=== PATIENT | female | born 1950 | race American Indian/Alaskan Native ===

== ENCOUNTER 2018-09-22 11:21 | Day surgery (SDC) | payer OTHER, MEDICARE ==
[~2018-09-22 11:21] MED LIST: ANCEF/STERILE WATER 2 GM/20 ML IV NR
[2018-09-22] MEDS ORDERED: ZOFRAN ONE (11:25)
[2018-09-22] MEDS ORDERED: DECADRON ONE (11:25)
[2018-09-22] MEDS ORDERED: XYLOCAINE CARDIAC IV ONE (11:25)
[2018-09-22] MEDS ORDERED: DIPRIVAN 10 MG/ML IV ONE (11:26)
[2018-09-22] MEDS ORDERED: SUBLIMAZE ONE (11:26)
[2018-09-22] MEDS ORDERED: LACTATED RINGERS 1,000 ML IV SCH (12:48)
--- NOTE | 2018-09-22 13:20 | Anesthesia Consultation ---
Anesthesia Consult and Med Hx Date of service: 09/22/18 - Airway Anesthetic Teeth Evaluation: Poor, Dentures (full upper, partial lower) ROM Head & Neck: Adequate Mental/Hyoid Distance: Adequate Mallampati Class: Class III Intubation Access Assessment: Possibly Difficult - Pulmonary Exam CTA: Yes - Cardiac Exam Cardiac Exam: RRR - Pre-Operative Health Status ASA Pre-Surgery Classification: ASA3 Proposed Anesthetic Plan: General - Pulmonary Hx Smoking: Yes (STOPPED 1976) Hx Asthma: No Hx Respiratory Symptoms: No COPD: No Hx Sleep Apnea: Yes (no CPAP use) - Cardiovascular System Hx Hypertension: Yes (no antihypertensive today) Hx Coronary Artery Disease: Yes Hx Heart Attack/AMI: No Hx Percutaneous Transluminal Coronary Angioplasty (PTCA): No Hx Cardia Arrhythmia: Yes (pA-fib) Hx Pacemaker: Yes (patient reports that she is not pacer dependent) - Central Nervous System Hx Seizures: No CVA: No - Gastrointestinal Hx Gastroesophageal Reflux Disease: Yes (well controlled) - Endocrine Hx Renal Disease: Yes (CKD) Hx Liver Disease: No Hx Insulin Dependent Diabetes: Yes (insulin prn for glucose >200. Reports no recent insulin use.) Hx Thyroid Disease: No - Hematic Hx Anemia: Yes - Other Systems Hx Cancer: No Hx Obesity: Yes (s/p gastric bypass 2003) - Additional Comments Anesthesia Medical History Comments: No hx anesthetic complications. Previous easy LMA 4 for similar procedure.
[2018-09-22] MEDS ORDERED: SUBLIMAZE IV PRN (13:21)
--- NOTE | 2018-09-22 13:21 | Anesthesia Day of Surgery ---
Anesthesia Day of Surgery - Day of Surgery Patient Examined: Yes Patient H&P Reviewed: Yes Patient is NPO: Yes
[2018-09-22] MEDS ORDERED: OMNIPAQUE (300 MG) IR ONE (13:29)
[2018-09-22] MEDS ORDERED: WATER FOR IRRIG STERILE IR ONE (13:31)
--- NOTE | 2018-09-22 13:48 | Short Stay Summary ---
Short Stay Documentation Date of service: 09/22/18 - History H&P: obtained from office - Allergies and Medications Current Medications: Allergies Sulfa (Sulfonamide Antibiotics) Allergy (Verified 09/03/18 11:09) Itching, VOMITING hydromorphone HCl [From Dilaudid] Adverse Reaction (Verified 09/14/18 14:07) HALLUCINATIONS,confusion oxycodone [From Percocet] Adverse Reaction (Verified 09/03/18 11:09) Itching BANDAIDS Adverse Reaction (Uncoded 09/03/18 11:09) SKIN IRRITATION Home Medications Medication Instructions Recorded Confirmed Last Taken Type Nadolol [Corgard] 40 mg PO DAILY tablet 12/10/15 09/14/18 06/23/18 Rx Mirabegron [Myrbetriq] 50 mg PO QDAY 09/19/16 09/14/18 04/27/18 History Insulin Detemir [Levemir Flextouch] 1 unit SQ QHS PRN 01/28/17 09/14/18 06/22/18 History Pantoprazole [Protonix] 40 mg PO QDAY 01/28/17 09/14/18 06/22/18 History ALPRAZolam [Xanax TAB] 1 mg PO TID 06/29/17 09/14/18 06/22/18 History Clopidogrel Bisulfate [Plavix] 75 mg PO DAILY 06/29/17 09/14/18 06/09/18 History Potassium Citrate (Nf) [Urocit K 5] 10 meq PO BID 06/29/17 09/14/18 06/22/18 History AtorvaSTATin [Lipitor] 20 mg PO QHS 04/16/18 09/14/18 06/22/18 History Ferrous Sulfate [Iron] 325 mg PO DAILY 04/16/18 09/14/18 06/22/18 History HYDROcodone/ACETAMINOPHEN [Flatgap 1 each PO PRN PRN 04/16/18 09/14/18 04/27/18 History 10-325 Tablet] Ondansetron [Zofran TAB] 4 mg PO Q8HR PRN 04/16/18 09/14/18 04/27/18 History amLODIPine [Norvasc] 5 mg PO DAILY 04/16/18 09/14/18 06/22/18 History Active Medications Cefazolin Sodium (Ancef/Sterile Water 2 Gm/20 Ml) 2 gm IV PREOP NR Stop: 09/22/18 20:00 Fentanyl (Sublimaze) 50 mcg IV Q5MIN PRN PRN Reason: Pain , Severe (7-10) Lactated Ringer's (Lactated Ringers) 1,000 mls @ 42 mls/hr IV DIRECT DIONISIO Last Admin: 09/22/18 12:58 Dose: 42 mls/hr Documented by: - Brief post op/procedure progress note Date of procedure: 09/22/18 Pre-op diagnosis: bilat hydro, hx of stones Post-op diagnosis: same Procedure: cysto, bilat rpg, bilat stent removal Anesthesia: GETA Surgeon: TIFFANIE LYNN Estimated blood loss: none Condition: stable - Hospital course Hospital course: macrobid & norco 10mg on chart - Disposition Condition at discharge: Stable Disposition: [id number]-01 TO HOME OR SELFCARE Short Stay Discharge Plan Follow up with: ADA TERRY MD [Primary Care Provider] - 7 Days
--- NOTE | 2018-09-22 14:09 | Operative Report ---
PREOPERATIVE DIAGNOSES: Bilateral hydronephrosis, history of bilateral kidney stones, history of ureteral stricture disease. POSTOPERATIVE DIAGNOSES: Bilateral hydronephrosis, history of bilateral kidney stones, history of ureteral stricture disease. PROCEDURE: Cystoscopy, bilateral retrograde pyelograms, bilateral double-J stent removal. SURGEON: Miguel Newosme MD ANESTHESIA: General. ESTIMATED BLOOD LOSS: Minimal. FLUIDS: Crystalloid. COMPLICATIONS: No complications. INDICATIONS: This patient is a 68-year-old female well known to our service with a diagnosis of kidney stones. She has been managed with a stents, stent exchange for several months. She has a history of diabetes, gastric bypass surgery done in [address] Nick. Over that time, she has developed strictures in the ureters requiring chronic stent placement. She was placed on Urocit-K after a metabolic workup in the past, which she is on now. She is also recently diagnosed with diabetic neuropathy in a setting Dr. Manolo Montes neurologist in the [place]. Last endoscopic evaluation did not see any stones and therefore today we will evaluate and possible leave her stents out. DESCRIPTION OF PROCEDURE: The patient was taken to the operative suite, placed in a supine position. After adequate general anesthesia, placed in a dorsal lithotomy position, prepped and draped in a sterile fashion. Pancystourethroscopy was performed with 22-Kazakh Storz cystoscope. No bladder pathology. Obvious stents could be seen in the bladder, no tumors or stones were noted. Both stents were engaged and pulled out individually. Bilateral retrograde pyelograms were obtained with an 8 Kazakh Karri catheter and 8 mL of contrast. No filling defects or obstruction. She has a large renal pelvis on the left side, which is a normal variant. She has a calcification in the pelvis on the right side that is not in the ureter. No hydronephrosis could be appreciated bilaterally. Stents were left out. Her bladder was drained. She was extubated and taken to recovery room. She will go home on Formoso and Macrobid. JOB# [id number] [facility]
[2018-09-22 14:49] VITALS: BP 150/76
--- NOTE | 2018-09-22 16:56 | Post Anesthesia Evaluation ---
- Post Anesthesia Evaluation Patient Participated: Yes Airway Patent: Yes Stable Respiratory Function: Yes Nausea/Vomiting: No Temp > 96.8F: Yes Pain Manageable: Yes Adequeate Hydration: Yes Anesthesia Complications: No
--- NOTE | 2018-09-23 08:01 | Fluoroscopy Report ---
FLUOROSCOPY RETROGRADE UROGRAPHY: HISTORY: Bilateral hydronephrosis. FINDINGS: Fluoroscopy was provided by radiology during retrograde urography by the urologist. 6 fluoroscopic images were captured. The images demonstrate bilateral ureteral stent removal. No obvious filling defect in the collecting systems as demonstrated. Please correlate with the procedural report as needed. IMPRESSION: Bilateral ureteral stent removal.
== END 2018-09-22 15:40 | disposition home or self-care (01) ==
LOC: OR 11:21 → MERGE 13:00 → OR 15:40
PROVIDERS: ATTEND Urology
DX: N13.30 Unspecified hydronephrosis (principal); E11.40 Type 2 diabetes mellitus with diabetic neuropathy, unspecified; I12.9 Hypertensive chronic kidney disease with stage 1 through stage 4 chronic kidney disease, or unspecified chronic kidney disease; E11.22 Type 2 diabetes mellitus with diabetic chronic kidney disease; N18.9 Chronic kidney disease, unspecified; I25.10 Atherosclerotic heart disease of native coronary artery without angina pectoris; I48.91 Unspecified atrial fibrillation; G47.30 Sleep apnea, unspecified; D64.9 Anemia, unspecified; K21.9 Gastro-esophageal reflux disease without esophagitis; M19.90 Unspecified osteoarthritis, unspecified site; F32.9 Major depressive disorder, single episode, unspecified; E66.9 Obesity, unspecified; Z68.38 Body mass index [BMI] 38.0-38.9, adult; Z98.890 Other specified postprocedural states; Z88.2 Allergy status to sulfonamides; Z79.01 Long term (current) use of anticoagulants; Z79.899 Other long term (current) drug therapy; Z79.4 Long term (current) use of insulin; Z87.891 Personal history of nicotine dependence; Z87.440 Personal history of urinary (tract) infections; Z96.0 Presence of urogenital implants; Z98.41 Cataract extraction status, right eye; Z98.42 Cataract extraction status, left eye; Z95.0 Presence of cardiac pacemaker; Z86.718 Personal history of other venous thrombosis and embolism; Z98.51 Tubal ligation status; Z90.710 Acquired absence of both cervix and uterus; Z88.8 Allergy status to other drugs, medicaments and biological substances
CPT/HCPCS: 52310; 74420; 82803; 82962; A4217; C1758; C1769; J0690; J1100; J2001; J2405; J2704; J3010; J7120; Q9967

== ENCOUNTER 2018-10-08 12:05 | Inpatient (IN) | payer OTHER, MEDICARE ==
[2018-10-08] MEDS ORDERED: SODIUM CHLORIDE FLUSH SYRINGE 10 ML IV PRN (12:11)
[2018-10-08] MEDS ORDERED: TYLENOL PO PRN (12:11)
--- NOTE | 2018-10-08 12:55 | Consultation ---
History of Present Illness - Reason for Consult Consult date: 10/08/18 HTN, DM, Requesting physician: TIFFANIE NEWSOME - History of Present Illness 68 YO Female with Obisity, HTN, DM, CAD, Atrial Fib, GERD, JOSEFINA noncompliant with CPAP admitted to urinary obstruction. Consult placed by Dr. Newsome for DM, HTN. Pt seen and evaluated in her room. Pt denies fever, chills, CP, Palpitations, NVD, Trauma, productive cough, leg swelling, calf pain, hemoptysis, prolonged travel/immobility, skin rash, or recent ill contacts. No reported nursing events. Past History Past Medical History: atrial fib, CAD, diabetes, GERD, hypertension, other (JOSEFINA) Past Surgical History: bowel surgery, Other (Pacemaker placement) Social history: . denies: smoking, alcohol abuse, prescription drug abuse Family history: diabetes, hypertension Medications and Allergies Allergies Allergy/AdvReac Type Severity Reaction Status Date / Time Sulfa (Sulfonamide Allergy Itching, Verified 09/03/18 11:09 Antibiotics) VOMITING hydromorphone HCl AdvReac HALLUCINATI Verified 09/14/18 14:07 [From Dilaudid] ONS,confusi on oxycodone [From Percocet] AdvReac Itching Verified 09/03/18 11:09 BANDAIDS AdvReac SKIN Uncoded 09/03/18 11:09 IRRITATION Home Medications Medication Instructions Recorded Confirmed Last Taken Type Nadolol [Corgard] 40 mg PO DAILY tablet 12/10/15 09/14/18 09/21/18 Rx Mirabegron [Myrbetriq] 50 mg PO QDAY 09/19/16 09/14/18 09/21/18 History Insulin Detemir [Levemir Flextouch] 1 unit SQ QHS PRN 01/28/17 09/14/18 06/22/18 History Pantoprazole [Protonix] 40 mg PO QDAY 01/28/17 09/14/18 09/21/18 History ALPRAZolam [Xanax TAB] 1 mg PO TID 06/29/17 09/14/18 09/21/18 History Clopidogrel Bisulfate [Plavix] 75 mg PO DAILY 06/29/17 09/22/18 7 Days Ago History ~09/15/18 Potassium Citrate (Nf) [Urocit K 5] 10 meq PO BID 06/29/17 09/14/18 09/21/18 History AtorvaSTATin [Lipitor] 20 mg PO QHS 04/16/18 09/14/18 09/21/18 History Ferrous Sulfate [Iron] 325 mg PO DAILY 04/16/18 09/14/18 09/21/18 History HYDROcodone/ACETAMINOPHEN [[place] 1 each PO PRN PRN 04/16/18 09/14/18 09/21/18 History 10-325 Tablet] Ondansetron [Zofran TAB] 4 mg PO Q8HR PRN 04/16/18 09/14/18 09/21/18 History amLODIPine [Norvasc] 5 mg PO DAILY 04/16/18 09/14/18 09/21/18 History Active Meds: Active Medications Acetaminophen (Tylenol) 650 mg PO Q4H PRN PRN Reason: Pain MILD(1-3)/Fever >100.5/MANNING Dextrose (D50w (25gm) Syringe) 50 ml IV PRN PRN PRN Reason: Hypoglycemia Heparin Sodium (Porcine) (Heparin) 5,000 unit SUB-Q Q12HR DIONISIO Sodium Chloride (Nacl 0.45% 1000 Ml) 1,000 mls @ 100 mls/hr IV DIRECT DIONISIO Levofloxacin/Dextrose (Levaquin 500mg/100ml) 500 mg in 100 mls @ 100 mls/hr IV Q24HR DIONISIO; Protocol Ondansetron HCl (Zofran) 4 mg IV Q8H PRN PRN Reason: Nausea And Vomiting Sodium Chloride (Sodium Chloride Flush Syringe 10 Ml) 10 ml IV BID [facility] Sodium Chloride (Sodium Chloride Flush Syringe 10 Ml) 10 ml IV PRN PRN PRN Reason: LINE FLUSH Review of Systems Constitutional: no weight loss, no weight gain, no fever, no chills Ears, nose, mouth and throat: no ear pain, no ear discharge, no tinnitis, no decreased hearing, no nose pain Breasts: no change in shape, no swelling, no mass Cardiovascular: no chest pain, no orthopnea, no palpitations, no rapid/irregular heart beat, no edema Respiratory: no cough, no cough with sputum, no excessive sputum, no hemoptysis Gastrointestinal: no nausea, no vomiting, no diarrhea, no constipation Genitourinary Female: no pelvic pain, no flank pain, no menorrhagia, no dysuria, no urinary frequency, no urgency Rectal: no pain, no incontinence, no bleeding Musculoskeletal: no neck stiffness, no neck pain, no shooting arm pain, no arm numbness/tingling, no low back pain, no shooting leg pain Integumentary: no rash, no pruritis, no redness, no sores, no wounds Neurological: no paralysis, no weakness, no parathesias, no numbness, no tingling, no syncope Psychiatric: no anxiety, no memory loss, no change in sleep habits, no sleep disturbances, no insomnia, no hypersomnia, no change in appetite Endocrine: no cold intolerance, no heat intolerance, no polyphagia, no excessive thirst, no polydipsia, no polyuria Hematologic/Lymphatic: no easy bruising, no easy bleeding, no lymphadenopathy, no lymphedema Allergic/Immunologic: no urticaria, no allergic rhinitis, no wheezing, no persistent infections, no anaphylaxis Exam - Constitutional General appearance: Present: no acute distress, well-nourished - EENT Eyes: Present: PERRL ENT: hearing intact, clear oral mucosa - Neck Neck: Present: supple, normal ROM - Respiratory Respiratory effort: normal Respiratory: bilateral: CTA - Cardiovascular Heart Sounds: Present: S1 & S2. Absent: rub, click - Extremities Extremities: pulses symmetrical, No edema Peripheral Pulses: within normal limits - Abdominal General gastrointestinal: Present: soft, non-tender, non-distended, normal bowel sounds Female genitourinary: Present: normal - Integumentary Integumentary: Present: clear, warm, dry - Musculoskeletal Musculoskeletal: gait normal, strength equal bilaterally - Psychiatric Psychiatric: appropriate mood/affect, intact judgment & insight - Neurologic Neurologic: CNII-XII intact, moves all extremities Results - Labs CBC & Chem 7: 10/08/18 13:14 10/08/18 13:14 Assessment and Plan - Patient Problems (1) HTN (hypertension) Current Visit: Yes Status: Acute Qualifiers: Hypertension type: essential hypertension Qualified Code(s): I10 - Essential (primary) hypertension Plan to address problem: Monitor BP q shift, continue medical management. (2) Diabetes Current Visit: Yes Status: Acute Plan to address problem: ADA diet, insulin, accu check (3) Obesity hypoventilation syndrome Current Visit: Yes Status: Acute Plan to address problem: CPAP qhs, NIPPV as clinically indicated, supplemental oxygen,
[2018-10-08 13:49] LABS: Basophils % (Auto) 0.4 % (0.0-1.8); Eosinophils # (Auto) 0.1 K/mm3 (0.0-0.4); Eosinophils % (Auto) 1.6 % (0.0-4.3); Hematocrit 33.8 % (30.3-42.9); Hemoglobin 10.8 gm/dl (10.1-14.3); Lymphocytes % (Auto) 15.6 % (13.4-35.0); Mean Corpuscular HGB Conc 32 % (30-34); Mean Corpuscular Volume 96 fl (79-97); Monocytes # (Auto) 0.8 K/mm3 (0.0-0.8); Monocytes % (Auto) 13.6 % (0.0-7.3); Platelet Count 241 K/mm3 (140-440); Red Blood Count 3.54 M/mm3 (3.65-5.03); Red Cell Distribution Width 17.2 % (13.2-15.2)
[2018-10-08 13:52] LABS: Calcium 8.1 mg/dL (8.4-10.2)
[2018-10-08] MEDS ORDERED: D50W (25GM) Syringe IV PRN (15:11)
--- NOTE | 2018-10-08 15:22 | XRay Report ---
AP CHEST: HISTORY: Altered mental status There is mild rotation to the left. Heart size and pulmonary vascularity appear borderline. A 2-lead pacemaker device is in place. The lungs are generally clear. No evidence for pneumonia, CHF or pneumothorax. IMPRESSION: Borderline heart size and pulmonary vascularity.
[2018-10-08] MEDS ORDERED: VERSED ONE (16:00)
[2018-10-08] MEDS ORDERED: SUBLIMAZE ONE (16:00)
[2018-10-08] MEDS ORDERED: DIPRIVAN 10 MG/ML IV ONE (16:00)
[2018-10-08] MEDS ORDERED: LACTATED RINGERS 1,000 ML ONE (16:02)
--- NOTE | 2018-10-08 16:10 | Anesthesia Day of Surgery ---
Anesthesia Day of Surgery - Day of Surgery Patient Examined: Yes Patient H&P Reviewed: Yes Patient is NPO: Yes Beta Blockers: No Tito's Test: N/A
--- NOTE | 2018-10-08 16:30 | Anesthesia Consultation ---
Anesthesia Consult and Med Hx Date of service: 10/08/18 - Airway Anesthetic Teeth Evaluation: Poor, Dentures ROM Head & Neck: Adequate Mental/Hyoid Distance: Adequate Mallampati Class: Class III Intubation Access Assessment: Good - Pulmonary Exam CTA: Yes - Cardiac Exam Cardiac Exam: RRR - Pre-Operative Health Status ASA Pre-Surgery Classification: ASA4 Proposed Anesthetic Plan: General - Pulmonary Hx Smoking: Yes (STOPPED 1976) Hx Asthma: No Hx Respiratory Symptoms: No SOB: Yes (SOB) COPD: No Hx Sleep Apnea: Yes (no CPAP use) - Cardiovascular System Hx Hypertension: Yes (no antihypertensive today) Hx Coronary Artery Disease: Yes Hx Heart Attack/AMI: No Hx Percutaneous Transluminal Coronary Angioplasty (PTCA): No Hx Cardia Arrhythmia: Yes (pA-fib) Hx Pacemaker: Yes (patient reports that she is not pacer dependent) - Central Nervous System Hx Seizures: No CVA: No - Gastrointestinal Hx Gastroesophageal Reflux Disease: Yes (well controlled) - Endocrine Hx Renal Disease: Yes (CKD) Hx Liver Disease: No Hx Insulin Dependent Diabetes: Yes (insulin prn for glucose >200. Reports no recent insulin use.) Hx Thyroid Disease: No - Hematic Hx Anemia: Yes - Other Systems Hx Cancer: No Hx Obesity: Yes (s/p gastric bypass 2003) - Additional Comments Anesthesia Medical History Comments: Per report, no problems with anesthesia. ASA IV here for cystocopy and bilateral stent placements.
[2018-10-08] MEDS ORDERED: LEVAQUIN 500MG/100ML 500 MG/100 ML BAG IV ONE (16:41)
--- NOTE | 2018-10-08 16:43 | Cat Scan Report ---
FINAL REPORT PROCEDURE: CT abdomen and pelvis without contrast. TECHNIQUE: Computerized axial tomography of the abdomen and pelvis was performed without intravenous contrast. This study is performed without intravascular contrast material and its sensitivity for ab dominal and pelvic pathology, including neoplasms, inflammation, abscess, free fluid, thrombosis, art erial dissection and infarction, is reduced compared with a contrast enhanced study. HISTORY: Hydronephrosis, sepsis. COMPARISON: No prior studies are available for comparison. FINDINGS: The lung bases are clear. There are no pleural effusions. The heart size is normal. Pacemaker leads a re noted. The liver, pancreas and spleen are grossly normal. Cholecystectomy clips are present. There is no biliary dilatation. The adrenal glands are not enlarged. There are bilateral low-attenuation m asses in the kidneys. These probably represent simple cysts, but are incompletely evaluated without c ontrast enhancement. There is severe hydronephrosis bilaterally. There is bilateral hydroureter. Ther e are 2 obstructing calculi in the distal right ureter. The largest measures 7.2 millimeters x 6.7 mi llimeters in cross-section. There is a nonobstructing calculus in the lower pole of the left kidney. This measures 8.4 millimeters. There is an obstructing calculus in the distal left ureter. This measu res 5.8 millimeters x 4.8 millimeters in cross-section. Given the severe hydronephrosis and hydrouret er bilaterally, referral to a urologist is strongly recommended. The abdominal aorta has a normal james iber. There is no retroperitoneal adenopathy. The unopacified gastrointestinal tract is unremarkable. The anterior abdominal wall is incompletely visualized. The appendix is not visualized. The bladder is nearly empty. The uterus has been removed. The regional skeleton appears intact. IMPRESSION: Severe bilateral hydronephrosis and hydroureter. Bilateral obstructing calculi in the distal ureters as described. Additional nonobstructing calculus in the left kidney. Referral to a urologist strongly recommended.
[2018-10-08] MEDS ORDERED: OMNIPAQUE 300 MG/50 ML (CATH LAB) IV ONE (17:10)
--- NOTE | 2018-10-08 17:29 | Post Operative Note ---
Date of procedure: 10/08/18 Pre-op diagnosis: bilat hydro Post-op diagnosis: other (stricture, ureteral bilat) Procedure: cysto, rpg, rt stent , attempted left stent (on plavix) Surgeon: TIFFANIE LYNN Pathology: none Specimen disposition: to lab Disposition: PACU (pt may need left perc tube)
[2018-10-08] MEDS ORDERED: AMIDATE IV ONE (17:31)
[2018-10-08] MEDS ORDERED: NEO SYNEPHRINE/NS Syringe(OR USE) IV ONE (17:31)
[2018-10-08] MEDS ORDERED: ZOFRAN ONE (17:32)
--- NOTE | 2018-10-08 19:50 | Operative Report ---
PREOPERATIVE DIAGNOSIS: Bilateral hydronephrosis. POSTOPERATIVE DIAGNOSES: Bilateral hydronephrosis due to bilateral ureteral strictures. PROCEDURE: Cystoscopy, bilateral retrograde pyelogram, right double-J stent placement (6-Mozambican 22 cm with a short internal string attempted left stent placement). SURGEON: Miguel Newsome MD ANESTHESIA: General. ESTIMATED BLOOD LOSS: Minimal. FLUIDS: Crystalloid. COMPLICATIONS: No complications. INDICATIONS FOR PROCEDURE: This patient is a 68-year-old female known to our service with long history of urolithiasis and strictures. She has a metabolic abnormality due to bariatric surgery some 20+ years ago. She was rendered stone free several months ago. Her stents were removed. She had done well until recently she presented to the office confused. Ultrasound revealed bilateral hydronephrosis. She was directly admitted to the hospital. CT of abdomen and pelvis confirmed bilateral hydro, renal insufficiency. She was then taken to surgery. DESCRIPTION OF PROCEDURE: The patient was taken to the operative suite, placed in the supine position. She was also on Plavix due to atrial fibrillation. The patient was taken to the operative suite, placed in a supine position, after adequate general anesthesia, placed in a dorsal lithotomy position, prepped and draped in a sterile fashion. Pancystourethroscopy was performed with 22-Mozambican Storz cystoscope. The patient had cloudy urine, sent for culture on the floor. Bilateral retrograde pyelograms were obtained with an 8-Mozambican [place] catheter and 8 mL of contrast, obvious distal stricture approximately 3 cm above the ureteral orifice bilaterally. I did not attempt to inject for complete pyelogram. Therefore, went to place stents, 0.035 Glidewire was placed in the right collecting system. A 6 x 22 double-J stent was placed with a short string. Attempts to place a Glidewire on the left side was unsuccessful, could get it past the initial stricture, but it appears that there was a second more dense stricture proximal, wire could not advance. At this point, I elected to since the right side was stented, leave a Mills, will leave her off her Plavix. If her symptoms worsen, she will need a left nephrostomy tube. JOB# [id number] [facility]/[place]
[2018-10-08] MEDS ORDERED: PERCOCET 5/325 PO PRN (20:51)
[2018-10-08] MEDS ORDERED: ZOFRAN IV PRN (20:52)
[2018-10-08] MEDS: LEVAQUIN 500MG/100ML 500 MG/100 ML BAG IV SCH (21:20)
[2018-10-08] MEDS ORDERED: HEPARIN SUB-Q SCH (22:00)
[2018-10-08] MEDS: MORPHINE IV PRN (22:08)
[2018-10-08] MEDS: SODIUM CHLORIDE FLUSH SYRINGE 10 ML IV SCH (22:42)
[2018-10-09] MEDS: NORCO 10/325 PO PRN (02:45)
[2018-10-09] MEDS: NACL 0.45% 1000 ML 1,000 ML IV SCH (02:46)
[2018-10-09 04:45] LABS: Basophils % (Auto) 0.4 % (0.0-1.8); Eosinophils # (Auto) 0.1 K/mm3 (0.0-0.4); Hematocrit 29.3 % (30.3-42.9); Hemoglobin 9.5 gm/dl (10.1-14.3); Lymphocytes # (Auto) 0.9 K/mm3 (1.2-5.4); Lymphocytes % (Auto) 14.9 % (13.4-35.0); Mean Corpuscular HGB Conc 32 % (30-34); Mean Corpuscular Volume 94 fl (79-97); Monocytes # (Auto) 0.8 K/mm3 (0.0-0.8); Monocytes % (Auto) 13.5 % (0.0-7.3); Platelet Count 214 K/mm3 (140-440); Red Blood Count 3.13 M/mm3 (3.65-5.03)
[2018-10-09] MEDS: MORPHINE IV PRN ×3 (04:54→17:26)
[2018-10-09 05:05] LABS: Calcium 7.6 mg/dL (8.4-10.2)
--- NOTE | 2018-10-09 13:40 | Progress Note ---
Assessment and Plan Assessment and plan: 68 YO Female with Obisity, HTN, DM, CAD, Atrial Fib, GERD, JOSEFINA noncompliant with CPAP admitted to urinary obstruction. Consult placed by Dr. Newsome for DM, HTN. Pt seen and evaluated in her room. Bilateral ureteral stricture with hydronephrosis, obstructive uropathy -management per urology sp cysto, rpg, rt stent, left stent could not be placed, may need left perc tube per urology HTN (hypertension) Monitor BP q shift, continue medical management. Diabetes ADA diet, insulin, accu check dvt ppx per primary team History Interval history: Complaining of pain in her back Review of systems Constitutional: No fevers, no malaise, no joint pains CVS: No chest pain, no orthopnea, no dyspnea on exertion, no pedal edema GI: No abdominal pain, no diarrhea, no vomiting, no constipation Respiratory: No shortness of breath, no wheezing, no coughing Hospitalist Physical - Physical exam Narrative exam: General.: Appears well, no distress, nontoxic HEENT: Moist mucous membranes, extraocular muscles intact, no lymphadenopathy Neck: supple Cardiac: S1-S2 heard Lungs: clear to auscultation bilaterally Abdomen: soft , nontender, nondistended, bowel sounds positive Extremities: no edema clubbing or cyanosis Skin: no rash or lesions Neurologic: no gross focal deficits Psych: calm, and cooperative - Constitutional Vitals: Temp Pulse Resp BP Pulse Ox 99.5 F 94 H 17 101/64 98 10/09/18 03:26 10/09/18 03:26 10/09/18 03:26 10/09/18 03:26 10/09/18 03:26 General appearance: Present: no acute distress, well-nourished Results - Labs CBC & Chem 7: 10/09/18 04:18 10/10/18 09:04 Labs: Laboratory Last Values WBC 5.9 K/mm3 (4.5-11.0) 10/09/18 04:18 RBC 3.13 M/mm3 (3.65-5.03) L 10/09/18 04:18 Hgb 9.5 gm/dl (10.1-14.3) L 10/09/18 04:18 Hct 29.3 % (30.3-42.9) L 10/09/18 04:18 MCV 94 fl (79-97) 10/09/18 04:18 MCH 30 pg (28-32) 10/09/18 04:18 MCHC 32 % (30-34) 10/09/18 04:18 RDW 17.0 % (13.2-15.2) H 10/09/18 04:18 Plt Count 214 K/mm3 (140-440) 10/09/18 04:18 Lymph % (Auto) 14.9 % (13.4-35.0) 10/09/18 04:18 [place] % (Auto) 13.5 % (0.0-7.3) H 10/09/18 04:18 Eos % (Auto) 1.0 % (0.0-4.3) 10/09/18 04:18 Baso % (Auto) 0.4 % (0.0-1.8) 10/09/18 04:18 Lymph # 0.9 K/mm3 (1.2-5.4) L 10/09/18 04:18 [place] # 0.8 K/mm3 (0.0-0.8) 10/09/18 04:18 Eos # 0.1 K/mm3 (0.0-0.4) 10/09/18 04:18 Baso # 0.0 K/mm3 (0.0-0.1) 10/09/18 04:18 Seg Neutrophils % 70.2 % (40.0-70.0) H 10/09/18 04:18 Seg Neutrophils # 4.2 K/mm3 (1.8-7.7) 10/09/18 04:18 Sodium 141 mmol/L (137-145) 10/09/18 04:18 Potassium 4.8 mmol/L (3.6-5.0) 10/09/18 04:18 Chloride 113.2 mmol/L (98-107) H 10/09/18 04:18 Carbon Dioxide 16 mmol/L (22-30) L 10/09/18 04:18 Anion Gap 17 mmol/L 10/09/18 04:18 BUN 27 mg/dL (7-17) H 10/09/18 04:18 Creatinine 2.7 mg/dL (0.7-1.2) H 10/09/18 04:18 Estimated GFR 21 ml/min 10/09/18 04:18 BUN/Creatinine Ratio 10 % 10/09/18 04:18 Glucose 88 mg/dL (65-100) 10/09/18 04:18 POC Glucose 81 (70-105) 10/09/18 11:56 Calcium 7.6 mg/dL (8.4-10.2) L 10/09/18 04:18
[2018-10-09] MEDS: LEVAQUIN 500MG/100ML 500 MG/100 ML BAG IV SCH (17:27)
[2018-10-09] MEDS: SODIUM CHLORIDE FLUSH SYRINGE 10 ML IV SCH ×2 (17:27→21:58)
[2018-10-10] MEDS: MORPHINE IV PRN ×3 (00:10→13:23)
[2018-10-10] MEDS: ZOFRAN IV PRN ×3 (00:11→13:23)
[2018-10-10] MEDS: NORCO 10/325 PO PRN ×3 (04:07→23:29)
[2018-10-10] MEDS: NACL 0.45% 1000 ML 1,000 ML IV SCH (04:10)
--- NOTE | 2018-10-10 08:48 | Progress Note ---
Assessment and Plan hydro needs ir check creat Subjective Date of service: 10/10/18 Principal diagnosis: hydro Objective - Constitutional Vitals: Vital Signs - 12hr 10/09/18 10/09/18 10/10/18 20:48 23:49 03:43 Temperature 98.8 F 98.6 F Pulse Rate 92 H 90 Respiratory 17 17 Rate Blood Pressure 129/69 108/59 Blood Pressure [Left] O2 Sat by Pulse 94 99 98 Oximetry 10/10/18 10/10/18 08:01 08:11 Temperature 98.2 F Pulse Rate 84 85 Respiratory 16 Rate Blood Pressure Blood Pressure 106/76 [Left] O2 Sat by Pulse 100 Oximetry General appearance: Present: no acute distress - Respiratory Respiratory effort: normal - Labs CBC & Chem 7: 10/09/18 04:18 10/09/18 04:18 Medications & Allergies - Medications Allergies/Adverse Reactions: Allergies Sulfa (Sulfonamide Antibiotics) Allergy (Verified 09/03/18 11:09) Itching, VOMITING hydromorphone HCl [From Dilaudid] Adverse Reaction (Verified 09/14/18 14:07) HALLUCINATIONS,confusion oxycodone [From Percocet] Adverse Reaction (Verified 09/03/18 11:09) Itching BANDAIDS Adverse Reaction (Uncoded 09/03/18 11:09) SKIN IRRITATION Home Medications: Home Medications Medication Instructions Recorded Confirmed Last Taken Type Nadolol [Corgard] 40 mg PO DAILY tablet 12/10/15 09/14/18 09/21/18 Rx Mirabegron [Myrbetriq] 50 mg PO QDAY 09/19/16 09/14/18 09/21/18 History Insulin Detemir [Levemir Flextouch] 1 unit SQ QHS PRN 01/28/17 09/14/18 06/22/18 History Pantoprazole [Protonix] 40 mg PO QDAY 01/28/17 09/14/18 09/21/18 History ALPRAZolam [Xanax TAB] 1 mg PO TID 06/29/17 09/14/18 09/21/18 History Clopidogrel Bisulfate [Plavix] 75 mg PO DAILY 06/29/17 09/22/18 7 Days Ago Hi story ~09/15/18 Potassium Citrate (Nf) [Urocit K 5] 10 meq PO BID 1109/14/18 09/21/18 History AtorvaSTATin [Lipitor] 20 mg PO QHS 04/16/18 09/14/18 09/21/18 History Ferrous Sulfate [Iron] 325 mg PO DAILY 04/16/18 09/14/18 09/21/18 History HYDROcodone/ACETAMINOPHEN [[place] 1 each PO PRN PRN 04/16/18 09/14/18 09/21/18 History 10-325 Tablet] Ondansetron [Zofran TAB] 4 mg PO Q8HR PRN 04/16/18 09/14/18 09/21/18 History amLODIPine [Norvasc] 5 mg PO DAILY 04/16/18 09/14/18 09/21/18 History Active Medications: Generic Name Dose Route Start Last Admin Trade Name Freq PRN Reason Stop Dose Admin Acetaminophen/Hydrocodone Bitart 1 each 10/08/18 21:43 10/10/18 04:07 [place] 10/325 PO 1 each Q4H PRN Administration Pain, Moderate (4-6) Dextrose 50 ml 10/08/18 15:11 D50w (25gm) Syringe IV PRN PRN Hypoglycemia Sodium Chloride 1,000 mls @ 100 mls/hr 10/08/18 15:00 10/10/18 04:10 Nacl 0.45% 1000 Ml IV 100 mls/hr DIRECT DIONISIO Administration Levofloxacin/Dextrose 500 mg in 100 mls @ 100 mls/hr 10/08/18 16:00 10/09/18 20:18 Levaquin 500mg/100ml IV Infused Q24H DIONISIO Infusion Protocol Morphine Sulfate 2 mg 10/08/18 21:44 10/10/18 06:12 Morphine IV 2 mg Q4H PRN Administration Pain, Moderate (4-6) Ondansetron HCl 4 mg 10/08/18 12:11 10/10/18 04:12 Zofran IV 4 mg Q8H PRN Administration Nausea And Vomiting Sodium Chloride 10 ml 10/08/18 22:00 10/09/18 21:58 Sodium Chloride Flush Syringe 10 Ml IV 10 ml BID DIONISIO Administration Sodium Chloride 10 ml 10/08/18 12:11 Sodium Chloride Flush Syringe 10 Ml IV PRN PRN LINE FLUSH
[2018-10-10 10:39] LABS: Calcium 7.3 mg/dL (8.4-10.2)
--- NOTE | 2018-10-10 13:35 | Progress Note ---
Assessment and Plan Assessment and plan: 68 YO Female with Obisity, HTN, DM, CAD, Atrial Fib, GERD, JOSEFINA noncompliant with CPAP admitted to urinary obstruction. Consult placed by Dr. Newsome for DM, HTN. Pt seen and evaluated in her room. Bilateral ureteral stricture with hydronephrosis, obstructive uropathy -management per urology sp cysto, rpg, rt stent, left stent could not be placed, may need left perc tube per urology HTN (hypertension) Monitor BP q shift, continue medical management. Diabetes ADA diet, insulin, accu check dvt ppx per primary team History Interval history: Complaining of pain in her back Review of systems Constitutional: No fevers, no malaise, no joint pains CVS: No chest pain, no orthopnea, no dyspnea on exertion, no pedal edema GI: No abdominal pain, no diarrhea, no vomiting, no constipation Respiratory: No shortness of breath, no wheezing, no coughing Hospitalist Physical - Physical exam Narrative exam: General.: Appears well, no distress, nontoxic HEENT: Moist mucous membranes, extraocular muscles intact, no lymphadenopathy Neck: supple Cardiac: S1-S2 heard Lungs: clear to auscultation bilaterally Abdomen: soft , nontender, nondistended, bowel sounds positive Extremities: no edema clubbing or cyanosis Skin: no rash or lesions Neurologic: no gross focal deficits Psych: calm, and cooperative - Constitutional Vitals: Temp Pulse Resp BP Pulse Ox 98.2 F 85 16 106/76 100 10/10/18 08:01 10/10/18 08:11 10/10/18 13:23 10/10/18 08:01 10/10/18 08:11 General appearance: Present: no acute distress Results - Labs CBC & Chem 7: 10/12/18 11:55 10/12/18 11:55 Labs: Laboratory Last Values WBC 5.9 K/mm3 (4.5-11.0) 10/09/18 04:18 RBC 3.13 M/mm3 (3.65-5.03) L 10/09/18 04:18 Hgb 9.5 gm/dl (10.1-14.3) L 10/09/18 04:18 Hct 29.3 % (30.3-42.9) L 10/09/18 04:18 MCV 94 fl (79-97) 10/09/18 04:18 MCH 30 pg (28-32) 10/09/18 04:18 MCHC 32 % (30-34) 10/09/18 04:18 RDW 17.0 % (13.2-15.2) H 10/09/18 04:18 Plt Count 214 K/mm3 (140-440) 10/09/18 04:18 Lymph % (Auto) 14.9 % (13.4-35.0) 10/09/18 04:18 [place] % (Auto) 13.5 % (0.0-7.3) H 10/09/18 04:18 Eos % (Auto) 1.0 % (0.0-4.3) 10/09/18 04:18 Baso % (Auto) 0.4 % (0.0-1.8) 10/09/18 04:18 Lymph # 0.9 K/mm3 (1.2-5.4) L 10/09/18 04:18 [place] # 0.8 K/mm3 (0.0-0.8) 10/09/18 04:18 Eos # 0.1 K/mm3 (0.0-0.4) 10/09/18 04:18 Baso # 0.0 K/mm3 (0.0-0.1) 10/09/18 04:18 Seg Neutrophils % 70.2 % (40.0-70.0) H 10/09/18 04:18 Seg Neutrophils # 4.2 K/mm3 (1.8-7.7) 10/09/18 04:18 Sodium 139 mmol/L (137-145) 10/10/18 09:04 Potassium 5.0 mmol/L (3.6-5.0) 10/10/18 09:04 Chloride 111.2 mmol/L (98-107) H 10/10/18 09:04 Carbon Dioxide 18 mmol/L (22-30) L 10/10/18 09:04 Anion Gap 15 mmol/L 10/10/18 09:04 BUN 22 mg/dL (7-17) H 10/10/18 09:04 Creatinine 2.6 mg/dL (0.7-1.2) H 10/10/18 09:04 Estimated GFR 22 ml/min 10/10/18 09:04 BUN/Creatinine Ratio 8 % 10/10/18 09:04 Glucose 96 mg/dL (65-100) 10/10/18 09:04 POC Glucose 81 (70-105) 10/10/18 12:05 Calcium 7.3 mg/dL (8.4-10.2) L 10/10/18 09:04
--- NOTE | 2018-10-10 14:24 | Consultation ---
History of Present Illness - Reason for Consult Consult date: 10/10/18 Hydronephrosis - History of Present Illness 68 YO Female with Obisity, HTN, DM, CAD, Atrial Fib, GERD, JOSEFINA noncompliant with CPAP admitted to urinary obstruction. Consult placed by Dr. Newsome for DM, HTN. Pt seen and evaluated in her room. Pt denies fever, chills, CP, Palpitations, NVD, Trauma, productive cough, leg swelling, calf pain, hemoptysis, prolonged travel/immobility, skin rash, or recent ill contacts. No reported nursing events. Had right ureteral stent placed. Could not place left sided stent. Discussed le ft nephrostomy with patient and daughter. Has had multiple nephrostomy tubes in the past. R/B/A discussed. Past History Past Medical History: atrial fib, CAD, diabetes, GERD, hypertension, other (JOSEFINA) Past Surgical History: bowel surgery, Other (Pacemaker placement) Social history: . denies: smoking, alcohol abuse, prescription drug abuse Family history: diabetes, hypertension Medications and Allergies Allergies Allergy/AdvReac Type Severity Reaction Status Date / Time Sulfa (Sulfonamide Allergy Itching, Verified 09/03/18 11:09 Antibiotics) VOMITING hydromorphone HCl AdvReac HALLUCINATI Verified 09/14/18 14:07 [From Dilaudid] ONS,confusi on oxycodone [From Percocet] AdvReac Itching Verified 09/03/18 11:09 BANDAIDS AdvReac SKIN Uncoded 09/03/18 11:09 IRRITATION Home Medications Medication Instructions Recorded Confirmed Last Taken Type RX: Nadolol [Corgard] 40 mg PO DAILY tablet 12/10/15 10/10/18 10/08/18 10:00 Rx Mirabegron [Myrbetriq] 50 mg PO QDAY 09/19/16 10/10/18 10/08/18 History Insulin Detemir [Levemir Flextouch] 1 unit SQ QHS PRN 01/28/17 10/10/18 06/22/18 History Pantoprazole [Protonix] 40 mg PO QDAY 01/28/17 10/10/18 10/08/18 10:00 History Clopidogrel Bisulfate [Plavix] 75 mg PO DAILY 06/29/17 10/10/18 7 Days Ago History ~09/15/18 Potassium Citrate (Nf) [Urocit K 5] 10 meq PO BID 06/29/17 10/10/18 10/08/18 History RX: ALPRAZolam [Xanax TAB] 1 mg PO TID 06/29/17 10/10/18 09/21/18 History AtorvaSTATin [Lipitor] 20 mg PO QHS 04/16/18 10/10/18 09/21/18 History Ferrous Sulfate [Iron] 325 mg PO DAILY 04/16/18 10/10/18 10/08/18 History HYDROcodone/ACETAMINOPHEN [[place] 1 each PO PRN PRN 04/16/18 10/10/18 10/08/18 History 10-325 Tablet] Ondansetron [Zofran TAB] 4 mg PO Q8HR PRN 04/16/18 10/10/18 10/08/18 History amLODIPine [Norvasc] 5 mg PO DAILY 04/16/18 10/10/18 10/08/18 10:00 History Active Meds: Active Medications Acetaminophen/Hydrocodone Bitart ([place] 10/325) 1 each PO Q4H PRN PRN Reason: Pain, Moderate (4-6) Last Admin: 10/10/18 04:07 Dose: 1 each Documented by: Dextrose (D50w (25gm) Syringe) 50 ml IV PRN PRN PRN Reason: Hypoglycemia Sodium Chloride (Nacl 0.45% 1000 Ml) 1,000 mls @ 100 mls/hr IV DIRECT DIONISIO Last Admin: 10/10/18 04:10 Dose: 100 mls/hr Documented by: Levofloxacin/Dextrose (Levaquin 500mg/100ml) 500 mg in 100 mls @ 100 mls/hr IV Q24H DIONISIO; Protocol Last Infusion: 10/09/18 20:18 Dose: Infused Documented by: Morphine Sulfate (Morphine) 2 mg IV Q4H PRN PRN Reason: Pain, Moderate (4-6) Last Admin: 10/10/18 13:23 Dose: 2 mg Documented by: Ondansetron HCl (Zofran) 4 mg IV Q8H PRN PRN Reason: Nausea And Vomiting Last Admin: 10/10/18 13:23 Dose: 4 mg Documented by: Sodium Chloride (Sodium Chloride Flush Syringe 10 Ml) 10 ml IV BID DIONISIO Last Admin: 10/09/18 21:58 Dose: 10 ml Documented by: Sodium Chloride (Sodium Chloride Flush Syringe 10 Ml) 10 ml IV PRN PRN PRN Reason: LINE FLUSH Review of Systems All systems: negative (see HPI) Exam - Constitutional Vitals: Temp Pulse Resp BP Pulse Ox 98.2 F 85 16 106/76 100 10/10/18 08:01 10/10/18 08:11 10/10/18 13:23 10/10/18 08:01 10/10/18 08:11 General appearance: Present: mild distress (mild right flank pain) - EENT Eyes: Present: EOM intact - Respiratory Respiratory effort: normal - Extremities Extremities: normal temperature, normal color - Psychiatric Psychiatric: appropriate mood/affect, cooperative Results - Labs CBC & Chem 7: 10/09/18 04:18 10/10/18 09:04 Labs: Abnormal lab results 10/10/18 Range/Units 09:04 Chloride 111.2 H (98-107) mmol/L Carbon Dioxide 18 L (22-30) mmol/L BUN 22 H (7-17) mg/dL Creatinine 2.6 H (0.7-1.2) mg/dL Calcium 7.3 L (8.4-10.2) mg/dL - Imaging and Cardiology CT scan - abdomen: report reviewed, image reviewed Assessment and Plan 68 year old female with renal calculi, CRI with possible superimposed MAURICIO, bilateral hydronephrosis with obstructing renal calculi and cystoscopy with right sided ureteral stent placed. Off of plavix for at least 1 week per patient and daughter. Confirmed with them multiple times. NPO after MN. Plan for left nephrostomy tube placement and possible ureteral stent.
[2018-10-10] MEDS: SODIUM CHLORIDE FLUSH SYRINGE 10 ML IV SCH ×2 (15:01→21:43)
[2018-10-10] MEDS ORDERED: INSULIN DETEMIR SQ PRN (16:36)
[2018-10-10] MEDS ORDERED: NORCO 10/325 PO PRN (16:36)
[2018-10-10] MEDS: LEVAQUIN 500MG/100ML 500 MG/100 ML BAG IV SCH (19:53)
[2018-10-10] MEDS: LEVAQUIN PO SCH (19:53)
[2018-10-10] MEDS ORDERED: LEVAQUIN PO SCH (20:00)
[2018-10-10] MEDS: XANAX PO SCH (21:41)
[2018-10-10] MEDS ORDERED: POTASSIUM CITRATE 10 MEQ PO SCH (22:00)
[2018-10-10] MEDS: ZOFRAN ODT PO PRN (23:28)
[2018-10-11] MEDS: MORPHINE IV PRN ×2 (05:47→22:01)
--- NOTE | 2018-10-11 07:32 | Fluoroscopy Report ---
FLUOROSCOPY RETROGRADE UROGRAPHY: HISTORY: Bilateral ureteral strictures. FINDINGS: Fluoroscopy was provided by radiology during retrograde urography by the urologist. 6 fluoroscopic images were captured. The images demonstrate high grade focal strictures in both distal ureters near the level of S3. A right ureteral stent was placed with good drainage of the right collecting system. Left ureteral stent placement was attempted but unsuccessful procedure operative notes. IMPRESSION: Bilateral ureteral strictures as described. Right ureteral stent placement. Please correlate with the operative report as needed.
[2018-10-11] MEDS: PROTONIX PO SCH (09:05)
[2018-10-11] MEDS: XANAX PO SCH ×3 (09:05→20:10)
[2018-10-11] MEDS: ZOFRAN IV PRN ×2 (09:06→22:04)
[2018-10-11] MEDS ORDERED: NON-FORMULARY (Mirabegron [Myrbetriq] 50 MG) PO SCH (10:00)
[2018-10-11] MEDS: PLAVIX PO SCH (10:15)
[2018-10-11] MEDS: CORGARD PO SCH (10:15)
[2018-10-11] MEDS: NORVASC PO SCH (10:15)
[2018-10-11] MEDS: FEOSOL PO SCH (10:15)
[2018-10-11] MEDS: SODIUM CHLORIDE FLUSH SYRINGE 10 ML IV SCH (10:16)
--- NOTE | 2018-10-11 12:53 | Progress Note ---
Subjective Date of service: 10/11/18 Principal diagnosis: hydro Interval history: s/p rt stent attemped left Dr. Naik saw for perc +/- stent tomorrow (left) kidney fx better Objective - Constitutional Vitals: Vital Signs - 12hr 10/11/18 10/11/18 10/11/18 04:02 07:04 07:28 Temperature 98.6 F 98.0 F Pulse Rate 83 83 Respiratory 17 20 Rate Blood Pressure 105/55 113/61 O2 Sat by Pulse 98 98 95 Oximetry 10/11/18 11:14 Temperature 98.0 F Pulse Rate 90 Respiratory 16 Rate Blood Pressure 102/54 O2 Sat by Pulse 99 Oximetry - Labs CBC & Chem 7: 10/09/18 04:18 10/10/18 09:04 Labs: Abnormal lab results 10/11/18 Range/Units 00:25 POC Glucose 118 H (70-105) Medications & Allergies - Medications Allergies/Adverse Reactions: Allergies Sulfa (Sulfonamide Antibiotics) Allergy (Verified 09/03/18 11:09) Itching, VOMITING hydromorphone HCl [From Dilaudid] Adverse Reaction (Verified 09/14/18 14:07) HALLUCINATIONS,confusion oxycodone [From Percocet] Adverse Reaction (Verified 09/03/18 11:09) Itching BANDAIDS Adverse Reaction (Uncoded 09/03/18 11:09) SKIN IRRITATION Home Medications: Home Medications Medication Instructions Recorded Confirmed Last Taken Type Nadolol [Corgard] 40 mg PO DAILY tablet 12/10/15 10/10/18 10/08/18 10:00 Rx Mirabegron [Myrbetriq] 50 mg PO QDAY 09/19/16 10/10/18 10/08/18 History Insulin Detemir [Levemir Flextouch] 1 unit SQ QHS PRN 01/28/17 10/10/18 06/22/18 History Pantoprazole [Protonix] 40 mg PO QDAY 01/28/17 10/10/18 10/08/18 10:00 History ALPRAZolam [Xanax TAB] 1 mg PO TID 06/29/17 10/10/18 09/21/18 History Clopidogrel Bisulfate [Plavix] 75 mg PO DAILY 06/29/17 10/10/18 7 Days Ago History ~09/15/18 Potassium Citrate (Nf) [Urocit K 5] 10 meq PO BID 06/29/17 10/10/18 10/08/18 History AtorvaSTATin [Lipitor] 20 mg PO QHS 04/16/18 10/10/18 09/21/18 History Ferrous Sulfate [Iron] 325 mg PO DAILY 04/16/18 10/10/18 10/08/18 History HYDROcodone/ACETAMINOPHEN [[place] 1 each PO PRN PRN 04/16/18 10/10/18 10/08/18 History 10-325 Tablet] Ondansetron [Zofran TAB] 4 mg PO Q8HR PRN 04/16/18 10/10/18 10/08/18 History amLODIPine [Norvasc] 5 mg PO DAILY 04/16/18 10/10/18 10/08/18 10:00 History Active Medications: Generic Name Dose Route Start Last Admin Trade Name Freq PRN Reason Stop Dose Admin Acetaminophen/Hydrocodone Bitart 1 each 10/08/18 21:43 10/10/18 23:29 [place] 10/325 PO 1 each Q4H PRN Administration Pain, Moderate (4-6) Acetaminophen/Hydrocodone Bitart 1 each 10/10/18 16:36 [place] 10/325 PO Q6H PRN Pain , Severe (7-10) Alprazolam 1 mg 10/10/18 20:00 10/11/18 09:05 Xanax PO 1 mg TID DIONISIO Administration Amlodipine Besylate 5 mg 10/11/18 10:00 10/11/18 10:15 Norvasc PO Not Given DAILY DIONISIO Atorvastatin Calcium 20 mg 10/10/18 22:00 10/10/18 21:28 Lipitor PO 20 mg QHS DIONISIO Administration Clopidogrel Bisulfate 75 mg 10/11/18 10:00 10/11/18 10:15 Plavix PO Not Given DAILY [facility] Dextrose 50 ml 10/08/18 15:11 D50w (25gm) Syringe IV PRN PRN Hypoglycemia Ferrous Sulfate 325 mg 10/11/18 10:00 10/11/18 10:15 Feosol PO Not Given DAILY DIONISIO Sodium Chloride 1,000 mls @ 100 mls/hr 10/08/18 15:00 10/10/18 04:10 Nacl 0.45% 1000 Ml IV 100 mls/hr DIRECT DIONISIO Administration Levofloxacin 750 mg 10/10/18 20:00 10/10/18 21:41 Levaquin PO 750 mg Q24H DIONISIO Administration Miscellaneous Medication 1 unit 10/10/18 16:36 Insulin Detemir [Levemir Flextouch] SQ QHS PRN Hyperglycemia Miscellaneous Medication 50 mg 10/11/18 10:00 Mirabegron [Myrbetriq] PO QDAY [facility] Miscellaneous Medication 10 meq 10/10/18 22:00 Potassium Citrate (Nf) PO BID [facility] Morphine Sulfate 2 mg 10/08/18 21:44 10/11/18 05:47 Morphine IV 2 mg Q4H PRN Administration Pain, Moderate (4-6) Nadolol 40 mg 10/11/18 10:00 10/11/18 10:15 Corgard PO Not Given DAILY [facility] Ondansetron HCl 4 mg 10/08/18 12:11 10/11/18 09:06 Zofran IV 4 mg Q8H PRN Administration Nausea And Vomiting Ondansetron HCl 4 mg 10/10/18 16:36 10/10/18 23:28 Zofran Odt PO 4 mg Q8H PRN Administration Nausea Pantoprazole Sodium 40 mg 10/11/18 10:00 10/11/18 09:05 Protonix PO 40 mg QDAY [facility] Administration Sodium Chloride 10 ml 10/08/18 22:00 10/11/18 10:16 Sodium Chloride Flush Syringe 10 Ml IV Not Given BID DIONISIO Sodium Chloride 10 ml 10/08/18 12:11 Sodium Chloride Flush Syringe 10 Ml IV PRN PRN LINE FLUSH
[2018-10-11] MEDS ORDERED: NACL 0.9% 500 ML 500 ML ONE (13:35)
[2018-10-11] MEDS ORDERED: NACL 0.9% 500 ML IR ONE (13:35)
[2018-10-11] MEDS ORDERED: ANCEF/STERILE WATER 2 GM/20 ML 2 GM/20 ML SYRINGE IV ONE (13:35)
[2018-10-11] MEDS ORDERED: XYLOCAINE 2% INFILTRATI ONE (13:36)
[2018-10-11] MEDS: VERSED ONE ×5 (14:10→14:37)
[2018-10-11] MEDS: SUBLIMAZE ONE ×5 (14:10→14:37)
[2018-10-11] MEDS: LEVAQUIN PO SCH (14:20)
[2018-10-11] MEDS ORDERED: LEVAQUIN 500MG/100ML 500 MG/100 ML BAG IV ONE (14:32)
--- NOTE | 2018-10-11 14:51 | Progress Note ---
Assessment and Plan Assessment and plan: 68 YO Female with Obisity, HTN, DM, CAD, Atrial Fib, GERD, JOSEFINA noncompliant with CPAP admitted to urinary obstruction. Consult placed by Dr. Newsome for DM, HTN. Pt seen and evaluated in her room. Bilateral ureteral stricture with hydronephrosis, obstructive uropathy -management per urology sp cysto, rpg, rt stent, left stent could not be placed, may need left perc tube per urology HTN (hypertension) Monitor BP q shift, continue medical management. Diabetes ADA diet, insulin, accu check dvt ppx per primary team History Interval history: Complaining of pain in her back Review of systems Constitutional: No fevers, no malaise, no joint pains CVS: No chest pain, no orthopnea, no dyspnea on exertion, no pedal edema GI: No abdominal pain, no diarrhea, no vomiting, no constipation Respiratory: No shortness of breath, no wheezing, no coughing Hospitalist Physical - Physical exam Narrative exam: General.: Appears well, no distress, nontoxic HEENT: Moist mucous membranes, extraocular muscles intact, no lymphadenopathy Neck: supple Cardiac: S1-S2 heard Lungs: clear to auscultation bilaterally Abdomen: soft , nontender, nondistended, bowel sounds positive Extremities: no edema clubbing or cyanosis Skin: no rash or lesions Neurologic: no gross focal deficits Psych: calm, and cooperative - Constitutional Vitals: Temp Pulse Resp BP Pulse Ox 98.0 F 90 16 102/54 99 10/11/18 11:14 10/11/18 11:14 10/11/18 11:14 10/11/18 11:14 10/11/18 11:14 General appearance: Present: mild distress (mild right flank pain) Results - Labs CBC & Chem 7: 10/12/18 11:55 10/12/18 11:55 Labs: Laboratory Last Values WBC 5.9 K/mm3 (4.5-11.0) 10/09/18 04:18 RBC 3.13 M/mm3 (3.65-5.03) L 10/09/18 04:18 Hgb 9.5 gm/dl (10.1-14.3) L 10/09/18 04:18 Hct 29.3 % (30.3-42.9) L 10/09/18 04:18 MCV 94 fl (79-97) 10/09/18 04:18 MCH 30 pg (28-32) 10/09/18 04:18 MCHC 32 % (30-34) 10/09/18 04:18 RDW 17.0 % (13.2-15.2) H 10/09/18 04:18 Plt Count 214 K/mm3 (140-440) 10/09/18 04:18 Lymph % (Auto) 14.9 % (13.4-35.0) 10/09/18 04:18 [place] % (Auto) 13.5 % (0.0-7.3) H 10/09/18 04:18 Eos % (Auto) 1.0 % (0.0-4.3) 10/09/18 04:18 Baso % (Auto) 0.4 % (0.0-1.8) 10/09/18 04:18 Lymph # 0.9 K/mm3 (1.2-5.4) L 10/09/18 04:18 [place] # 0.8 K/mm3 (0.0-0.8) 10/09/18 04:18 Eos # 0.1 K/mm3 (0.0-0.4) 10/09/18 04:18 Baso # 0.0 K/mm3 (0.0-0.1) 10/09/18 04:18 Seg Neutrophils % 70.2 % (40.0-70.0) H 10/09/18 04:18 Seg Neutrophils # 4.2 K/mm3 (1.8-7.7) 10/09/18 04:18 Sodium 139 mmol/L (137-145) 10/10/18 09:04 Potassium 5.0 mmol/L (3.6-5.0) 10/10/18 09:04 Chloride 111.2 mmol/L (98-107) H 10/10/18 09:04 Carbon Dioxide 18 mmol/L (22-30) L 10/10/18 09:04 Anion Gap 15 mmol/L 10/10/18 09:04 BUN 22 mg/dL (7-17) H 10/10/18 09:04 Creatinine 2.6 mg/dL (0.7-1.2) H 10/10/18 09:04 Estimated GFR 22 ml/min 10/10/18 09:04 BUN/Creatinine Ratio 8 % 10/10/18 09:04 Glucose 96 mg/dL (65-100) 10/10/18 09:04 POC Glucose 72 (70-105) 10/11/18 11:20 Calcium 7.3 mg/dL (8.4-10.2) L 10/10/18 09:04
--- NOTE | 2018-10-11 14:54 | Operative Report ---
Operative Report Operative Report: EXAM: 1. Ultrasound guided access of the lower posterior calyx of the left kidney 2. Nephrostogram of the left kidney 3. Percutaneous nephrostomy tube placement of the left kidney DATE: 10/11/18 ICE PULLER: SADIA ABDULLAHI MD INDICATION: Hydronephrosis with bilateral renal calculi and right-sided renal s tent with inability to place left-sided renal stent. MEDICATIONS: Please see nursing report for full details. DEVICES: 8 [place] nephrostomy tube CONTRAST: 10 mL of nonionic contrast PROCEDURE: The risks, benefits, and alternatives were discussed with the patient; written informed consent was obtained. The patient's back was prepped and draped in a sterile fashion. The patient's puncture site was anesthetized with lidocaine. Under direct ultrasound guidance, the left lower pole posterior calyx was accessed with a 21-gauge needle. Purulent urine was aspirated. 0.018 inch wire was passed into the collecting system. Needle was exchanged for a 6 [place] Accu stick system. 6 [place] Accustick system was advanced over the wire and passed into the collecting system. Wire, inner dilator and cannula were removed. Gentle contrast was injecting confirming position. 0.035 inch Amplatz wire was advanced through the transitional dilator of the AccuStick system and the dilator was removed. 8 [place] nephrostomy tube was advanced over the wire. Wire was removed. [place] loop was performed in the renal pelvis. At this point, copious amounts of purulent urine were removed. After no more purulence was identified, nephrostogram was performed. Nephrostogram was performed demonstrating left-sided hydronephrosis and hydroureter with obstructing ureteral calculi. Contrast was aspirated. The nephrostomy tube was sutured in place with Ethilon. Sterile dressing applied. Patient tolerated the procedure well. She was transferred to the floor in stable condition. FINDINGS: Please see procedure note above. IMPRESSION: 1. Successful nephrostogram of the left kidney demonstrating pyonephrosis and pyoureter with obstructing proximal renal calculi. No ureteral stent was placed due to pyonephrosis. 2. Percutaneous nephrostomy tube placement in the lower posterior calyx of the left kidney.
[2018-10-11] MEDS ORDERED: LANTUS SUB-Q PRN (16:35)
[2018-10-12] MEDS: ROCEPHIN/NS 1 GM/50 ML 1 GM/50 ML BAG IV SCH ×2 (00:52→09:19)
[2018-10-12] MEDS: SODIUM CHLORIDE FLUSH SYRINGE 10 ML IV SCH ×3 (01:07→22:02)
[2018-10-12] MEDS: MORPHINE IV PRN ×2 (05:09→09:19)
[2018-10-12] MEDS: ZOFRAN IV PRN ×2 (05:12→13:13)
[2018-10-12] MEDS: XANAX PO SCH ×3 (09:19→22:01)
[2018-10-12] MEDS: PROTONIX PO SCH (09:20)
[2018-10-12] MEDS: CORGARD PO SCH (09:29)
[2018-10-12] MEDS: NORVASC PO SCH (09:29)
[2018-10-12] MEDS: PLAVIX PO SCH (09:29)
[2018-10-12 12:26] LABS: Basophils % (Auto) 0.2 % (0.0-1.8); Eosinophils # (Auto) 0.1 K/mm3 (0.0-0.4); Eosinophils % (Auto) 1.2 % (0.0-4.3); Hematocrit 29.7 % (30.3-42.9); Hemoglobin 9.4 gm/dl (10.1-14.3); Lymphocytes # (Auto) 1.4 K/mm3 (1.2-5.4); Lymphocytes % (Auto) 17.3 % (13.4-35.0); Mean Corpuscular HGB Conc 32 % (30-34); Mean Corpuscular Volume 96 fl (79-97); Monocytes # (Auto) 0.9 K/mm3 (0.0-0.8); Monocytes % (Auto) 10.9 % (0.0-7.3); Platelet Count 268 K/mm3 (140-440); Red Blood Count 3.11 M/mm3 (3.65-5.03); Red Cell Distribution Width 16.9 % (13.2-15.2)
--- NOTE | 2018-10-12 12:29 | Progress Note ---
Assessment and Plan Assessment and plan: 68 YO Female with Obisity, HTN, DM, CAD, Atrial Fib, GERD, JOSEFINA noncompliant with CPAP admitted to urinary obstruction. Consult placed by Dr. Newsome for DM, HTN. Pt seen and evaluated in her room. Bilateral ureteral stricture with hydronephrosis, obstructive uropathy -management per urology sp cysto, rpg, rt stent, left stent could not be placed, may need left perc tube per urology, IR has been consulted to place it HTN (hypertension) Monitor BP q shift, continue medical management. Diabetes ADA diet, insulin, accu check dvt ppx per primary team History Interval history: Complaining of pain in her back Review of systems Constitutional: No fevers, no malaise, no joint pains CVS: No chest pain, no orthopnea, no dyspnea on exertion, no pedal edema GI: No abdominal pain, no diarrhea, no vomiting, no constipation Respiratory: No shortness of breath, no wheezing, no coughing Hospitalist Physical - Physical exam Narrative exam: General.: Appears well, no distress, nontoxic HEENT: Moist mucous membranes, extraocular muscles intact, no lymphadenopathy Neck: supple Cardiac: S1-S2 heard Lungs: clear to auscultation bilaterally Abdomen: soft , nontender, nondistended, bowel sounds positive Extremities: no edema clubbing or cyanosis Skin: no rash or lesions Neurologic: no gross focal deficits Psych: calm, and cooperative - Constitutional Vitals: Temp Pulse Resp BP Pulse Ox 98.3 F 80 18 100/69 98 10/12/18 11:31 10/12/18 11:31 10/12/18 11:31 10/12/18 11:31 10/12/18 11:31 General appearance: Present: mild distress (mild right flank pain) Results - Labs CBC & Chem 7: 10/12/18 11:55 10/12/18 11:55 Labs: Laboratory Last Values WBC 8.1 K/mm3 (4.5-11.0) 10/12/18 11:55 RBC 3.11 M/mm3 (3.65-5.03) L 10/12/18 11:55 Hgb 9.4 gm/dl (10.1-14.3) L 10/12/18 11:55 Hct 29.7 % (30.3-42.9) L 10/12/18 11:55 MCV 96 fl (79-97) 10/12/18 11:55 MCH 30 pg (28-32) 10/12/18 11:55 MCHC 32 % (30-34) 10/12/18 11:55 RDW 16.9 % (13.2-15.2) H 10/12/18 11:55 Plt Count 268 K/mm3 (140-440) 10/12/18 11:55 Lymph % (Auto) 17.3 % (13.4-35.0) 10/12/18 11:55 [place] % (Auto) 10.9 % (0.0-7.3) H 10/12/18 11:55 Eos % (Auto) 1.2 % (0.0-4.3) 10/12/18 11:55 Baso % (Auto) 0.2 % (0.0-1.8) 10/12/18 11:55 Lymph # 1.4 K/mm3 (1.2-5.4) 10/12/18 11:55 [place] # 0.9 K/mm3 (0.0-0.8) H 10/12/18 11:55 Eos # 0.1 K/mm3 (0.0-0.4) 10/12/18 11:55 Baso # 0.0 K/mm3 (0.0-0.1) 10/12/18 11:55 Seg Neutrophils % 70.4 % (40.0-70.0) H 10/12/18 11:55 Seg Neutrophils # 5.7 K/mm3 (1.8-7.7) 10/12/18 11:55 Sodium 139 mmol/L (137-145) 10/10/18 09:04 Potassium 5.0 mmol/L (3.6-5.0) 10/10/18 09:04 Chloride 111.2 mmol/L (98-107) H 10/10/18 09:04 Carbon Dioxide 18 mmol/L (22-30) L 10/10/18 09:04 Anion Gap 15 mmol/L 10/10/18 09:04 BUN 22 mg/dL (7-17) H 10/10/18 09:04 Creatinine 2.6 mg/dL (0.7-1.2) H 10/10/18 09:04 Estimated GFR 22 ml/min 10/10/18 09:04 BUN/Creatinine Ratio 8 % 10/10/18 09:04 Glucose 96 mg/dL (65-100) 10/10/18 09:04 POC Glucose 85 (70-105) 10/12/18 11:26 Calcium 7.3 mg/dL (8.4-10.2) L 10/10/18 09:04
--- NOTE | 2018-10-12 12:43 | Progress Note ---
Subjective Date of service: 10/12/18 Principal diagnosis: hydro Interval history: s/p rt stent attemped left Dr. Naik saw for perc +/- stent (left) 09-30-18 (pus) kidney fx better will need stent at some point Objective - Constitutional Vitals: Vital Signs - 12hr 10/12/18 10/12/18 10/12/18 00:48 00:52 04:17 Temperature 97.6 F 98.3 F Pulse Rate 91 H 91 H Respiratory 18 18 Rate Blood Pressure 102/61 74/40 Blood Pressure [Left] O2 Sat by Pulse 100 97 Oximetry 10/12/18 10/12/18 10/12/18 04:18 04:34 07:38 Temperature 98.2 F 98.2 F Pulse Rate 91 H 68 86 Respiratory 16 18 Rate Blood Pressure 103/54 Blood Pressure 97/54 [Left] O2 Sat by Pulse 97 97 96 Oximetry 10/12/18 10/12/18 10/12/18 09:19 09:29 09:49 Temperature Pulse Rate 86 Respiratory 18 18 Rate Blood Pressure 103/54 Blood Pressure [Left] O2 Sat by Pulse Oximetry 10/12/18 11:31 Temperature 98.3 F Pulse Rate 80 Respiratory 18 Rate Blood Pressure Blood Pressure 100/69 [Left] O2 Sat by Pulse 98 Oximetry - Labs CBC & Chem 7: 10/12/18 11:55 10/10/18 09:04 Labs: Abnormal lab results 10/12/18 Range/Units 11:55 RBC 3.11 L (3.65-5.03) M/mm3 Hgb 9.4 L (10.1-14.3) gm/dl Hct 29.7 L (30.3-42.9) % RDW 16.9 H (13.2-15.2) % [place] % (Auto) 10.9 H (0.0-7.3) % [place] # 0.9 H (0.0-0.8) K/mm3 Seg Neutrophils % 70.4 H (40.0-70.0) % Medications & Allergies - Medications Allergies/Adverse Reactions: Allergies Sulfa (Sulfonamide Antibiotics) Allergy (Verified 09/03/18 11:09) Itching, VOMITING hydromorphone HCl [From Dilaudid] Adverse Reaction (Verified 09/14/18 14:07) HALLUCINATIONS,confusion oxycodone [From Percocet] Adverse Reaction (Verified 09/03/18 11:09) Itching BANDAIDS Adverse Reaction (Uncoded 09/03/18 11:09) SKIN IRRITATION Home Medications: Home Medications Medication Instructions Recorded Confirmed Last Taken Type Nadolol [Corgard] 40 mg PO DAILY tablet 12/10/15 10/10/18 10/08/18 10:00 Rx Mirabegron [Myrbetriq] 50 mg PO QDAY 09/19/16 10/10/18 10/08/18 History Insulin Detemir [Levemir Flextouch] 1 unit SQ QHS PRN 01/28/17 10/10/18 06/22/18 History Pantoprazole [Protonix] 40 mg PO QDAY 01/28/17 10/10/18 10/08/18 10:00 History ALPRAZolam [Xanax TAB] 1 mg PO TID 06/29/17 10/10/18 09/21/18 History Clopidogrel Bisulfate [Plavix] 75 mg PO DAILY 06/29/17 10/10/18 7 Days Ago History ~09/15/18 Potassium Citrate (Nf) [Urocit K 5] 10 meq PO BID 06/29/17 10/10/18 10/08/18 History AtorvaSTATin [Lipitor] 20 mg PO QHS 04/16/18 10/10/18 09/21/18 History Ferrous Sulfate [Iron] 325 mg PO DAILY 04/16/18 10/10/18 10/08/18 History HYDROcodone/ACETAMINOPHEN [Prim 1 each PO PRN PRN 04/16/18 10/10/18 10/08/18 History 10-325 Tablet] Ondansetron [Zofran TAB] 4 mg PO Q8HR PRN 04/16/18 10/10/18 10/08/18 History amLODIPine [Norvasc] 5 mg PO DAILY 04/16/18 10/10/18 10/08/18 10:00 History Active Medications: Generic Name Dose Route Start Last Admin Trade Name Freq PRN Reason Stop Dose Admin Acetaminophen/Hydrocodone Bitart 1 each 10/08/18 21:43 10/10/18 23:29 Prim 10/325 PO 1 each Q4H PRN Administration Pain, Moderate (4-6) Acetaminophen/Hydrocodone [place] 1 each 10/10/18 16:36 10/12/18 01:02 Prim 10/325 PO 1 each Q6H PRN Administration Pain , Severe (7-10) Alprazolam 1 mg 10/10/18 20:00 10/12/18 09:19 Xanax PO 1 mg TID DIONISIO Administration Amlodipine Besylate 5 mg 10/11/18 10:00 10/12/18 09:29 Norvasc PO Not Given DAILY [facility] Atorvastatin Calcium 20 mg 10/10/18 22:00 10/11/18 22:04 Lipitor PO 20 mg QHS DIONISIO Administration Clopidogrel Bisulfate 75 mg 10/11/18 10:00 10/12/18 09:29 Plavix PO Not Given DAILY [facility] Dextrose 50 ml 10/08/18 15:11 D50w (25gm) Syringe IV PRN PRN Hypoglycemia Ferrous Sulfate 325 mg 10/11/18 10:00 10/11/18 10:15 Feosol PO Not Given DAILY [facility] Sodium Chloride 1,000 mls @ 100 mls/hr 10/08/18 15:00 10/11/18 21:30 Nacl 0.45% 1000 Ml IV Infused DIRECT DIONISIO Infusion Ceftriaxone Sodium 1 gm in 50 mls @ 100 mls/hr 10/11/18 14:00 10/12/18 09:19 Rocephin/Ns 1 Gm/50 Ml IV 100 mls/hr Q24HR DIONISIO Administration Miscellaneous Medication 50 mg 10/11/18 10:00 Mirabegron [Myrbetriq] PO QDAY [facility] Miscellaneous Medication 10 meq 10/10/18 22:00 Potassium Citrate (Nf) PO BID [facility] Morphine Sulfate 2 mg 10/08/18 21:44 10/12/18 09:19 Morphine IV 2 mg Q4H PRN Administration Pain, Moderate (4-6) Nadolol 40 mg 10/11/18 10:00 10/12/18 09:29 Corgard PO Not Given DAILY [facility] Ondansetron HCl 4 mg 10/08/18 12:11 10/12/18 05:12 Zofran IV 4 mg Q8H PRN Administration Nausea And Vomiting Ondansetron HCl 4 mg 10/10/18 16:36 10/10/18 23:28 Zofran Odt PO 4 mg Q8H PRN Administration Nausea Pantoprazole Sodium 40 mg 10/11/18 10:00 10/12/18 09:20 Protonix PO 40 mg QDAY DIONISIO Administration Sodium Chloride 10 ml 10/08/18 22:00 10/12/18 09:23 Sodium Chloride Flush Syringe 10 Ml IV 10 ml BID DIONISIO Administration Sodium Chloride 10 ml 10/08/18 12:11 Sodium Chloride Flush Syringe 10 Ml IV PRN PRN LINE FLUSH
[2018-10-12 12:47] LABS: Calcium 7.9 mg/dL (8.4-10.2)
[2018-10-12] MEDS: FEOSOL PO SCH (13:13)
[2018-10-12] MEDS: NORCO 10/325 PO PRN ×2 (13:13→22:01)
[2018-10-12] MEDS: ZOFRAN ODT PO PRN (22:09)
[2018-10-13] MEDS: XANAX PO SCH ×3 (09:16→22:09)
[2018-10-13] MEDS: PLAVIX PO SCH (09:16)
[2018-10-13] MEDS: MORPHINE IV PRN ×3 (09:16→22:10)
[2018-10-13] MEDS: ZOFRAN IV PRN (09:16)
[2018-10-13] MEDS: PROTONIX PO SCH (09:16)
[2018-10-13] MEDS: SODIUM CHLORIDE FLUSH SYRINGE 10 ML IV SCH (09:27)
[2018-10-13] MEDS: ROCEPHIN/NS 1 GM/50 ML 1 GM/50 ML BAG IV SCH (09:28)
[2018-10-13] MEDS: NORVASC PO SCH (10:00)
[2018-10-13] MEDS: CORGARD PO SCH (10:51)
[2018-10-13] MEDS: FEOSOL PO SCH (12:05)
--- NOTE | 2018-10-13 14:29 | Progress Note ---
Subjective Date of service: 10/13/18 Principal diagnosis: hydro Interval history: s/p rt stent attemped left still with left flank pain Dr. Naik saw for perc +/- stent (left) 09-30-18 (pus) kidney fx better cult + E.Coli---sensitivity pending will need stent at some point re eval in am (office cult with reisstance-----augmentin works) Objective - Constitutional Vitals: Vital Signs - 12hr 10/13/18 10/13/18 10/13/18 04:55 07:40 09:00 Temperature 98.7 F 98.0 F Pulse Rate 86 83 96 H Respiratory 16 20 18 Rate Blood Pressure 99/52 Blood Pressure 76/42 135/67 [Left] O2 Sat by Pulse 94 97 99 Oximetry 10/13/18 10/13/18 11:34 13:45 Temperature 98.1 F Pulse Rate 87 92 H Respiratory 20 Rate Blood Pressure Blood Pressure 94/56 119/64 [Left] O2 Sat by Pulse 95 Oximetry - Labs CBC & Chem 7: 10/12/18 11:55 10/12/18 11:55 Medications & Allergies - Medications Allergies/Adverse Reactions: Allergies Sulfa (Sulfonamide Antibiotics) Allergy (Verified 09/03/18 11:09) Itching, VOMITING hydromorphone HCl [From Dilaudid] Adverse Reaction (Verified 09/14/18 14:07) HALLUCINATIONS,confusion oxycodone [From Percocet] Adverse Reaction (Verified 09/03/18 11:09) Itching BANDAIDS Adverse Reaction (Uncoded 09/03/18 11:09) SKIN IRRITATION Home Medications: Home Medications Medication Instructions Recorded Confirmed Last Taken Type Nadolol [Corgard] 40 mg PO DAILY tablet 12/10/15 10/10/18 10/08/18 10:00 Rx Mirabegron [Myrbetriq] 50 mg PO QDAY 09/19/16 10/10/18 10/08/18 History Insulin Detemir [Levemir Flextouch] 1 unit SQ QHS PRN 01/28/17 10/10/18 06/22/18 History Pantoprazole [Protonix] 40 mg PO QDAY 01/28/17 10/10/18 10/08/18 10:00 History ALPRAZolam [Xanax TAB] 1 mg PO TID 06/29/17 10/10/18 09/21/18 History Clopidogrel Bisulfate [Plavix] 75 mg PO DAILY 06/29/17 10/10/18 7 Days Ago History ~09/15/18 Potassium Citrate (Nf) [Urocit K 5] 10 meq PO BID 06/29/17 10/10/18 10/08/18 His tory AtorvaSTATin [Lipitor] 20 mg PO QHS 04/16/18 10/10/18 09/21/18 History Ferrous Sulfate [Iron] 325 mg PO DAILY 04/16/18 10/10/18 10/08/18 History HYDROcodone/ACETAMINOPHEN [[place] 1 each PO PRN PRN 04/16/18 10/10/18 10/08/18 History 10-325 Tablet] Ondansetron [Zofran TAB] 4 mg PO Q8HR PRN 04/16/18 10/10/18 10/08/18 History amLODIPine [Norvasc] 5 mg PO DAILY 04/16/18 10/10/18 10/08/18 10:00 History Active Medications: Generic Name Dose Route Start Last Admin Trade Name Freq PRN Reason Stop Dose Admin Acetaminophen/Hydrocodone Bitart 1 each 10/08/18 21:43 10/12/18 22:01 [place] 10/325 PO 1 each Q4H PRN Administration Pain, Moderate (4-6) Acetaminophen/Hydrocodone Bitart 1 each 10/10/18 16:36 10/12/18 01:02 [place] 10/325 PO 1 each Q6H PRN Administration Pain , Severe (7-10) Alprazolam 1 mg 10/10/18 20:00 10/13/18 09:16 Xanax PO 1 mg TID DIONISIO Administration Amlodipine Besylate 5 mg 10/11/18 10:00 10/12/18 09:29 Norvasc PO Not Given DAILY DIONISIO Atorvastatin Calcium 20 mg 10/10/18 22:00 10/12/18 22:01 Lipitor PO 20 mg QHS DIONISIO Administration Clopidogrel Bisulfate 75 mg 10/11/18 10:00 10/13/18 09:16 Plavix PO 75 mg DAILY DIONISIO Administration Dextrose 50 ml 10/08/18 15:11 D50w (25gm) Syringe IV PRN PRN Hypoglycemia Ferrous Sulfate 325 mg 10/11/18 10:00 10/12/18 13:13 Feosol PO 325 mg DAILY DIONISIO Administration Sodium Chloride 1,000 mls @ 100 mls/hr 10/08/18 15:00 10/11/18 21:30 Nacl 0.45% 1000 Ml IV Infused DIRECT DIONISIO Infusion Ceftriaxone Sodium 1 gm in 50 mls @ 100 mls/hr 10/11/18 14:00 10/13/18 09:28 Rocephin/Ns 1 Gm/50 Ml IV 100 mls/hr Q24HR DIONISIO Administration Miscellaneous Medication 50 mg 10/11/18 10:00 Mirabegron [Myrbetriq] PO QDAY DIONISIO Miscellaneous Medication 10 meq 10/10/18 22:00 Potassium Citrate (Nf) PO BID [facility] Morphine Sulfate 2 mg 10/08/18 21:44 10/13/18 13:57 Morphine IV 2 mg Q4H PRN Administration Pain, Moderate (4-6) Nadolol 40 mg 10/11/18 10:00 10/12/18 09:29 Corgard PO Not Given DAILY DIONISIO Ondansetron HCl 4 mg 10/08/18 12:11 10/13/18 09:16 Zofran IV 4 mg Q8H PRN Administration Nausea And Vomiting Ondansetron HCl 4 mg 10/10/18 16:36 10/12/18 22:09 Zofran Odt PO 4 mg Q8H PRN Administration Nausea Pantoprazole Sodium 40 mg 10/11/18 10:00 10/13/18 09:16 Protonix PO 40 mg QDAY DIONISIO Administration Sodium Chloride 10 ml 10/08/18 22:00 10/13/18 09:27 Sodium Chloride Flush Syringe 10 Ml IV 10 ml BID DIONISIO Administration Sodium Chloride 10 ml 10/08/18 12:11 Sodium Chloride Flush Syringe 10 Ml IV PRN PRN LINE FLUSH
[2018-10-13] MEDS: NORCO 10/325 PO PRN (18:44)
--- NOTE | 2018-10-13 23:53 | Progress Note ---
Assessment and Plan Assessment and plan: 68 YO Female with Obisity, HTN, DM, CAD, Atrial Fib, GERD, JOSEFINA noncompliant with CPAP admitted to urinary obstruction. Consult placed by Dr. Newsome for DM, HTN. Pt seen and evaluated in her room. Bilateral ureteral stricture with hydronephrosis, obstructive uropathy -management per urology sp cysto, rpg, rt stent, left stent could not be placed, sp Left perc on 10/11- obstruction due to stone noted, and purulent fluid sent for culture Pyonepthritis, pyoureter cont abx, fup urine cx HTN (hypertension) Monitor BP q shift, continue medical management. JULIANA to to acute tubular stasis, has chronic CKD stage 3 improved after stent and perc placement Diabetes ADA diet, insulin, accu check dvt ppx per primary team History Interval history: Complaining of pain in her back Review of systems Constitutional: No fevers, no malaise, no joint pains CVS: No chest pain, no orthopnea, no dyspnea on exertion, no pedal edema GI: No abdominal pain, no diarrhea, no vomiting, no constipation Respiratory: No shortness of breath, no wheezing, no coughing Hospitalist Physical - Physical exam Narrative exam: General.: Appears well, no distress, nontoxic HEENT: Moist mucous membranes, extraocular muscles intact, no lymphadenopathy Neck: supple Cardiac: S1-S2 heard Lungs: clear to auscultation bilaterally Abdomen: soft , nontender, nondistended, bowel sounds positive Extremities: no edema clubbing or cyanosis Skin: no rash or lesions Neurologic: no gross focal deficits Psych: calm, and cooperative - Constitutional Vitals: Temp Pulse Resp BP Pulse Ox 98.6 F 90 20 112/56 96 10/13/18 19:54 10/13/18 19:54 10/13/18 19:54 10/13/18 19:54 10/13/18 19:54 General appearance: Present: mild distress (mild right flank pain) Results - Labs CBC & Chem 7: 10/12/18 11:55 10/12/18 11:55 Labs: Laboratory Last Values WBC 8.1 K/mm3 (4.5-11.0) 10/12/18 11:55 RBC 3.11 M/mm3 (3.65-5.03) L 10/12/18 11:55 Hgb 9.4 gm/dl (10.1-14.3) L 10/12/18 11:55 Hct 29.7 % (30.3-42.9) L 10/12/18 11:55 MCV 96 fl (79-97) 10/12/18 11:55 MCH 30 pg (28-32) 10/12/18 11:55 MCHC 32 % (30-34) 10/12/18 11:55 RDW 16.9 % (13.2-15.2) H 10/12/18 11:55 Plt Count 268 K/mm3 (140-440) 10/12/18 11:55 Lymph % (Auto) 17.3 % (13.4-35.0) 10/12/18 11:55 [place] % (Auto) 10.9 % (0.0-7.3) H 10/12/18 11:55 Eos % (Auto) 1.2 % (0.0-4.3) 10/12/18 11:55 Baso % (Auto) 0.2 % (0.0-1.8) 10/12/18 11:55 Lymph # 1.4 K/mm3 (1.2-5.4) 10/12/18 11:55 [place] # 0.9 K/mm3 (0.0-0.8) H 10/12/18 11:55 Eos # 0.1 K/mm3 (0.0-0.4) 10/12/18 11:55 Baso # 0.0 K/mm3 (0.0-0.1) 10/12/18 11:55 Seg Neutrophils % 70.4 % (40.0-70.0) H 10/12/18 11:55 Seg Neutrophils # 5.7 K/mm3 (1.8-7.7) 10/12/18 11:55 Sodium 135 mmol/L (137-145) L 10/12/18 11:55 Potassium 4.7 mmol/L (3.6-5.0) 10/12/18 11:55 Chloride 107.7 mmol/L (98-107) H 10/12/18 11:55 Carbon Dioxide 16 mmol/L (22-30) L 10/12/18 11:55 Anion Gap 16 mmol/L 10/12/18 11:55 BUN 20 mg/dL (7-17) H 10/12/18 11:55 Creatinine 2.9 mg/dL (0.7-1.2) H 10/12/18 11:55 Estimated GFR 20 ml/min 10/12/18 11:55 BUN/Creatinine Ratio 7 % 10/12/18 11:55 Glucose 87 mg/dL (65-100) 10/12/18 11:55 POC Glucose 135 (70-105) H 10/13/18 22:04 Calcium 7.9 mg/dL (8.4-10.2) L 10/12/18 11:55
[2018-10-14] MEDS: NACL 0.45% 1000 ML 1,000 ML IV SCH ×2 (01:10→09:14)
[2018-10-14] MEDS: NORCO 10/325 PO PRN ×2 (01:11→11:36)
[2018-10-14] MEDS: ZOFRAN IV PRN (01:11)
[2018-10-14] MEDS: SODIUM CHLORIDE FLUSH SYRINGE 10 ML IV SCH (03:04)
[2018-10-14] MEDS: ROCEPHIN/NS 1 GM/50 ML 1 GM/50 ML BAG IV SCH (09:15)
[2018-10-14] MEDS: PROTONIX PO SCH (09:20)
[2018-10-14] MEDS: FEOSOL PO SCH (09:21)
[2018-10-14] MEDS: PLAVIX PO SCH (09:21)
[2018-10-14] MEDS: XANAX PO SCH ×2 (09:21→14:00)
[2018-10-14] MEDS: NORVASC PO SCH (10:00)
[2018-10-14] MEDS: CORGARD PO SCH (10:00)
--- NOTE | 2018-10-14 10:35 | Progress Note ---
Assessment and Plan Assessment and plan: 68 YO Female with Obisity, HTN, DM, CAD, Atrial Fib, GERD, JOSEFINA noncompliant with CPAP admitted to urinary obstruction. Consult placed by Dr. Newsome for DM, HTN. Pt seen and evaluated in her room. Bilateral ureteral stricture with hydronephrosis, obstructive uropathy -management per urology sp cysto, rpg, rt stent, left stent could not be placed, sp Left perc on 10/11- obstruction due to stone noted, and purulent fluid sent for culture Pyonepthritis, pyoureter, UTI continue rocephin, urine cx grew E coli sens to rocephin, needs 7 days of IV abx after perc which was on 10/11, can be switched to oral abx at time of dc HTN (hypertension) Monitor BP q shift, continue medical management. JULIANA to to acute tubular stasis, has chronic CKD stage 3 improved after stent and perc placement Diabetes ADA diet, insulin, accu check dvt ppx per primary team Patient is medically optimized for discharge. I have recommended 7 days of antibiotics, prescription has input in charts History Interval history: back pain is improved Review of systems Constitutional: No fevers, no malaise, no joint pains CVS: No chest pain, no orthopnea, no dyspnea on exertion, no pedal edema GI: No abdominal pain, no diarrhea, no vomiting, no constipation Respiratory: No shortness of breath, no wheezing, no coughing Hospitalist Physical - Physical exam Narrative exam: General.: Appears well, no distress, nontoxic HEENT: Moist mucous membranes, extraocular muscles intact, no lymphadenopathy Neck: supple Cardiac: S1-S2 heard Lungs: clear to auscultation bilaterally Abdomen: soft , nontender, nondistended, bowel sounds positive Extremities: no edema clubbing or cyanosis Skin: no rash or lesions Neurologic: no gross focal deficits, pleasantly demented Psych: calm, and cooperative - Constitutional Vitals: Temp Pulse Resp BP Pulse Ox 97.7 F 81 18 99/59 99 10/14/18 07:22 10/14/18 07:23 10/14/18 07:22 10/14/18 07:22 10/14/18 07:23 General appearance: Present: mild distress (mild right flank pain) Results - Labs CBC & Chem 7: 10/14/18 10:51 10/14/18 10:51 Labs: Laboratory Last Values WBC 8.1 K/mm3 (4.5-11.0) 10/12/18 11:55 RBC 3.11 M/mm3 (3.65-5.03) L 10/12/18 11:55 Hgb 9.4 gm/dl (10.1-14.3) L 10/12/18 11:55 Hct 29.7 % (30.3-42.9) L 10/12/18 11:55 MCV 96 fl (79-97) 10/12/18 11:55 MCH 30 pg (28-32) 10/12/18 11:55 MCHC 32 % (30-34) 10/12/18 11:55 RDW 16.9 % (13.2-15.2) H 10/12/18 11:55 Plt Count 268 K/mm3 (140-440) 10/12/18 11:55 Lymph % (Auto) 17.3 % (13.4-35.0) 10/12/18 11:55 [place] % (Auto) 10.9 % (0.0-7.3) H 10/12/18 11:55 Eos % (Auto) 1.2 % (0.0-4.3) 10/12/18 11:55 Baso % (Auto) 0.2 % (0.0-1.8) 10/12/18 11:55 Lymph # 1.4 K/mm3 (1.2-5.4) 10/12/18 11:55 [place] # 0.9 K/mm3 (0.0-0.8) H 10/12/18 11:55 Eos # 0.1 K/mm3 (0.0-0.4) 10/12/18 11:55 Baso # 0.0 K/mm3 (0.0-0.1) 10/12/18 11:55 Seg Neutrophils % 70.4 % (40.0-70.0) H 10/12/18 11:55 Seg Neutrophils # 5.7 K/mm3 (1.8-7.7) 10/12/18 11:55 Sodium 135 mmol/L (137-145) L 10/12/18 11:55 Potassium 4.7 mmol/L (3.6-5.0) 10/12/18 11:55 Chloride 107.7 mmol/L (98-107) H 10/12/18 11:55 Carbon Dioxide 16 mmol/L (22-30) L 10/12/18 11:55 Anion Gap 16 mmol/L 10/12/18 11:55 BUN 20 mg/dL (7-17) H 10/12/18 11:55 Creatinine 2.9 mg/dL (0.7-1.2) H 10/12/18 11:55 Estimated GFR 20 ml/min 10/12/18 11:55 BUN/Creatinine Ratio 7 % 10/12/18 11:55 Glucose 87 mg/dL (65-100) 10/12/18 11:55 POC Glucose 83 (70-105) 10/14/18 05:13 Calcium 7.9 mg/dL (8.4-10.2) L 10/12/18 11:55
[2018-10-14 11:36] LABS: Basophils % (Auto) 0.4 % (0.0-1.8); Eosinophils # (Auto) 0.2 K/mm3 (0.0-0.4); Eosinophils % (Auto) 2.3 % (0.0-4.3); Hematocrit 31.4 % (30.3-42.9); Hemoglobin 10.3 gm/dl (10.1-14.3); Lymphocytes # (Auto) 1.5 K/mm3 (1.2-5.4); Mean Corpuscular HGB Conc 33 % (30-34); Mean Corpuscular Volume 96 fl (79-97); Monocytes # (Auto) 0.9 K/mm3 (0.0-0.8); Monocytes % (Auto) 11.4 % (0.0-7.3); Platelet Count 284 K/mm3 (140-440); Red Blood Count 3.28 M/mm3 (3.65-5.03); Red Cell Distribution Width 17.6 % (13.2-15.2)
[2018-10-14 12:13] LABS: Calcium 8.2 mg/dL (8.4-10.2)
--- NOTE | 2018-10-14 12:54 | Progress Note ---
Assessment and Plan up in chair will d/c [facility] with Jacques NT when ok with medicine Subjective Date of service: 10/14/18 Principal diagnosis: hydro Objective - Constitutional Vitals: Vital Signs - 12hr 10/14/18 10/14/18 10/14/18 05:18 07:22 07:23 Temperature 97.4 F L 97.7 F Pulse Rate 82 78 81 Respiratory 17 18 Rate Blood Pressure 99/59 Blood Pressure 122/60 [Left] O2 Sat by Pulse 99 97 99 Oximetry General appearance: Present: no acute distress - Neck Neck: supple - Respiratory Respiratory effort: normal - Gastrointestinal General gastrointestinal: Present: soft, non-tender - Labs CBC & Chem 7: 10/14/18 10:51 10/14/18 10:51 Labs: Abnormal lab results 10/13/18 10/13/18 10/14/18 Range/Units 16:49 22:04 10:51 RBC 3.28 L (3.65-5.03) M/mm3 RDW 17.6 H (13.2-15.2) % [place] % (Auto) 11.4 H (0.0-7.3) % [place] # 0.9 H (0.0-0.8) K/mm3 Sodium (137-145) mmol/L Chloride (98-107) mmol/L Carbon Dioxide (22-30) mmol/L BUN (7-17) mg/dL Creatinine (0.7-1.2) mg/dL Glucose (65-100) mg/dL POC Glucose 67 L 135 H (70-105) Calcium (8.4-10.2) mg/dL 10/14/18 Range/Units 10:51 RBC (3.65-5.03) M/mm3 RDW (13.2-15.2) % [place] % (Auto) (0.0-7.3) % [place] # (0.0-0.8) K/mm3 Sodium 136 L (137-145) mmol/L Chloride 109.0 H (98-107) mmol/L Carbon Dioxide 13 L (22-30) mmol/L BUN 22 H (7-17) mg/dL Creatinine 2.9 H (0.7-1.2) mg/dL Glucose 110 H (65-100) mg/dL POC Glucose (70-105) Calcium 8.2 L (8.4-10.2) mg/dL Medications & Allergies - Medications Allergies/Adverse Reactions: Allergies Sulfa (Sulfonamide Antibiotics) Allergy (Verified 09/03/18 11:09) Itching, VOMITING hydromorphone HCl [From Dilaudid] Adverse Reaction (Verified 09/14/18 14:07) HALLUCINATIONS,confusion oxycodone [From Percocet] Adverse Reaction (Verified 09/03/18 11:09) Itching BANDAIDS Adverse Reaction (Uncoded 09/03/18 11:09) SKIN IRRITATION Home Medications: Home Medications Medication Instructions Recorded Confirmed Last Taken Type Nadolol [Corgard] 40 mg PO DAILY tablet 12/10/15 10/10/18 10/08/18 10:00 Rx Mirabegron [Myrbetriq] 50 mg PO QDAY 09/19/16 10/10/18 10/08/18 History Insulin Detemir [Levemir Flextouch] 1 unit SQ QHS PRN 01/28/17 10/10/18 06/22/18 History Pantoprazole [Protonix] 40 mg PO QDAY 01/28/17 10/10/18 10/08/18 10:00 History ALPRAZolam [Xanax TAB] 1 mg PO TID 06/29/17 10/10/18 09/21/18 History Clopidogrel Bisulfate [Plavix] 75 mg PO DAILY 06/29/17 10/10/18 7 Days Ago History ~09/15/18 Potassium Citrate (Nf) [Urocit K 5] 10 meq PO BID 06/29/17 10/10/18 10/08/18 History AtorvaSTATin [Lipitor] 20 mg PO QHS 04/16/18 10/10/18 09/21/18 History Ferrous Sulfate [Iron] 325 mg PO DAILY 04/16/18 10/10/18 10/08/18 History HYDROcodone/ACETAMINOPHEN [[place] 1 each PO PRN PRN 04/16/18 10/10/18 10/08/18 History 10-325 Tablet] Ondansetron [Zofran TAB] 4 mg PO Q8HR PRN 04/16/18 10/10/18 10/08/18 History amLODIPine [Norvasc] 5 mg PO DAILY 04/16/18 10/10/18 10/08/18 10:00 History Active Medications: Generic Name Dose Route Start Last Admin Trade Name Freq PRN Reason Stop Dose Admin Acetaminophen/Hydrocodone Bitart 1 each 10/08/18 21:43 10/14/18 11:36 [place] 10/325 PO 1 each Q4H PRN Administration Pain, Moderate (4-6) Acetaminophen/Hydrocodone Bitart 1 each 10/10/18 16:36 10/12/18 01:02 [place] 10/325 PO 1 each Q6H PRN Administration Pain , Severe (7-10) Alprazolam 1 mg 10/10/18 20:00 10/14/18 09:21 Xanax PO 1 mg TID DIONISIO Administration Amlodipine Besylate 5 mg 10/11/18 10:00 10/13/18 10:00 Norvasc PO Not Given DAILY DIONISIO Atorvastatin Calcium 20 mg 10/10/18 22:00 10/13/18 22:10 Lipitor PO 20 mg QHS DIONISIO Administration Clopidogrel Bisulfate 75 mg 10/11/18 10:00 10/14/18 09:21 Plavix PO 75 mg DAILY DIONISIO Administration Dextrose 50 ml 10/08/18 15:11 D50w (25gm) Syringe IV PRN PRN Hypoglycemia Ferrous Sulfate 325 mg 10/11/18 10:00 10/14/18 09:21 Feosol PO 325 mg DAILY DIONISIO Administration Sodium Chloride 1,000 mls @ 100 mls/hr 10/08/18 15:00 10/14/18 09:14 Nacl 0.45% 1000 Ml IV 100 mls/hr DIRECT DIONISIO Administration Ceftriaxone Sodium 1 gm in 50 mls @ 100 mls/hr 10/11/18 14:00 10/14/18 09:15 Rocephin/Ns 1 Gm/50 Ml IV 100 mls/hr Q24HR DIONISIO Administration Miscellaneous Medication 50 mg 10/11/18 10:00 Mirabegron [Myrbetriq] PO QDAY DIONISIO Miscellaneous Medication 10 meq 10/10/18 22:00 Potassium Citrate (Nf) PO BID DIONISIO Morphine Sulfate 2 mg 10/08/18 21:44 10/13/18 22:10 Morphine IV 2 mg Q4H PRN Administration Pain, Moderate (4-6) Nadolol 40 mg 10/11/18 10:00 10/13/18 10:51 Corgard PO Not Given DAILY DIONISIO Ondansetron HCl 4 mg 10/08/18 12:11 10/14/18 01:11 Zofran IV 4 mg Q8H PRN Administration Nausea And Vomiting Ondansetron HCl 4 mg 10/10/18 16:36 10/12/18 22:09 Zofran Odt PO 4 mg Q8H PRN Administration Nausea Pantoprazole Sodium 40 mg 10/11/18 10:00 10/14/18 09:20 Protonix PO 40 mg QDAY DIONISIO Administration Sodium Chloride 10 ml 10/08/18 22:00 10/14/18 03:04 Sodium Chloride Flush Syringe 10 Ml IV 10 ml BID DIONISIO Administration Sodium Chloride 10 ml 10/08/18 12:11 Sodium Chloride Flush Syringe 10 Ml IV PRN PRN LINE FLUSH
[2018-10-14 15:23] VITALS: BP 80/54
--- NOTE | 2018-10-14 16:05 | Consultation ---
History of Present Illness - Reason for Consult Consult date: 10/14/18 E coli UTI Requesting physician: TIFFANIE NEWSOME - History of Present Illness 68 y/o female with history of bilateral hydronephrosis from bilateral ureteral strictures s/p multiple stents, recurrent E coli UTI, CKD, obesity, HTN, DM, CAD, Atrial Fib, GERD, JOSEFINA noncompliant with CPAP; admitted on 10/08/2018 due to severe abdominal pain. Denies dysuria, hematuria or fever. Patient reports she had cysto, Bilateral RPG with bilateral stents removal on 09/22/2018, sent home on macrobid and narco. In the ED, temp 98.2, HR 90, BP 137/70 R 18, O2 sat 95%. WBC 6.3. Hg 10.8. Plat 241. Creat 3.1. Glucose 72. UA no obtain. Urine culture 10/09/2018 MDR E coli. Urine culture 10/09/2018 MDR E coli. CXR no consolidation. CT head no acute changes. CT abdomen showed severe bilateral hydronephrosis and hydroureter. Bilateral obstructing calculi in the distal ureters as described. Additional nonobstructing calculus in the left kidney. Patient seems confused on interview. S/p cysto, bilateral RPG and right double J stent placement on 10/08/2018. Left stent was not able to be placed. JUAN Naik did a right PC nephrostomy tube placement. Review of Systems: General: no fever, chills, nightsweats, unintentional weight change, or change in appetite Cutaneous: no rash, pruritus Head: no headaches or injury Eyes: no changes in vision, eye pain, double vision Ears: no ear pain, ear discharge, ringing or hearing loss Nose: no nose bleeding, stuffiness Mouth & throat: no bleeding gums, no horseness, no dental problems, or swollen glands Neck: no pain, node enlargement/lumps, tyroid enlargement or tenderness Respiratory: no cough, wheezing, sputum, hemoptysis, pleuritic chest pain Cardiovascular: no chest pain, leg edema, cyanosis, SAHU, orthopnea Musculoskeletal: no decreased joint motion, bone or joint pain, joint swelling, muscle aches Gastrointestinal: + nausea, +severe abdominal pain. vomiting, hematemesis, diarrhea, constipation, melena, bright red blood in stools, fecal incontinence, jaundice Genitourinary/Reproductive: no frequent urination, dysuria, hematuria, incontinence Neurogical: no seizures, no headaches, no weakness, no paresthesias, no loss of speech or vision; no memory loss, no vertigo, no tremors, no numbness Psychiatric: stable mood; no excessive anxiety, sadness or moodiness Past History Past Medical History: atrial fib, CAD, diabetes, GERD, hypertension, other (JOSEFINA) Past Surgical History: bowel surgery, Other (Pacemaker placement) Social history: . denies: smoking, alcohol abuse, prescription drug ab use Family history: diabetes, hypertension Medications and Allergies Allergies Allergy/AdvReac Type Severity Reaction Status Date / Time Sulfa (Sulfonamide Allergy Itching, Verified 09/03/18 11:09 Antibiotics) VOMITING hydromorphone HCl AdvReac HALLUCINATI Verified 09/14/18 14:07 [From Dilaudid] ONS,confusi on oxycodone [From Percocet] AdvReac Itching Verified 09/03/18 11:09 BANDAIDS AdvReac SKIN Uncoded 09/03/18 11:09 IRRITATION Home Medications Medication Instructions Recorded Confirmed Last Taken Type Nadolol [Corgard] 40 mg PO DAILY tablet 12/10/15 10/10/18 10/08/18 10:00 Rx Mirabegron [Myrbetriq] 50 mg PO QDAY 09/19/16 10/10/18 10/08/18 History Insulin Detemir [Levemir Flextouch] 1 unit SQ QHS PRN 01/28/17 10/10/18 06/22/18 History Pantoprazole [Protonix] 40 mg PO QDAY 01/28/17 10/10/18 10/08/18 10:00 History ALPRAZolam [Xanax TAB] 1 mg PO TID 06/29/17 10/10/18 09/21/18 History Clopidogrel Bisulfate [Plavix] 75 mg PO DAILY 06/29/17 10/10/18 7 Days Ago History ~09/15/18 Potassium Citrate (Nf) [Urocit K 5] 10 meq PO BID 06/29/17 10/10/18 10/08/18 History AtorvaSTATin [Lipitor] 20 mg PO QHS 04/16/18 10/10/18 09/21/18 History Ferrous Sulfate [Iron] 325 mg PO DAILY 04/16/18 10/10/18 10/08/18 History HYDROcodone/ACETAMINOPHEN [[place] 1 each PO PRN PRN 04/16/18 10/10/18 10/08/18 History 10-325 Tablet] Ondansetron [Zofran TAB] 4 mg PO Q8HR PRN 04/16/18 10/10/18 10/08/18 History amLODIPine [Norvasc] 5 mg PO DAILY 04/16/18 10/10/18 10/08/18 10:00 History Cephalexin [Keflex] 500 mg PO BID #10 capsule 10/14/18 Unknown Rx Active Meds: Active Medications Acetaminophen/Hydrocodone Bitart ([place] 10/325) 1 each PO Q4H PRN PRN Reason: Pain, Moderate (4-6) Last Admin: 10/14/18 11:36 Dose: 1 each Documented by: Acetaminophen/Hydrocodone Bitart ([place] 10/325) 1 each PO Q6H PRN PRN Reason: Pain , Severe (7-10) Last Admin: 10/12/18 01:02 Dose: 1 each Documented by: Alprazolam (Xanax) 1 mg PO TID [facility] Last Admin: 10/14/18 09:21 Dose: 1 mg Documented by: Amlodipine Besylate (Norvasc) 5 mg PO DAILY [facility] Last Admin: 10/13/18 10:00 Dose: Not Given Documented by: Atorvastatin Calcium (Lipitor) 20 mg PO QHS [facility] Last Admin: 10/13/18 22:10 Dose: 20 mg Documented by: Clopidogrel Bisulfate (Plavix) 75 mg PO DAILY [facility] Last Admin: 10/14/18 09:21 Dose: 75 mg Documented by: Dextrose (D50w (25gm) Syringe) 50 ml IV PRN PRN PRN Reason: Hypoglycemia Ferrous Sulfate (Feosol) 325 mg PO DAILY [facility] Last Admin: 10/14/18 09:21 Dose: 325 mg Documented by: Sodium Chloride (Nacl 0.45% 1000 Ml) 1,000 mls @ 100 mls/hr IV DIRECT [facility] Last Admin: 10/14/18 09:14 Dose: 100 mls/hr Documented by: Ceftriaxone Sodium (Rocephin/Ns 1 Gm/50 Ml) 1 gm in 50 mls @ 100 mls/hr IV Q24HR [facility] Last Admin: 10/14/18 09:15 Dose: 100 mls/hr Documented by: Miscellaneous Medication (Mirabegron [Myrbetriq]) 50 mg PO QDAY [facility] Miscellaneous Medication (Potassium Citrate (Nf)) 10 meq PO BID [facility] Morphine Sulfate (Morphine) 2 mg IV Q4H PRN PRN Reason: Pain, Moderate (4-6) Last Admin: 10/13/18 22:10 Dose: 2 mg Documented by: Nadolol (Corgard) 40 mg PO DAILY [facility] Last Admin: 10/13/18 10:51 Dose: Not Given Documented by: Ondansetron HCl (Zofran) 4 mg IV Q8H PRN PRN Reason: Nausea And Vomiting Last Admin: 10/14/18 01:11 Dose: 4 mg Documented by: Ondansetron HCl (Zofran Odt) 4 mg PO Q8H PRN PRN Reason: Nausea Last Admin: 10/12/18 22:09 Dose: 4 mg Documented by: Pantoprazole Sodium (Protonix) 40 mg PO QDAY [facility] Last Admin: 10/14/18 09:20 Dose: 40 mg Documented by: Sodium Chloride (Sodium Chloride Flush Syringe 10 Ml) 10 ml IV BID [facility] Last Admin: 10/14/18 03:04 Dose: 10 ml Documented by: Sodium Chloride (Sodium Chloride Flush Syringe 10 Ml) 10 ml IV PRN PRN PRN Reason: LINE FLUSH Physical Examination - Physical Exam Narrative exam: General appearance: Alert in NAD, conversant, anxious Eyes: anicteric sclerae, moist conjunctivae; no lid-lag; PERRLA HENT: Atraumatic; oropharynx clear with moist mucous membranes and no mucosal ulcerations/no oral thrush; normal hard and soft palate. Normal external ears. Neck: Trachea midline; supple, no thyromegaly or lymphadenopathy Lungs: CTA, with normal respiratory effort and no intercostal retractions CV: RRR, no murmurs Abdomen: Soft, TTP diffusely, old surg scars, R PQ PROVER tube with clear urine Extremities: No peripheral edema or extremity lymphadenopathy Skin: Normal temperature, turgor and texture; no rash, ulcers or subcutaneous nodules Psych: anxious Neuro: alert and oriented x 3 slightly confused. Moving all extermities - Constitutional Vitals: Vital Signs Temp Pulse Resp BP Pulse Ox 97.9 F 82 18 80/54 100 10/14/18 15:19 10/14/18 15:19 10/14/18 15:19 10/14/18 15:19 10/14/18 15:19 Temperature -Last 24 Hours Temperature 97.9 F Temperature 97.9 F Temperature 97.7 F Temperature 97.4 F Temperature 98.0 F Temperature 98.6 F Temperature 98.4 F Temperature 97 F Results - Labs CBC & Chem 7: 10/14/18 10:51 10/14/18 10:51 Labs: Abnormal lab results 10/13/18 10/13/18 10/14/18 Range/Units 16:49 22:04 10:51 RBC 3.28 L (3.65-5.03) M/mm3 RDW 17.6 H (13.2-15.2) % Price % (Auto) 11.4 H (0.0-7.3) % Price # 0.9 H (0.0-0.8) K/mm3 Sodium (137-145) mmol/L Chloride (98-107) mmol/L Carbon Dioxide (22-30) mmol/L BUN (7-17) mg/dL Creatinine (0.7-1.2) mg/dL Glucose (65-100) mg/dL POC Glucose 67 L 135 H (70-105) Calcium (8.4-10.2) mg/dL 10/14/18 Range/Units 10:51 RBC (3.65-5.03) M/mm3 RDW (13.2-15.2) % Price % (Auto) (0.0-7.3) % Price # (0.0-0.8) K/mm3 Sodium 136 L (137-145) mmol/L Chloride 109.0 H (98-107) mmol/L Carbon Dioxide 13 L (22-30) mmol/L BUN 22 H (7-17) mg/dL Creatinine 2.9 H (0.7-1.2) mg/dL Glucose 110 H (65-100) mg/dL POC Glucose (70-105) Calcium 8.2 L (8.4-10.2) mg/dL Assessment and Plan Cultures: Urine culture 10/09/2018 MDR E coli. Urine culture 10/09/2018 MDR E coli Assessment: 68 y/o female with history of bilateral hydronephrosis from bilateral ureteral strictures s/p multiple stents, recurrent E coli UTI, CKD, obesity, HTN, DM, CAD, Atrial Fib, GERD, JOSEFINA noncompliant with CPAP; admitted on 10/08/2018 due to severe abdominal pain: 1) Likely complicated UTI/pyelonephritis: patient with bilateral hydronephrosis. Etio. MDR Ecoli. UA was not sent.S/p Bilateral RPG with bilateral stents removal on 09/22/2018, sent home on macrobid and narco. - Urine culture 10/09/2018 MDR E coli - CT abdomen showed severe bilateral hydronephrosis and hydroureter. Bilateral obstructing calculi in the distal ureters as described. Additional nonobstructing calculus in the left kidney. - S/p cysto, bilateral RPG and right double J stent placement on 10/08/2018. Left stent was not able to be placed - S/p IR Dr Naik right PC nephrostomy tube placement. 2) CKD Recommendations: - obtain UA - continue ceftriaxone 1 gm IV qday D4 of 5 - ok to d/c home tomorrow on ceftin (cefuroxime) 500 mg PO qday total 10 days until 10/20/2018 (renally adjusted) - ID clinic in [address] Newsome Will follow. Randee Small MD Infectious Diseases Section Chief [facility] ([facility] M [phone] O [phone]
--- NOTE | 2018-10-20 17:28 | Discharge Summary ---
Providers - Providers Date of Admission: 10/08/18 12:43 Date of discharge: 10/15/18 Attending physician: TIFFANIE LYNN 10/08/18 12:11 Consult to Physician [CONS] Urgent Comment: Consulting Provider: PAMELA LANGLEY Physician Instructions: Reason For Exam: diabetes, htn, medical mgmt 10/11/18 14:34 Physical Therapy Evaluation and Treat [CONS] Routine Comment: Reason For Exam: To assist pt with gait and generalized weakness. 10/14/18 07:14 Consult to Physician [CONS] Routine Comment: CONSULT COMPLETED Consulting Provider: GRACE LEONARDO Physician Instructions: Reason For Exam: uti - IV meds needed for home Primary care physician: ADA TERRY Hospitalization Condition: Stable Procedures: cysto, rt stent left perc tube----Dr. Naik Disposition: DC-01 TO HOME OR SELFCARE Core Measure Documentation - Palliative Care Palliative Care/ Comfort Measures: Not Applicable - Core Measures Any of the following diagnoses?: none - VTE Discharge Requirements Deep Vein Thrombosis/Pulmonary Embolism Present on Admission: No Has pt received <5 days of overlap therapy or INR<2.0: No Contraindication No Overlap Therapy order at DC: Medical Contraindication - Acute [place] Discharge Requirements Aspirin at discharge: No Reason for no aspirin on DC: Surgical contraindication PINKY/ARB for LVSD if EF <40%: Not Applicable Reason for no PINKY/ARB: Medical contraindication Beta bernabe at discharge: No Reason for no beta bernabe on DC: Medical contraindication Statin for LDL = or >100 mg/dl on DC: Not Applicable Reason for no statin on DC: Surgical contraindication - Heart Failure Discharge Requirements PINKY/ARB for LVSD if EF <40%: Not Applicable Reason for no PINKY/ARB: Medical contraindication Beta bernabe at discharge: No Reason for no beta bernabe on DC: Medical contraindication Exam - Constitutional Vitals: Temp Pulse Resp BP Pulse Ox 97.9 F 82 18 80/54 100 10/14/18 15:19 10/14/18 15:19 10/14/18 15:19 10/14/18 15:19 10/14/18 15:19 Plan Follow up with: ADA TERRY MD [Primary Care Provider] - 7 Days Prescriptions: Cephalexin [Keflex] 500 mg PO BID #10 capsule
== END 2018-10-14 18:30 | disposition home or self-care (01) | DRG 659 ==
LOC: UNDOADMIN 12:05 → 3A 12:05 → 3B-SURG 12:43
PROVIDERS: ADMIT Urology; ATTEND Urology
PROC: BT141ZZ Fluoroscopy of Kidneys, Ureters and Bladder using Low Osmolar Contrast (ICD-10-PCS; principal; 2018-10-08)
PROC: 0T768DZ Dilation of Right Ureter with Intraluminal Device, Via Natural or Artificial Opening Endoscopic (ICD-10-PCS; 2018-10-08)
PROC: 0TJ98ZZ Inspection of Ureter, Via Natural or Artificial Opening Endoscopic (ICD-10-PCS; 2018-10-08)
PROC: 0T9430Z Drainage of Left Kidney Pelvis with Drainage Device, Percutaneous Approach (ICD-10-PCS; 2018-10-11)
PROC: BT121ZZ Fluoroscopy of Left Kidney using Low Osmolar Contrast (ICD-10-PCS; 2018-10-11)
DX: N13.6 Pyonephrosis (principal); G93.41 Metabolic encephalopathy; E66.2 Morbid (severe) obesity with alveolar hypoventilation; N17.0 Acute kidney failure with tubular necrosis; I48.91 Unspecified atrial fibrillation; K21.9 Gastro-esophageal reflux disease without esophagitis; I12.9 Hypertensive chronic kidney disease with stage 1 through stage 4 chronic kidney disease, or unspecified chronic kidney disease; E11.22 Type 2 diabetes mellitus with diabetic chronic kidney disease; I25.10 Atherosclerotic heart disease of native coronary artery without angina pectoris; N18.3 Chronic kidney disease, stage 3 (moderate); Z68.35 Body mass index [BMI] 35.0-35.9, adult; Z71.3 Dietary counseling and surveillance; Z82.49 Family history of ischemic heart disease and other diseases of the circulatory system; Z83.3 Family history of diabetes mellitus; Z88.2 Allergy status to sulfonamides; Z88.5 Allergy status to narcotic agent; Z88.8 Allergy status to other drugs, medicaments and biological substances; Z79.4 Long term (current) use of insulin; Z79.899 Other long term (current) drug therapy; Z79.01 Long term (current) use of anticoagulants; Z91.19 Patient's noncompliance with other medical treatment and regimen; Z98.0 Intestinal bypass and anastomosis status
CPT/HCPCS: 36415; 50432; 71045; 74176; 74420; 80048; 82962; 85025; 87076; 87086; 87186; 94760; G0378; A9270-GY; C1729; C1751; C1758; C1769; C2617; J0690; J0696; J1956; J2250; J2270; J2370; J2405; J2704; J3010; J7030; J7040; J7120; Q0162; Q9967

== ENCOUNTER 2018-12-01 03:32 | Emergency (ER) | payer OTHER, MEDICARE ==
[2018-12-01 04:05] LABS: Basophils % (Auto) 0.4 % (0.0-1.8); Eosinophils # (Auto) 0.2 K/mm3 (0.0-0.4); Hematocrit 31.5 % (30.3-42.9); Hemoglobin 10.2 gm/dl (10.1-14.3); Lymphocytes # (Auto) 0.9 K/mm3 (1.2-5.4); Lymphocytes % (Auto) 12.7 % (13.4-35.0); Mean Corpuscular HGB Conc 32 % (30-34); Mean Corpuscular Volume 96 fl (79-97); Monocytes # (Auto) 0.6 K/mm3 (0.0-0.8); Platelet Count 182 K/mm3 (140-440); Red Blood Count 3.29 M/mm3 (3.65-5.03)
[2018-12-01 04:07] LABS: Red Cell Distribution Width 20.7 % (13.2-15.2)
[2018-12-01 04:30] LABS: Albumin 2.8 g/dL (3.9-5); Calcium 6.9 mg/dL (8.4-10.2)
[2018-12-01 05:28] VITALS: BP 103/53
[2018-12-01] MEDS ORDERED: MORPHINE IV ONE (06:53)
[2018-12-01] MEDS ORDERED: ZOFRAN IV ONE (06:53)
--- NOTE | 2018-12-01 06:56 | Emergency Department Report ---
ED General Adult HPI - General Chief complaint: Abdominal Pain Stated complaint: RECENT KIDNEY SURG Time Seen by Provider: 12/01/18 06:27 Source: patient Mode of arrival: Ambulatory Limitations: No Limitations - History of Present Illness Initial comments: Patient presents emergency Department with a chief complaint of right flank pain for the last 2-3 days. Patient recently had a nephrostomy tube placed and was admitted to the hospital for hydronephrosis. Patient denies fever, nausea, diarrhea. -: Gradual Location: back Radiation: non-radiation Severity scale (0 -10): 10 Quality: sharp Consistency: constant Improves with: rest Worsens with: movement Associated Symptoms: denies other symptoms Treatments Prior to Arrival: none - Related Data Home Medications Medication Instructions Recorded Confirmed Last Taken Mirabegron [Myrbetriq] 50 mg PO QDAY 09/19/16 10/10/18 10/08/18 Insulin Detemir [Levemir Flextouch] 1 unit SQ QHS PRN 01/28/17 10/10/18 06/22/18 Pantoprazole [Protonix] 40 mg PO QDAY 01/28/17 10/10/18 10/08/18 10:00 ALPRAZolam [Xanax TAB] 1 mg PO TID 06/29/17 10/10/18 09/21/18 Clopidogrel Bisulfate [Plavix] 75 mg PO DAILY 06/29/17 10/10/18 7 Days Ago ~09/15/18 Potassium Citrate (Nf) [Urocit K 5] 10 meq PO BID 06/29/17 10/10/18 10/08/18 AtorvaSTATin [Lipitor] 20 mg PO QHS 04/16/18 10/10/18 09/21/18 Ferrous Sulfate [Iron] 325 mg PO DAILY 04/16/18 10/10/18 10/08/18 HYDROcodone/ACETAMINOPHEN [[place] 1 each PO PRN PRN 04/16/18 10/10/18 10/08/18 10-325 Tablet] Ondansetron [Zofran TAB] 4 mg PO Q8HR PRN 04/16/18 10/10/18 10/08/18 amLODIPine [Norvasc] 5 mg PO DAILY 04/16/18 10/10/18 10/08/18 10:00 Previous Rx's Medication Instructions Recorded Last Taken Type Nadolol [Corgard] 40 mg PO DAILY tablet 12/10/15 10/08/18 10:00 Rx Cephalexin [Keflex] 500 mg PO BID #10 capsule 10/14/18 Unknown Rx HYDROcodone/APAP 5-325 [[place] 1 each PO Q6HR PRN #12 tablet 12/01/18 Unknown Rx 5/325] Ondansetron [Zofran Odt] 4 mg PO Q4HR PRN #20 tab.rapdis 12/01/18 Unknown Rx Sulfamethoxazole/Trimethoprim 1 each PO BID #14 tablet 12/01/18 Unknown Rx [Bactrim DS TAB] Allergies Allergy/AdvReac Type Severity Reaction Status Date / Time Sulfa (Sulfonamide Allergy Itching, Verified 09/03/18 11:09 Antibiotics) VOMITING hydromorphone HCl AdvReac HALLUCINATI Verified 09/14/18 14:07 [From Dilaudid] ONS,confusi on oxycodone [From Percocet] AdvReac Itching Verified 09/03/18 11:09 BANDAIDS AdvReac SKIN Uncoded 09/03/18 11:09 IRRITATION ED Review of Systems ROS: Stated complaint: RECENT KIDNEY SURG Other details as noted in HPI Comment: Unobtainable due to pts medical conditions Constitutional: denies: chills, fever Eyes: denies: eye pain, eye discharge, vision change ENT: denies: ear pain, throat pain Respiratory: denies: cough, shortness of breath, wheezing Cardiovascular: denies: chest pain, palpitations Endocrine: no symptoms reported Gastrointestinal: denies: abdominal pain, nausea, diarrhea Genitourinary: denies: urgency, dysuria, discharge Musculoskeletal: back pain (right flank pain). denies: joint swelling, arthralgia Skin: denies: rash, lesions Neurological: denies: headache, weakness, paresthesias Psychiatric: denies: anxiety, depression Hematological/Lymphatic: denies: easy bleeding, easy bruising ED Past Medical Hx - Past Medical History Previous Medical History?: Yes Hx Hypertension: Yes (no antihypertensive today) Hx Heart Attack/AMI: No Hx Diabetes: Yes (type 2) Hx Deep Vein Thrombosis: Yes Hx GERD: Yes Hx Liver Disease: No Hx Renal Disease: Yes (CKD) Hx Arthritis: Yes Hx Seizures: No Hx Kidney Stones: Yes Hx Asthma: No Hx COPD: No Hx HIV: No Additional medical history: nephrostomy,kidney stones,kidney stents - Surgical History Past Surgical History?: Yes Hx Pacemaker: Yes (patient reports that she is not pacer dependent) Additional Surgical History: HYSTERECTOMY. HERNIA REPAIR - Social History Smoking Status: Never Smoker Substance Use Type: None - Medications Home Medications: Home Medications Medication Instructions Recorded Confirmed Last Taken Type Nadolol [Corgard] 40 mg PO DAILY tablet 12/10/15 10/10/18 10/08/18 10:00 Rx Mirabegron [Myrbetriq] 50 mg PO QDAY 09/19/16 10/10/18 10/08/18 History Insulin Detemir [Levemir Flextouch] 1 unit SQ QHS PRN 01/28/17 10/10/18 06/22/18 History Pantoprazole [Protonix] 40 mg PO QDAY 01/28/17 10/10/18 10/08/18 10:00 History ALPRAZolam [Xanax TAB] 1 mg PO TID 06/29/17 10/10/18 09/21/18 History Clopidogrel Bisulfate [Plavix] 75 mg PO DAILY 06/29/17 10/10/18 7 Days Ago History ~09/15/18 Potassium Citrate (Nf) [Urocit K 5] 10 meq PO BID 06/29/17 10/10/18 10/08/18 History AtorvaSTATin [Lipitor] 20 mg PO QHS 04/16/18 10/10/18 09/21/18 History Ferrous Sulfate [Iron] 325 mg PO DAILY 04/16/18 10/10/18 10/08/18 History HYDROcodone/ACETAMINOPHEN [[place] 1 each PO PRN PRN 04/16/18 10/10/18 10/08/18 History 10-325 Tablet] Ondansetron [Zofran TAB] 4 mg PO Q8HR PRN 04/16/18 10/10/18 10/08/18 History amLODIPine [Norvasc] 5 mg PO DAILY 04/16/18 10/10/18 10/08/18 10:00 History Cephalexin [Keflex] 500 mg PO BID #10 capsule 10/14/18 Unknown Rx HYDROcodone/APAP 5-325 [[place] 1 each PO Q6HR PRN #12 tablet 12/01/18 Unknown Rx 5/325] Ondansetron [Zofran Odt] 4 mg PO Q4HR PRN #20 tab.rapdis 12/01/18 Unknown Rx Sulfamethoxazole/Trimethoprim 1 each PO BID #14 tablet 12/01/18 Unknown Rx [Bactrim DS TAB] ED Physical Exam - General Limitations: No Limitations General appearance: alert, in no apparent distress - Head Head exam: Present: atraumatic, normocephalic - Eye Eye exam: Present: normal appearance, PERRL, EOMI - ENT ENT exam: Present: mucous membranes moist - Neck Neck exam: Present: normal inspection - Respiratory Respiratory exam: Present: normal lung sounds bilaterally. Absent: respiratory distress, wheezes, rales - Cardiovascular Cardiovascular Exam: Present: regular rate, normal rhythm. Absent: systolic mu rmur, diastolic murmur, rubs, gallop - GI/Abdominal GI/Abdominal exam: Present: soft, normal bowel sounds. Absent: distended, tenderness - Extremities Exam Extremities exam: Present: normal inspection - Back Exam Back exam: Present: normal inspection, CVA tenderness (R) - Neurological Exam Neurological exam: Present: alert, oriented X3, CN II-XII intact. Absent: motor sensory deficit - Psychiatric Psychiatric exam: Present: normal affect, normal mood - Skin Skin exam: Present: warm, dry, intact, normal color. Absent: rash ED Course Vital Signs 12/01/18 12/01/18 12/01/18 03:42 04:14 05:27 Temperature 97.7 F Pulse Rate 91 H 89 90 Respiratory 18 15 16 Rate Blood Pressure 98/51 105/56 103/53 [Right] O2 Sat by Pulse 94 99 97 Oximetry ED Medical Decision Making - Lab Data Result diagrams: 12/01/18 03:48 12/01/18 03:48 Lab Results 12/01/18 12/01/18 12/01/18 Range/Units 03:48 03:48 07:52 WBC 7.0 (4.5-11.0) K/mm3 RBC 3.29 L (3.65-5.03) M/mm3 Hgb 10.2 (10.1-14.3) gm/dl Hct 31.5 (30.3-42.9) % MCV 96 (79-97) fl MCH 31 (28-32) pg MCHC 32 (30-34) % RDW 20.7 H (13.2-15.2) % Plt Count 182 (140-440) K/mm3 Lymph % (Auto) 12.7 L (13.4-35.0) % [place] % (Auto) 9.0 H (0.0-7.3) % Eos % (Auto) 3.0 (0.0-4.3) % Baso % (Auto) 0.4 (0.0-1.8) % Lymph # 0.9 L (1.2-5.4) K/mm3 [place] # 0.6 (0.0-0.8) K/mm3 Eos # 0.2 (0.0-0.4) K/mm3 Baso # 0.0 (0.0-0.1) K/mm3 Seg Neutrophils % 74.9 H (40.0-70.0) % Seg Neutrophils # 5.3 (1.8-7.7) K/mm3 Sodium 140 (137-145) mmol/L Potassium 4.6 (3.6-5.0) mmol/L Chloride 112.2 H (98-107) mmol/L Carbon Dioxide 18 L (22-30) mmol/L Anion Gap 14 mmol/L BUN 27 H (7-17) mg/dL Creatinine 2.8 H (0.7-1.2) mg/dL Estimated GFR 20 ml/min BUN/Creatinine Ratio 10 % Glucose 94 (65-100) mg/dL Calcium 6.9 L (8.4-10.2) mg/dL Total Bilirubin 0.30 (0.1-1.2) mg/dL AST 13 (5-40) units/L ALT 13 (7-56) units/L Alkaline Phosphatase 150 H (35-129) units/L Total Protein 5.8 L (6.3-8.2) g/dL Albumin 2.8 L (3.9-5) g/dL Albumin/Globulin Ratio 0.9 % Urine Color Straw (Yellow) Urine Turbidity Cloudy (Clear) Urine pH 6.0 (5.0-7.0) Ur Specific L[place] 1.008 (1.003-1.030) Urine Protein 100 mg/dl (Negative) mg/dL Urine Glucose (UA) Neg (Negative) mg/dL Urine Ketones Neg (Negative) mg/dL Urine Blood Large A (Negative) Urine Nitrite Neg (Negative) Ur Reducing Substances Not Reportable Urine Bilirubin Neg (Negative) Urine Ictotest Not Reportable Urine Urobilinogen < 2.0 (<2.0) mg/dL Ur Leukocyte Esterase Lg (Negative) Urine WBC (Auto) > 182.0 H (0.0-6.0) /HPF Urine RBC (Auto) 58.0 (0.0-6.0) /HPF U Epithel Cells (Auto) 1.0 (0-13.0) /HPF Urine Bacteria (Auto) 2+ (Negative) /HPF Urine Mucus Few /HPF Urine Yeast (Budding) Not Reportable - Radiology Data Radiology results: report reviewed - Medical Decision Making CT reviewed from today and from prior visit. Today's CT does not show hydronephrosis or any stranding around the left kidney or right kidney Discussed results with patient Patient given IV antibiotics Stone is of approximate same size of prior CT Patient states she will follow-up with her urologist who is Dr. Newsome Critical care attestation.: If time is entered above; I have spent that time in minutes in the direct care of this critically ill patient, excluding procedure time. ED Disposition Clinical Impression: UTI (urinary tract infection), Flank pain, Nephrolithiasis Disposition: TO HOME OR SELFCARE Is pt being admited?: No Does the pt Need Aspirin: No Condition: Stable Instructions: Urinary Tract Infection in Women (ED), Kidney Stones (ED) Additional Instructions: Return if worse Prescriptions: Sulfamethoxazole/Trimethoprim [Bactrim DS TAB] 1 each PO BID #14 tablet HYDROcodone/APAP 5-325 [[place] 5/325] 1 each PO Q6HR PRN #12 tablet PRN Reason: Pain Ondansetron [Zofran Odt] 4 mg PO Q4HR PRN #20 tab.rapdis PRN Reason: Nausea Referrals: GARO COTA MD [Primary Care Provider] - 3-5 Days TIFFANIE NEWSOME MD [Staff Physician] - 3-5 Days Time of Disposition: 09:13
[2018-12-01 08:17] LABS: Bacteria,Urine 2+ /HPF (Negative); Mucus,Urine FEW /HPF
[2018-12-01 08:18] LABS: WBC,Urine > 182.0 /HPF (0.0-6.0)
[2018-12-01 08:19] LABS: Bilirubin,Urine NEG (Negative); Urobilinogen,Urine < 2.0 mg/dL (<2.0)
[2018-12-01 08:21] LABS: Blood,Urine Large (Negative); Color,Urine Straw (Yellow)
--- NOTE | 2018-12-01 08:31 | Cat Scan Report ---
CT ABDOMEN PELVIS WITHOUT CONTRAST: HISTORY: Flank pain. COMPARISON: 10/08/18. TECHNIQUE: Helical CT in 1.25mm intervals without IV contrast. Sagittal and coronal reconstructions. FINDINGS: Lung bases: Normal. Liver: Normal. Biliary system: Cholecystectomy changes. Pancreas: Normal. Spleen: Normal. Kidneys/ureters/bladder: A right ureteral stent and a left nephrostomy tube have been placed since the previous exam. Bilateral hydronephrosis has resolved. There are multiple bilateral renal cysts. The left kidney is atrophic with diffuse cortical thinning. A 6 mm calculus is noted in the mid left ureter on image 111, series 2. A second 6 mm distal left ureteral stone is identified on image 134, series 2. No obvious right ureteral stones or renal stones. There is moderate urothelial thickening in the right renal pelvis and right ureter which is grossly unchanged. The bladder is unremarkable. Adrenal glands: Normal. Aorta: Mild distal calcifications. No aneurysm. Intestines: Limited without oral contrast. No evidence for GI obstruction or focal inflammation. No obvious mass. Appendix: Not identified. Pelvic viscera: Normal. Ascites: None. Adenopathy: None. Musculoskeletal: Mild osteopenia and degenerative changes in the lumbar spine. No fracture or suspicious bony lesion is identified. Previous ventral wall hernia repair changes are noted which appear intact. IMPRESSION: Right ureteral stent and left nephrostomy have been placed since the previous exam. No hydronephrosis. There are however 2 left ureteral stones as described. Bilateral renal cysts. Slightly atrophic left kidney. Surgical changes as described. No acute inflammatory process is identified.
[2018-12-01] MEDS ORDERED: ROCEPHIN IM ONE (08:44)
[2018-12-01] MEDS ORDERED: XYLOCAINE 1% MPF 5 mL INFILTRATI ONE (08:44)
[2018-12-01] MEDS ORDERED: NACL 0.9% 100 ML ONE (09:03)
== END 2018-12-01 09:57 | disposition home or self-care (01) ==
LOC: ED 03:32
DX: N20.0 Calculus of kidney (principal); N39.0 Urinary tract infection, site not specified; I12.9 Hypertensive chronic kidney disease with stage 1 through stage 4 chronic kidney disease, or unspecified chronic kidney disease; E11.22 Type 2 diabetes mellitus with diabetic chronic kidney disease; N18.9 Chronic kidney disease, unspecified; K21.9 Gastro-esophageal reflux disease without esophagitis; Z86.718 Personal history of other venous thrombosis and embolism; Z95.0 Presence of cardiac pacemaker; Z79.4 Long term (current) use of insulin; Z90.710 Acquired absence of both cervix and uterus; Z88.6 Allergy status to analgesic agent; Z88.2 Allergy status to sulfonamides; Z88.8 Allergy status to other drugs, medicaments and biological substances; Z91.048 Other nonmedicinal substance allergy status
CPT/HCPCS: 36415; 74176; 80053; 81001; 85025; 96372; 96374; 96375; 99284; J0696; J2270; J2405

== ENCOUNTER 2018-12-16 08:25 | Day surgery (SDC) | payer OTHER, MEDICARE ==
[2018-12-16 10:17] LABS: Basophils % (Auto) 0.4 % (0.0-1.8); Eosinophils # (Auto) 0.2 K/mm3 (0.0-0.4); Eosinophils % (Auto) 4.2 % (0.0-4.3); Hematocrit 27.5 % (30.3-42.9); Hemoglobin 8.9 gm/dl (10.1-14.3); Lymphocytes # (Auto) 1.2 K/mm3 (1.2-5.4); Lymphocytes % (Auto) 20.5 % (13.4-35.0); Mean Corpuscular HGB Conc 32 % (30-34); Mean Corpuscular Volume 97 fl (79-97); Monocytes # (Auto) 0.7 K/mm3 (0.0-0.8); Monocytes % (Auto) 11.5 % (0.0-7.3); Platelet Count 232 K/mm3 (140-440); Red Blood Count 2.83 M/mm3 (3.65-5.03)
[2018-12-16] MEDS: NACL 0.9% 500 ML 500 ML IV SCH ×2 (10:25→17:40)
[2018-12-16 10:27] LABS: Red Cell Distribution Width 20.4 % (13.2-15.2)
[2018-12-16 10:33] LABS: INR 0.95 (0.87-1.13)
[2018-12-16 10:34] LABS: Partial Thromboplastin Time 25.8 Sec. (24.2-36.6)
[2018-12-16 10:41] LABS: Calcium 7.2 mg/dL (8.4-10.2)
[2018-12-16] MEDS ORDERED: LEVAQUIN 500MG/100ML 500 MG/100 ML BAG IV NR (11:00)
[2018-12-16] MEDS ORDERED: D50W (25GM) Syringe IV ONE (13:53)
--- NOTE | 2018-12-16 16:37 | Short Stay Summary ---
Short Stay Documentation Date of service: 12/16/18 Narrative H&P: 68 year old female with left PCN malfunction presenting for ureteral stent internalization. Due to thick material in the nephrostomy tube, will plan for exchange and subsequent internalization in 2 weeks. - History Principal diagnosis: PCN malfunction Past Medical History: diabetes - Allergies and Medications Current Medications: Allergies Sulfa (Sulfonamide Antibiotics) Allergy (Verified 09/03/18 11:09) Itching, VOMITING adhesive tape Adverse Reaction (Verified 12/16/18 09:09) Unknown skin irritation hydromorphone HCl [From Dilaudid] Adverse Reaction (Verified 09/14/18 14:07) HALLUCINATIONS,confusion oxycodone [From Percocet] Adverse Reaction (Verified 09/03/18 11:09) Itching BANDAIDS Adverse Reaction (Uncoded 09/03/18 11:09) SKIN IRRITATION Home Medications Medication Instructions Recorded Confirmed Last Taken Type Nadolol [Corgard] 40 mg PO DAILY tablet 12/10/15 12/16/18 1 Day Ago Rx ~12/15/18 Mirabegron [Myrbetriq] 50 mg PO QDAY 09/19/16 12/16/18 12/16/18 History Insulin Detemir [Levemir Flextouch] 1 unit SQ QHS PRN 01/28/17 12/16/18 06/22/18 History Pantoprazole [Protonix] 40 mg PO QDAY 01/28/17 12/16/18 12/16/18 History ALPRAZolam [Xanax TAB] 1 mg PO TID 06/29/17 12/16/18 12/16/18 History Clopidogrel Bisulfate [Plavix] 75 mg PO DAILY 06/29/17 12/16/18 2 Weeks Ago History ~12/02/18 Potassium Citrate (Nf) [Urocit K 5] 10 meq PO BID 06/29/17 12/16/18 12/16/18 History AtorvaSTATin [Lipitor] 20 mg PO QHS 04/16/18 12/16/18 12/16/18 History Ferrous Sulfate [Iron] 325 mg PO DAILY 04/16/18 12/16/18 10/08/18 History HYDROcodone/ACETAMINOPHEN [[place] 1 each PO PRN PRN 04/16/18 12/16/18 10/08/18 History 10-325 Tablet] Ondansetron [Zofran TAB] 4 mg PO Q8HR PRN 04/16/18 12/16/18 12/16/18 History amLODIPine [Norvasc] 5 mg PO DAILY 04/16/18 12/16/18 1 Day Ago History ~12/15/18 Cephalexin [Keflex] 500 mg PO BID #10 capsule 10/14/18 12/16/18 12/16/18 Rx HYDROcodone/APAP 5-325 [[place] 1 each PO Q6HR PRN #12 tablet 12/01/18 12/16/18 12/16/18 Rx 5/325] Ondansetron [Zofran Odt] 4 mg PO Q4HR PRN #20 tab.rapdis 12/01/18 12/16/18 Unknown Rx Sulfamethoxazole/Trimethoprim 1 each PO BID #14 tablet 12/01/18 12/16/18 12/16/18 Rx [Bactrim DS TAB] Active Medications Sodium Chloride (Nacl 0.9% 500 Ml) 500 mls @ 50 mls/hr IV DIRECT DIONISIO Last Admin: 12/16/18 10:25 Dose: 50 mls/hr Documented by: - Physical exam General appearance: no acute distress Lungs: Normal air movement Gastrointestinal: normal, other (no CVT ; thick white material in nephrostomy tube ) Extremities: normal temperature, normal color - Brief post op/procedure progress note Date of procedure: 12/16/18 Pre-op diagnosis: PCN malfunction Post-op diagnosis: same Procedure: PCN exchange Anesthesia: local (w/ conscious sedation) Surgeon: SADIA ABDULLAHI Estimated blood loss: minimal Condition: stable - Hospital course Hospital course: Ready for discharge. - Disposition Condition at discharge: Stable Disposition: DC-01 TO HOME OR SELFCARE - Discharge Diagnoses (1) Malfunction of nephrostomy tube Status: Acute Short Stay Discharge Plan Activity: advance as tolerated Weight Bearing Status: Weight Bear as Tolerated Diet: regular Wound: keep clean and dry Follow up with: ADA TERRY MD [Primary Care Provider] - 7 Days
--- NOTE | 2018-12-16 16:50 | Operative Report ---
Operative Report Operative Report: Exam: 1. Injection through left-sided indwelling nephrostomy tube 2. Left-sided nephrostomy tube exchange with an 8 [place]ian nephrostomy tube Indication: Hydronephrosis with left-sided nephrostomy tube and large amount of white debris in the catheter tubing with some mild discomfort from the left kidney. Date: 12/16/2018 Contrast: Please see Electrical Troubleshooter report for full details Medications: Please see Electrical Troubleshooter report for full details Technique: The risks, benefits, and alternatives were discussed with the patient; written informed consent was obtained by the patient and her daughter. The patient was placed in the prone position and her left flank was prepped and draped in a sterile fashion. The tract at her skin had some widening and minimal drainage concerning for early signs of tract infection. The catheter was aspirated and flushed. The catheter was injected with contrast demonstrating left-sided moderate hydronephrosis without hydroureter. There was no spontaneous passage into the bladder. The nephrostomy tube was cut and a 0.035 inch [place] wire was advanced into the collecting system. Nephrostomy tube was removed over the wire. A new nephrostomy tube was advanced over the wire and coiled in the renal pelvis. [place] loop was formed. Contrast was injected confirming position in the collecting system. Contrast was then aspirated and flush was injected through the catheter and then aspirated. The site was secured using two 2-0 Ethilon sutures and a StatLock device. Patient tolerated the procedure well. No immediate postprocedural complication. Findings: Please see procedure note above. Impression: Successful left-sided nephrostomy tube exchange. Patient was placed on antibiotics for 7 days. She will presents back in 2 weeks for internalization of the nephrostomy tube.
[2018-12-16] MEDS ORDERED: NACL 0.9% 500 ML IR ONE (17:11)
[2018-12-16] MEDS ORDERED: SUBLIMAZE ONE (17:12)
[2018-12-16] MEDS ORDERED: XYLOCAINE 1%/ EPI 1:100,000 INFILTRATI ONE (17:12)
[2018-12-16] MEDS ORDERED: VERSED ONE (17:12)
[2018-12-16 18:43] VITALS: BP 120/72
== END 2018-12-16 19:01 | disposition home or self-care (01) ==
LOC: CATHLABREC 08:25
PROVIDERS: ATTEND Radiology Diagnostic Radiology
DX: N13.39 Other hydronephrosis (principal); I12.9 Hypertensive chronic kidney disease with stage 1 through stage 4 chronic kidney disease, or unspecified chronic kidney disease; E11.22 Type 2 diabetes mellitus with diabetic chronic kidney disease; N18.3 Chronic kidney disease, stage 3 (moderate); D64.9 Anemia, unspecified; I25.10 Atherosclerotic heart disease of native coronary artery without angina pectoris; G47.33 Obstructive sleep apnea (adult) (pediatric); E78.00 Pure hypercholesterolemia, unspecified; I48.91 Unspecified atrial fibrillation; K21.9 Gastro-esophageal reflux disease without esophagitis; M19.90 Unspecified osteoarthritis, unspecified site; F32.9 Major depressive disorder, single episode, unspecified; E66.9 Obesity, unspecified; F41.9 Anxiety disorder, unspecified; Z91.81 History of falling; Z88.2 Allergy status to sulfonamides; Z79.4 Long term (current) use of insulin; Z79.899 Other long term (current) drug therapy; Z68.36 Body mass index [BMI] 36.0-36.9, adult; Z87.440 Personal history of urinary (tract) infections; Z96.0 Presence of urogenital implants; Z98.49 Cataract extraction status, unspecified eye; Z95.0 Presence of cardiac pacemaker; Z90.710 Acquired absence of both cervix and uterus; Z98.51 Tubal ligation status; Z87.442 Personal history of urinary calculi; Z88.8 Allergy status to other drugs, medicaments and biological substances
CPT/HCPCS: 36415; 50435; 80048; 82962; 85025; 85610; 85730; 96360; 96374; C1729; C1769; J1956; J2250; J3010; J7040; Q9967

== ENCOUNTER 2019-01-06 07:27 | Day surgery (SDC) | payer OTHER, MEDICARE ==
[2019-01-06 08:55] LABS: Hematocrit 31.4 % (30.3-42.9); Hemoglobin 10.4 gm/dl (10.1-14.3); Mean Corpuscular HGB Conc 33 % (30-34); Mean Corpuscular Volume 96 fl (79-97); Platelet Count 134 K/mm3 (140-440); Red Blood Count 3.27 M/mm3 (3.65-5.03); Red Cell Distribution Width 19.1 % (13.2-15.2)
[2019-01-06 09:05] LABS: INR 1.03 (0.87-1.13)
[2019-01-06 09:06] LABS: Partial Thromboplastin Time 29.7 Sec. (24.2-36.6)
[2019-01-06 09:11] LABS: Calcium 6.6 mg/dL (8.4-10.2)
--- NOTE | 2019-01-06 09:43 | Short Stay Summary ---
Short Stay Documentation Date of service: 01/06/19 Narrative H&P: 68-year-old female who presents with indwelling nephrostomy tube for hydronephrosis with need for ureteral stent conversion and nephrostomy tube removal under fluoroscopic guidance. - History Principal diagnosis: hydronephrosis H&P: obtained from office Past Medical History: atrial fib, CAD, diabetes, GERD, hypertension, other (hydronephrosis with nephrostomy tubes in the past, JOSEFINA) - Allergies and Medications Current Medications: Allergies Sulfa (Sulfonamide Antibiotics) Allergy (Verified 09/03/18 11:09) Itching, VOMITING adhesive tape Adverse Reaction (Verified 12/16/18 09:09) Unknown skin irritation hydromorphone HCl [From Dilaudid] Adverse Reaction (Verified 09/14/18 14:07) HALLUCINATIONS,confusion oxycodone [From Percocet] Adverse Reaction (Verified 09/03/18 11:09) Itching BANDAIDS Adverse Reaction (Uncoded 09/03/18 11:09) SKIN IRRITATION Home Medications Medication Instructions Recorded Confirmed Last Taken Type Nadolol [Corgard] 40 mg PO DAILY tablet 12/10/15 12/16/18 1 Day Ago Rx ~12/15/18 Mirabegron [Myrbetriq] 50 mg PO QDAY 09/19/16 12/16/18 12/16/18 History Insulin Detemir [Levemir Flextouch] 1 unit SQ QHS PRN 01/28/17 12/16/18 06/22/18 History Pantoprazole [Protonix] 40 mg PO QDAY 01/28/17 12/16/18 12/16/18 History ALPRAZolam [Xanax TAB] 1 mg PO TID 06/29/17 12/16/18 12/16/18 History Clopidogrel Bisulfate [Plavix] 75 mg PO DAILY 06/29/17 12/16/18 2 Weeks Ago History ~12/02/18 Potassium Citrate (Nf) [Urocit K 5] 10 meq PO BID 06/29/17 12/16/18 12/16/18 History AtorvaSTATin [Lipitor] 20 mg PO QHS 04/16/18 12/16/18 12/16/18 History Ferrous Sulfate [Iron] 325 mg PO DAILY 04/16/18 12/16/18 10/08/18 History HYDROcodone/ACETAMINOPHEN [[place] 1 each PO PRN PRN 04/16/18 12/16/18 10/08/18 History 10-325 Tablet] Ondansetron [Zofran TAB] 4 mg PO Q8HR PRN 04/16/18 12/16/18 12/16/18 History amLODIPine [Norvasc] 5 mg PO DAILY 04/16/18 12/16/18 1 Day Ago History ~12/15/18 Cephalexin [Keflex] 500 mg PO BID #10 capsule 10/14/18 12/16/18 12/16/18 Rx HYDROcodone/APAP 5-325 [[place] 1 each PO Q6HR PRN #12 tablet 12/01/18 12/16/18 12/16/18 Rx 5/325] Ondansetron [Zofran Odt] 4 mg PO Q4HR PRN #20 tab.rapdis 12/01/18 12/16/18 Unknown Rx Sulfamethoxazole/Trimethoprim 1 each PO BID #14 tablet 12/01/18 12/16/18 12/16/18 Rx [Bactrim DS TAB] HYDROcodone/APAP 5-325 [[place] 1 each PO Q6HR PRN #20 tablet 12/16/18 Unknown Rx 5/325] levoFLOXacin [Levaquin TAB] 500 mg PO QDAY #7 tablet 12/16/18 Unknown Rx - Physical exam General appearance: no acute distress Lungs: Normal air movement Gastrointestinal: normal, other (left pain at stitch site) - Brief post op/procedure progress note Date of procedure: 01/06/19 Pre-op diagnosis: Left uretera calculi with hydronephrosis Post-op diagnosis: same Procedure: Attempted crossing of the left ureteral calculi Nephrostomy tube exchange Anesthesia: local (w/ conscious sedation) Surgeon: SADIA ABDULLAHI Estimated blood loss: minimal Condition: stable - Hospital course Hospital course: Tolerated procedure well. No immediate post procedural complication. Discussed with Dr. Newsome who will attempt lithotripsy and see if the stone can be crossed from a retrograde attempt. - Disposition Condition at discharge: Stable Disposition: - TO HOME OR SELFCARE - Discharge Diagnoses (1) Hydronephrosis concurrent with and due to calculi of kidney and ureter Status: Acute (2) Hydronephrosis concurrent with and due to ureteral stricture Status: Acute Short Stay Discharge Plan Activity: advance as tolerated Weight Bearing Status: Weight Bear as Tolerated Diet: regular Wound: keep clean and dry, other (take antibiotics for 7 days, pain medication as needed, Dr. Newsome will perform lithotripsy at scheduled visit) Follow up with: ADA TERRY MD [Primary Care Provider] - 7 Days Prescriptions: levoFLOXacin [Levaquin TAB] 500 mg PO QDAY #7 tablet HYDROcodone/APAP 5-325 [[place] 5/325] 1 - 2 each PO Q6HR PRN #20 tablet PRN Reason: Pain
[2019-01-06] MEDS ORDERED: LEVAQUIN 500MG/100ML 500 MG/100 ML BAG IV ONE (09:50)
[2019-01-06] MEDS ORDERED: NACL 0.9% 500 ML IR ONE (09:50)
[2019-01-06] MEDS ORDERED: NACL 0.9% 250ML 250 ML ONE (09:50)
[2019-01-06] MEDS ORDERED: NACL 0.9% 500 ML 500 ML IV SCH (10:00)
[2019-01-06] MEDS: VERSED ONE ×3 (10:27→11:09)
[2019-01-06] MEDS: SUBLIMAZE ONE ×4 (10:28→11:05)
[2019-01-06] MEDS: XYLOCAINE 1%/ EPI 1:100,000 INFILTRATI ONE ×3 (10:28→10:41)
--- NOTE | 2019-01-06 11:54 | Operative Report ---
Operative Report Operative Report: Exam: 1. Injection through left-sided indwelling nephrostomy tube 2. Attempted crossing of the left ureteral calculi 3. Left-sided nephrostomy tube exchange with an 8 [place] nephrostomy tube Indication: Hydronephrosis with left-sided nephrostomy tube. Date: 01/06/2019 Contrast: Please see Sack Cleaning Hand report for full details Medications: Please see Sack Cleaning Hand report for full details Technique: The risks, benefits, and alternatives were discussed with the patient; written informed consent was obtained by the patient and her daughter. The patient was placed in the prone position and her left flank was prepped and draped in a sterile fashion. The tract at her skin had no issues. The catheter was aspirated and flushed. The catheter was injected with contrast demonstrating left-sided moderate hydronephrosis with mild proximal hydroureter. The proximal to mid ureter had an 6-9 mm calculi in it with no flow distal. There was no spontaneous passage into the bladder. The nephrostomy tube was cut and a 0.035 inch [place] wire was advanced into the collecting system. Nephrostomy tube was removed over the wire. 7 Fr sheath was advanced over the wire to the stone. Angled catheter was advanced over the wire. Multiple wires and catheters were used in an attempt to cross the mid ureteral occlusion, but none would pass. The ureter was distended with dye/fluid as much as possible to cross the occlusion, but it did not distend much and the occlusion was not crossable. The sheath and catheters were removed over the wire. A new nephrostomy tube was advanced over the wire and coiled in the renal pelvis. [place] loop was formed. Contrast was injected confirming position in the collecting system confirming adequate position. Contrast was then aspirated and flush was injected through the catheter and then aspirated. The site was secured using two 2-0 Ethilon sutures and a StatLock device. Patient tolerated the procedure well. No immediate postprocedural complication. Findings: Please see procedure note above. Impression: Successful left-sided nephrostomy tube exchange. Unsuccessful crossing of the left mid ureteral calculi. This was discussed with Dr. Newsome with a plan for retrograde lithotripsy. If stent cannot be placed at that time, then patient will return for another attem pt.
[2019-01-06 16:08] VITALS: BP 97/55
== END 2019-01-06 14:00 | disposition home or self-care (01) ==
LOC: CATHLABREC 07:27
PROVIDERS: ATTEND Radiology Diagnostic Radiology
DX: N13.2 Hydronephrosis with renal and ureteral calculous obstruction (principal); E66.2 Morbid (severe) obesity with alveolar hypoventilation; I12.9 Hypertensive chronic kidney disease with stage 1 through stage 4 chronic kidney disease, or unspecified chronic kidney disease; E11.22 Type 2 diabetes mellitus with diabetic chronic kidney disease; D64.9 Anemia, unspecified; N18.9 Chronic kidney disease, unspecified; I25.10 Atherosclerotic heart disease of native coronary artery without angina pectoris; E78.00 Pure hypercholesterolemia, unspecified; I48.91 Unspecified atrial fibrillation; K21.9 Gastro-esophageal reflux disease without esophagitis; M19.90 Unspecified osteoarthritis, unspecified site; F32.9 Major depressive disorder, single episode, unspecified; F41.9 Anxiety disorder, unspecified; Z91.81 History of falling; Z98.890 Other specified postprocedural states; Z79.899 Other long term (current) drug therapy; Z79.4 Long term (current) use of insulin; Z88.2 Allergy status to sulfonamides; Z87.440 Personal history of urinary (tract) infections; Z98.49 Cataract extraction status, unspecified eye; Z95.0 Presence of cardiac pacemaker; Z86.718 Personal history of other venous thrombosis and embolism; Z98.51 Tubal ligation status; Z90.710 Acquired absence of both cervix and uterus; Z88.8 Allergy status to other drugs, medicaments and biological substances; Z68.33 Body mass index [BMI] 33.0-33.9, adult
CPT/HCPCS: 36415; 50435; 80048; 85027; 85610; 85730; C1725; C1729; C1769; C1894; J1956; J2250; J3010; J7050; J7040; Q9967

== ENCOUNTER 2019-02-10 07:04 | Day surgery (SDC) | payer OTHER, MEDICARE ==
[~2019-02-10 07:04] MED LIST changes: -ANCEF/STERILE WATER 2 GM/20 ML IV NR; +FLAGYL 500 MG/100 ML 500 MG/100 ML BAG IV NR; +OMNIPAQUE (300 MG) IR ONE; +WATER FOR IRRIG STERILE IR ONE
[2019-02-10] MEDS ORDERED: SUBLIMAZE ONE (08:39)
[2019-02-10] MEDS ORDERED: DIPRIVAN 10 MG/ML IV ONE (08:39)
--- NOTE | 2019-02-10 08:59 | Anesthesia Consultation ---
Anesthesia Consult and Med Hx Date of service: 02/10/19 - Airway Anesthetic Teeth Evaluation: Dentures ROM Head & Neck: Adequate Mental/Hyoid Distance: Adequate Mallampati Class: Class II Intubation Access Assessment: Probably Good - Pulmonary Exam CTA: Yes - Cardiac Exam Cardiac Exam: RRR - Pre-Operative Health Status ASA Pre-Surgery Classification: ASA3 Proposed Anesthetic Plan: General (last surgery 3 months ago uneventful) - Pulmonary Hx Smoking: Yes (STOPPED 1976) Hx Asthma: No Hx Respiratory Symptoms: No SOB: Yes (SOB) COPD: No Hx Sleep Apnea: Yes (DX SLEEP APNEA WITH NO CPAP USE) - Cardiovascular System Hx Hypertension: Yes (X 7 YRS) Hx Coronary Artery Disease: Yes Hx Heart Attack/AMI: No Hx Percutaneous Transluminal Coronary Angioplasty (PTCA): No Hx Cardia Arrhythmia: Yes (pA-fib) Hx Pacemaker: Yes (patient reports that she is not pacer dependent) - Central Nervous System Hx Seizures: No CVA: No - Gastrointestinal Hx Gastroesophageal Reflux Disease: Yes (well controlled) - Endocrine Hx Renal Disease: Yes (CKD) Hx Liver Disease: No Hx Insulin Dependent Diabetes: Yes (insulin prn for glucose >200. Reports no recent insulin use.) Hx Thyroid Disease: No - Hematic Hx Anemia: Yes - Other Systems Hx Cancer: No
[2019-02-10] MEDS ORDERED: LACTATED RINGERS 1,000 ML IV SCH (09:00)
--- NOTE | 2019-02-10 09:00 | Anesthesia Day of Surgery ---
Anesthesia Day of Surgery - Day of Surgery Patient Examined: Yes Patient H&P Reviewed: Yes Patient is NPO: Yes
[2019-02-10] MEDS ORDERED: ZOFRAN IV PRN (09:02)
[2019-02-10] MEDS ORDERED: SUBLIMAZE IV PRN (09:02)
[2019-02-10] MEDS ORDERED: WATER FOR IRRIG STERILE IR ONE (09:35)
[2019-02-10] MEDS ORDERED: OMNIPAQUE (300 MG) IR ONE ×2 (09:35)
[2019-02-10] MEDS ORDERED: VERSED IV ONE (10:00)
--- NOTE | 2019-02-10 11:08 | Short Stay Summary ---
Short Stay Documentation Date of service: 02/10/19 - History H&P: obtained from office - Allergies and Medications Current Medications: Allergies Sulfa (Sulfonamide Antibiotics) Allergy (Verified 09/03/18 11:09) Itching, VOMITING adhesive tape Adverse Reaction (Verified 02/01/19 16:43) SKIN IRRITATION hydromorphone HCl [From Dilaudid] Adverse Reaction (Verified 09/14/18 14:07) HALLUCINATIONS,confusion oxycodone [From Percocet] Adverse Reaction (Verified 09/03/18 11:09) Itching BANDAIDS Adverse Reaction (Uncoded 09/03/18 11:09) SKIN IRRITATION Home Medications Medication Instructions Recorded Confirmed Last Taken Type Nadolol [Corgard] 40 mg PO DAILY tablet 12/10/15 02/01/19 1 Day Ago Rx ~12/15/18 Mirabegron [Myrbetriq] 50 mg PO QDAY 09/19/16 02/01/19 12/16/18 History Insulin Detemir [Levemir Flextouch] 1 unit SQ QHS PRN 01/28/17 02/01/19 06/22/18 History Pantoprazole [Protonix] 40 mg PO QDAY 01/28/17 02/01/19 12/16/18 History ALPRAZolam [Xanax TAB] 1 mg PO PRN PRN 06/29/17 02/01/19 12/16/18 History Clopidogrel Bisulfate [Plavix] 75 mg PO DAILY 06/29/17 02/01/19 2 Weeks Ago History ~12/02/18 Potassium Citrate (Nf) [Urocit K 5] 10 meq PO BID 06/29/17 02/01/19 12/16/18 History AtorvaSTATin [Lipitor] 20 mg PO QHS 04/16/18 02/01/19 12/16/18 History Ferrous Sulfate [Iron] 325 mg PO DAILY 04/16/18 02/01/19 10/08/18 History amLODIPine [Norvasc] 5 mg PO DAILY 04/16/18 02/01/19 1 Day Ago History ~12/15/18 Ondansetron [Zofran Odt] 4 mg PO Q4HR PRN #20 tab.rapdis 12/01/18 02/01/19 Unknown Rx HYDROcodone/APAP 5-325 [[place] 1 - 2 each PO Q6HR PRN #20 tablet 01/06/1901/15 Unknown Rx 5/325] levoFLOXacin [Levaquin TAB] 500 mg PO QDAY #7 tablet 01/06/19 02/01/19 Unknown Rx Active Medications Fentanyl (Sublimaze) 50 mcg IV Q5MIN PRN PRN Reason: Pain , Severe (7-10) Stop: 02/10/19 20:00 Metronidazole (Flagyl 500 Mg/100 Ml) 500 mg in 100 mls @ 200 mls/hr IV PREOP NR; Protocol Stop: 02/10/19 23:00 Lactated Ringer's (Lactated Ringers) 1,000 mls @ 100 mls/hr IV DIRECT DIONISIO Last Admin: 02/10/19 09:25 Dose: 100 mls/hr Documented by: Ondansetron HCl (Zofran) 4 mg IV ONCE PRN PRN Reason: Nausea And Vomiting Stop: 02/10/19 12:00 - Brief post op/procedure progress note Date of procedure: 02/10/19 Pre-op diagnosis: left ureteral stone Post-op diagnosis: same Procedure: cysto, left ESWL, rpg, left ureteroscopy, nephrostogram Anesthesia: GETA Surgeon: TIFFANIE LYNN Estimated blood loss: minimal Condition: stable - Hospital course Hospital course: adarsh maier, alexanderorbid - Disposition Condition at discharge: Stable Disposition: DC-01 TO HOME OR SELFCARE Short Stay Discharge Plan Follow up with: ADA TERRY MD [Primary Care Provider] - 7 Days
[2019-02-10] MEDS ORDERED: ZOFRAN ONE (11:21)
[2019-02-10] MEDS ORDERED: XYLOCAINE MPF 2% ONE (11:21)
[2019-02-10] MEDS ORDERED: DECADRON ONE (11:21)
[2019-02-10] MEDS ORDERED: NEO SYNEPHRINE/NS Syringe(OR USE) IV ONE (11:21)
--- NOTE | 2019-02-10 11:27 | Operative Report ---
PREOPERATIVE DIAGNOSIS: Left mid ureteral stone and stricture, left ureteral stone approximately 5 mm and stricture. POSTOPERATIVE DIAGNOSIS: Left mid ureteral stone and stricture, left ureteral stone approximately 5 mm and stricture. PROCEDURE: Left extracorporal shock wave lithotripsy, left nephrostogram, cystoscopy, left retrograde pyelogram, and ureteroscopy. SURGEON: Miguel Newsome MD ANESTHESIA: General. ESTIMATED BLOOD LOSS: Minimal. FLUIDS: Crystalloid. COMPLICATIONS: No complications. INDICATIONS: This 68-year-old female with known history of urolithiasis, status post metabolic abnormality due to gastric bypass surgery in the remote past. She has had stones requiring stent placement and multiple lithotripsies. Her stent was out on the left side. She developed hydronephrosis requiring a nephrostomy tube placement. We have been unable to place a stent via nephrostomy and attempts at lithotripsy and stent placement today. DESCRIPTION OF PROCEDURE: The patient was taken to the operative suite, placed in a supine position. After adequate general anesthesia, her stone was localized in 2 planes using fluoroscopy. Extracorporal shock wave lithotripsy was administered in maximum kV of 9 and 2500 shocks. I could see some fragmentation of the stone and then she was placed in a dorsal lithotomy position, prepped, and draped. Pancystoscopy was performed. Obvious stent in the right ureter. A retrograde pyelogram could not completely visualize the upper collecting system. 0.035 Glidewire was attempted to pass and could not advance past the level of obstruction as well. Rigid ureteroscopy was performed. There was significant edema. Multiple attempts to place a wire was unsuccessful. Then, retrograde from the bladder side and a nephrostogram from the upper side revealed there is a gap of approximately 1 cm. At this point, the left nephrostomy tube opened. She was extubated and taken to recovery room. She will go home on Macrobid, [place], and Zofran. JOB# [id number] [facility]
[2019-02-10] MEDS ORDERED: NORCO 10/325 PO PRN (11:57)
[2019-02-10] MEDS ORDERED: NORCO 10/325 ONE (11:59)
[2019-02-10 12:32] VITALS: BP 156/75
== END 2019-02-10 07:05 | disposition home or self-care (01) ==
LOC: OR 07:04
PROVIDERS: ATTEND Urology
DX: N13.2 Hydronephrosis with renal and ureteral calculous obstruction (principal); N13.1 Hydronephrosis with ureteral stricture, not elsewhere classified; I12.9 Hypertensive chronic kidney disease with stage 1 through stage 4 chronic kidney disease, or unspecified chronic kidney disease; E11.22 Type 2 diabetes mellitus with diabetic chronic kidney disease; N18.9 Chronic kidney disease, unspecified; G47.33 Obstructive sleep apnea (adult) (pediatric); D64.9 Anemia, unspecified; I42.9 Cardiomyopathy, unspecified; I48.91 Unspecified atrial fibrillation; M19.90 Unspecified osteoarthritis, unspecified site; F32.9 Major depressive disorder, single episode, unspecified; F41.9 Anxiety disorder, unspecified; K21.9 Gastro-esophageal reflux disease without esophagitis; I25.10 Atherosclerotic heart disease of native coronary artery without angina pectoris; Z98.890 Other specified postprocedural states; Z79.899 Other long term (current) drug therapy; Z88.2 Allergy status to sulfonamides; Z79.4 Long term (current) use of insulin; Z87.891 Personal history of nicotine dependence; Z68.31 Body mass index [BMI] 31.0-31.9, adult; Z86.718 Personal history of other venous thrombosis and embolism; Z96.0 Presence of urogenital implants; Z87.440 Personal history of urinary (tract) infections; Z98.49 Cataract extraction status, unspecified eye; Z95.0 Presence of cardiac pacemaker; Z90.710 Acquired absence of both cervix and uterus; Z98.51 Tubal ligation status; Z91.81 History of falling; Z88.8 Allergy status to other drugs, medicaments and biological substances
CPT/HCPCS: 50431; 50590; 52351; 82962; A4217; J1100; J2250; J2370; J2405; J2704; J3010; J7120; Q9967; C1769; C2617

== ENCOUNTER 2019-03-03 09:17 | Day surgery (SDC) | payer OTHER, MEDICARE ==
[~2019-03-03 09:17] MED LIST changes: +ANCEF/STERILE WATER 2 GM/20 ML IV NR; -FLAGYL 500 MG/100 ML 500 MG/100 ML BAG IV NR; -OMNIPAQUE (300 MG) IR ONE; -WATER FOR IRRIG STERILE IR ONE
[2019-03-03] MEDS ORDERED: ZOFRAN IV PRN (09:58)
[2019-03-03] MEDS ORDERED: LACTATED RINGERS 1,000 ML IV SCH (10:00)
--- NOTE | 2019-03-03 10:03 | Anesthesia Day of Surgery ---
Anesthesia Day of Surgery - Day of Surgery Patient Examined: Yes Patient H&P Reviewed: Yes Patient is NPO: Yes Beta Blockers: No (Stopped Corgard last Thursday)
--- NOTE | 2019-03-03 10:06 | Anesthesia Consultation ---
Anesthesia Consult and Med Hx Date of service: 03/03/19 - Airway Anesthetic Teeth Evaluation: Good, Dentures ROM Head & Neck: Adequate Mental/Hyoid Distance: Adequate Mallampati Class: Class II Intubation Access Assessment: Good - Pre-Operative Health Status ASA Pre-Surgery Classification: ASA3 - Pulmonary Hx Smoking: Yes (STOPPED 1976) Hx Asthma: No Hx Respiratory Symptoms: No SOB: Yes (SOB) COPD: No Hx Sleep Apnea: Yes (DX SLEEP APNEA WITH NO CPAP USE) - Cardiovascular System Hx Hypertension: Yes (X 7 YRS) Hx Coronary Artery Disease: Yes Hx Heart Attack/AMI: No Hx Percutaneous Transluminal Coronary Angioplasty (PTCA): No Hx Cardia Arrhythmia: Yes (pA-fib) Hx Pacemaker: Yes (patient reports that she is not pacer dependent) - Central Nervous System Hx Seizures: No CVA: No - Gastrointestinal Hx Ulcer: No (S/P gastric bypass) Hx Gastroesophageal Reflux Disease: Yes (well controlled) - Endocrine Hx Renal Disease: Yes (CKD) Hx Liver Disease: No Hx Insulin Dependent Diabetes: Yes (insulin prn for glucose >200. Reports no recent insulin use.) Hx Thyroid Disease: No - Hematic Hx Anemia: Yes - Other Systems Hx Cancer: No
[2019-03-03] MEDS ORDERED: DIPRIVAN 10 MG/ML IV ONE (11:04)
[2019-03-03] MEDS ORDERED: SUBLIMAZE ONE ×2 (11:04→13:33)
[2019-03-03 11:11] LABS: Basophils % (Auto) 0.7 % (0.0-1.8); Eosinophils # (Auto) 0.1 K/mm3 (0.0-0.4); Hematocrit 30.8 % (30.3-42.9); Hemoglobin 10.3 gm/dl (10.1-14.3); Lymphocytes # (Auto) 0.7 K/mm3 (1.2-5.4); Lymphocytes % (Auto) 16.2 % (13.4-35.0); Mean Corpuscular HGB Conc 33 % (30-34); Mean Corpuscular Volume 94 fl (79-97); Monocytes # (Auto) 0.4 K/mm3 (0.0-0.8); Monocytes % (Auto) 9.5 % (0.0-7.3); Platelet Count 202 K/mm3 (140-440); Red Blood Count 3.28 M/mm3 (3.65-5.03); Red Cell Distribution Width 17.4 % (13.2-15.2)
[2019-03-03 11:27] LABS: Calcium 8.6 mg/dL (8.4-10.2)
[2019-03-03] MEDS ORDERED: OMNIPAQUE 300 MG/50 ML (CATH LAB) IV ONE (11:58)
[2019-03-03] MEDS ORDERED: XYLOCAINE MPF 2% ONE (13:27)
[2019-03-03] MEDS ORDERED: ZOFRAN ONE (13:27)
--- NOTE | 2019-03-03 13:27 | Short Stay Summary ---
Short Stay Documentation Date of service: 03/03/19 - History H&P: obtained from office - Allergies and Medications Current Medications: Allergies Sulfa (Sulfonamide Antibiotics) Allergy (Verified 09/03/18 11:09) Itching, VOMITING adhesive tape Adverse Reaction (Verified 02/01/19 16:43) SKIN IRRITATION hydromorphone HCl [From Dilaudid] Adverse Reaction (Verified 09/14/18 14:07) HALLUCINATIONS,confusion oxycodone [From Percocet] Adverse Reaction (Verified 09/03/18 11:09) Itching BANDAIDS Adverse Reaction (Uncoded 09/03/18 11:09) SKIN IRRITATION Home Medications Medication Instructions Recorded Confirmed Last Taken Type Nadolol [Corgard] 40 mg PO DAILY tablet 12/10/15 02/25/19 02/09/19 Rx Mirabegron [Myrbetriq] 50 mg PO QDAY 09/19/16 03/03/19 03/02/19 09:00 History Insulin Detemir [Levemir Flextouch] 1 unit SQ QHS PRN 01/28/17 02/25/19 06/22/18 History Pantoprazole [Protonix] 40 mg PO QDAY 01/28/17 03/03/19 03/02/19 09:00 History ALPRAZolam [Xanax TAB] 1 mg PO PRN PRN 06/29/17 03/03/19 03/02/19 20:00 History Clopidogrel Bisulfate [Plavix] 75 mg PO DAILY 06/29/17 03/03/19 02/25/19 09:00 History Potassium Citrate (Nf) [Urocit K 5] 10 meq PO BID 06/29/17 03/03/19 03/02/19 17:00 History AtorvaSTATin [Lipitor] 20 mg PO QHS 04/16/18 03/03/19 03/02/19 20:00 History Ferrous Sulfate [Iron] 325 mg PO DAILY 04/16/18 03/03/19 03/02/19 09:00 History amLODIPine [Norvasc] 5 mg PO DAILY 04/16/18 03/03/19 02/24/19 09:00 History Ondansetron [Zofran Odt] 4 mg PO Q4HR PRN #20 tab.rapdis 12/01/18 02/25/19 02/09/19 Rx HYDROcodone/APAP 5-325 [[place] 1 - 2 each PO Q6HR PRN #20 tablet 01/06/19 03/03/19 03/02/19 17:00 Rx 5/325] levoFLOXacin [Levaquin TAB] 500 mg PO QDAY #7 tablet 01/06/19 02/25/19 02/09/19 Rx Active Medications Cefazolin Sodium (Ancef/Sterile Water 2 Gm/20 Ml) 2 gm IV PREOP NR Stop: 03/03/19 23:59 Fentanyl (Sublimaze) 50 mcg IV Q5MIN PRN PRN Reason: Pain , Severe (7-10) Stop: 03/03/19 20:00 Lactated Ringer's (Lactated Ringers) 1,000 mls @ 125 mls/hr IV DIRECT DIONISIO Last Admin: 03/03/19 11:15 Dose: 125 mls/hr Documented by: Ondansetron HCl (Zofran) 4 mg IV ONCE PRN PRN Reason: Nausea And Vomiting - Brief post op/procedure progress note Date of procedure: 03/03/19 Pre-op diagnosis: stones Post-op diagnosis: same Procedure: cysto, rt stent exchange, left eswl, ureteroscopy balloon stricture Anesthesia: GETA Surgeon: TIFFANIE LYNN Condition: stable - Hospital course Hospital course: adarsh maier macrobid on chart - Disposition Condition at discharge: Stable Disposition: DC-01 TO HOME OR SELFCARE Short Stay Discharge Plan Follow up with: ADA TERRY MD [Primary Care Provider] - 7 Days
[2019-03-03] MEDS: SUBLIMAZE IV PRN ×2 (13:55→14:15)
--- NOTE | 2019-03-03 14:47 | Operative Report ---
PREOPERATIVE DIAGNOSES: Bilateral hydronephrosis, left ureteral stone, left ureteral stricture, complicated. PROCEDURE: Cystoscopy, right double-J stent exchange (6-[place] 24 cm), left extracorporal shock wave lithotripsy, left ureteroscopy, balloon dilatation of stricture, attempted stent placement and nephrostogram. SURGEON: Miguel Newsome MD ANESTHESIA: General. ESTIMATED BLOOD LOSS: Minimal. FLUIDS: Crystalloid. COMPLICATIONS: No complications. INDICATIONS: This patient is well known to our service, complicated history with bariatric surgery, metabolic abnormalities, and recurrent stones. She has been managed with bilateral stent placement. Stent was removed on the left and she developed a stricture, which she has had for years and a stone, unable to replace the stent. She has had several nephrostomy tubes at another institution. She presents now for lithotripsy and placement of stent. DESCRIPTION OF PROCEDURE: The patient was taken to the operative suite, placed in a supine position, after adequate general anesthesia, placed in a placed in a supine position. Her stone was localized in 2 planes with the aid of the nephrostogram. Approximately 80 mL was injected into a hydronephrotic kidney, tapered down to approximately L4. Extracorporal shock wave lithotripsy was administered in maximum kV of 7 and 2500 shocks, appeared to have some breakup of the stone. At that point, she was placed in a dorsal lithotomy position. Pancystourethroscopy was performed. A stent could be appreciated on the right side. A 0.035 Glidewire was placed up the right ureter. Stent was removed and exchanged with a 6-[place] 22 cm double-J stent with a short internal string. A wire was placed up the left ureter. We could see dye in the upper ureter with a segment of about 1 cm that was stenotic. Ureteroscopy was performed. I was able to advance the scope. The wire passed the first area of stenosis and appeared to be a secondary. This was ballooned dilated with a 4 cm balloon. I then did ureteroscopy and advance a little further, however, now there was bleeding and it was difficult to see and therefore, I aborted. Bladder was drained. She was extubated and taken to recovery room. She will go home on Macrobid, [place], and Zofran. We will discuss next steps in the office. JOB# [id number] MICHAEL/MICHAEL
[2019-03-03] MEDS ORDERED: NORCO 5/325 PO PRN (15:06)
[2019-03-03 16:09] VITALS: BP 132/70
== END 2019-03-03 15:50 | disposition home or self-care (01) ==
LOC: OR 09:17
PROVIDERS: ATTEND Urology
DX: N13.2 Hydronephrosis with renal and ureteral calculous obstruction (principal); N13.1 Hydronephrosis with ureteral stricture, not elsewhere classified; I12.9 Hypertensive chronic kidney disease with stage 1 through stage 4 chronic kidney disease, or unspecified chronic kidney disease; E11.22 Type 2 diabetes mellitus with diabetic chronic kidney disease; D64.9 Anemia, unspecified; E66.9 Obesity, unspecified; I25.10 Atherosclerotic heart disease of native coronary artery without angina pectoris; E78.00 Pure hypercholesterolemia, unspecified; G47.30 Sleep apnea, unspecified; K21.9 Gastro-esophageal reflux disease without esophagitis; M19.90 Unspecified osteoarthritis, unspecified site; Z91.81 History of falling; Z88.2 Allergy status to sulfonamides; Z79.899 Other long term (current) drug therapy; Z79.4 Long term (current) use of insulin; Z87.891 Personal history of nicotine dependence; Z87.440 Personal history of urinary (tract) infections; Z96.0 Presence of urogenital implants; Z98.49 Cataract extraction status, unspecified eye; Z95.0 Presence of cardiac pacemaker; Z98.890 Other specified postprocedural states; Z88.8 Allergy status to other drugs, medicaments and biological substances; Z68.38 Body mass index [BMI] 38.0-38.9, adult
CPT/HCPCS: 36415; 50430; 50590; 52332; 52344; 80048; 82962; 85025; C1726; C1758; C1769; C2617; J0690; J2405; J2704; J3010; J7120; Q9967

== ENCOUNTER 2019-03-31 06:28 | Day surgery (SDC) | payer OTHER, MEDICARE ==
[~2019-03-31 06:28] MED LIST changes: -ANCEF/STERILE WATER 2 GM/20 ML IV NR; +GENTAMICIN/NS 80 MG/100 ML 100 ML IV SCH
[2019-03-31] MEDS ORDERED: LACTATED RINGERS 1,000 ML IV SCH (07:30)
[2019-03-31] MEDS ORDERED: LACTATED RINGERS 1,000 ML ONE (07:34)
--- NOTE | 2019-03-31 07:35 | Anesthesia Consultation ---
<CONSTANZASTEVEN STEVENS - Last Filed: 03/31/19 07:32> Anesthesia Consult and Med Hx Date of service: 03/31/19 - Airway Anesthetic Teeth Evaluation: Poor (total of 4 teeth on the bottom), Dentures (upper ) ROM Head & Neck: Adequate Mental/Hyoid Distance: Adequate Mallampati Class: Class III Intubation Access Assessment: Possibly Difficult - Pre-Operative Health Status ASA Pre-Surgery Classification: ASA3 Proposed Anesthetic Plan: MAC - Pulmonary Hx Smoking: Yes (STOPPED 1976) Hx Asthma: No Hx Respiratory Symptoms: No SOB: Yes (SOB) COPD: No Hx Sleep Apnea: Yes (DX SLEEP APNEA WITH NO CPAP USE) - Cardiovascular System Hx Hypertension: Yes (X 7 YRS) Hx Coronary Artery Disease: Yes Hx Heart Attack/AMI: No Hx Percutaneous Transluminal Coronary Angioplasty (PTCA): No Hx Cardia Arrhythmia: Yes (pA-fib) Hx Pacemaker: Yes (patient reports that she is not pacer dependent) - Central Nervous System Hx Seizures: No CVA: No Hx Psychiatric Problems: Yes (anxiety/depression) - Gastrointestinal Hx Ulcer: No (S/P gastric bypass) Hx Gastroesophageal Reflux Disease: Yes (well controlled) - Endocrine Hx Renal Disease: Yes (CKD with kidney stones, nephrostomy) Hx End Stage Renal Disease: No Hx Liver Disease: No Hx Insulin Dependent Diabetes: Yes (insulin prn for glucose >200. Reports no recent insulin use.) Hx Thyroid Disease: No - Hematic Hx Anemia: Yes - Other Systems Hx Cancer: No Hx Obesity: Yes (BMI 38.5, s/p gastric bypass) <MOHAMUD PAYAN - Last Filed: 03/31/19 07:55> Anesthesia Consult and Med Hx - Pulmonary Exam CTA: Yes - Cardiac Exam Cardiac Exam: RRR (tachycardic) - Pre-Anesthesia Comment Pre-Anesthesia Comments: tachycardia to 120s noted on pre-op vitals with normal BP. Did not take beta bernabe this morning. Will check EKG to confirm SR and treat with IV antiarrhythmics.
--- NOTE | 2019-03-31 07:35 | Anesthesia Day of Surgery ---
Anesthesia Day of Surgery - Day of Surgery Patient Examined: Yes Patient H&P Reviewed: Yes Patient is NPO: Yes
[2019-03-31] MEDS ORDERED: LOPRESSOR IV PRN (07:46)
[2019-03-31] MEDS ORDERED: SUBLIMAZE ONE (07:53)
[2019-03-31] MEDS ORDERED: DIPRIVAN 10 MG/ML IV ONE (07:53)
[2019-03-31] MEDS ORDERED: XYLOCAINE MPF 2% ONE (07:54)
[2019-03-31] MEDS ORDERED: VERSED IV NR (08:00)
[2019-03-31] MEDS ORDERED: NACL 0.9% 1000 ML 1,000 ML IV SCH (08:00)
[2019-03-31] MEDS ORDERED: PEPCID IV NR (08:00)
[2019-03-31] MEDS ORDERED: OMNIPAQUE 300 MG/50 ML (CATH LAB) IV ONE (08:44)
[2019-03-31] MEDS ORDERED: WATER FOR IRRIG STERILE IR ONE (09:20)
[2019-03-31] MEDS ORDERED: ZOFRAN ONE (10:39)
--- NOTE | 2019-03-31 10:39 | Short Stay Summary ---
Short Stay Documentation Date of service: 03/31/19 - History H&P: obtained from office - Allergies and Medications Current Medications: Allergies Sulfa (Sulfonamide Antibiotics) Allergy (Verified 09/03/18 11:09) Itching, VOMITING adhesive tape Adverse Reaction (Verified 02/01/19 16:43) SKIN IRRITATION hydromorphone HCl [From Dilaudid] Adverse Reaction (Verified 09/14/18 14:07) HALLUCINATIONS,confusion oxycodone [From Percocet] Adverse Reaction (Verified 09/03/18 11:09) Itching BANDAIDS Adverse Reaction (Uncoded 09/03/18 11:09) SKIN IRRITATION Home Medications Medication Instructions Recorded Confirmed Last Taken Type Nadolol [Corgard] 40 mg PO DAILY tablet 12/10/15 03/31/19 03/17/19 09:00 Rx Mirabegron [Myrbetriq] 50 mg PO QDAY 09/19/16 03/31/19 03/30/19 21:00 History Insulin Detemir [Levemir Flextouch] 1 unit SQ QHS PRN 01/28/17 03/23/19 06/22/18 History Pantoprazole [Protonix] 40 mg PO QDAY 01/28/17 03/31/19 03/30/19 21:00 History ALPRAZolam [Xanax TAB] 1 mg PO PRN PRN 06/29/17 03/23/19 03/02/19 20:00 History Clopidogrel Bisulfate [Plavix] 75 mg PO DAILY 06/29/17 03/31/19 03/25/19 09:00 History Potassium Citrate (Nf) [Urocit K 5] 10 meq PO BID 06/29/17 03/23/19 03/02/19 17:00 History AtorvaSTATin [Lipitor] 20 mg PO QHS 04/16/18 03/31/19 03/30/19 21:00 History Ferrous Sulfate [Iron] 325 mg PO DAILY 04/16/18 03/31/19 03/30/19 09:00 History amLODIPine [Norvasc] 5 mg PO DAILY 04/16/18 03/31/19 03/30/19 21:00 History Ondansetron [Zofran Odt] 4 mg PO Q4HR PRN #20 tab.rapdis 12/01/18 03/23/19 02/09/19 Rx HYDROcodone/APAP 5-325 [[place] 1 - 2 each PO Q6HR PRN #20 tablet 01/06/1903/30/19 21:00 Rx 5/325] levoFLOXacin [Levaquin TAB] 500 mg PO QDAY #7 tablet 01/06/19 03/23/19 02/09/19 Rx Active Medications Famotidine (Pepcid) 20 mg IV PREOP NR Stop: 03/31/19 20:00 Last Admin: 03/31/19 07:55 Dose: 20 mg Documented by: Gentamicin Sulfate/Sodium Chloride (Gentamicin/Ns 80 Mg/100 Ml) 100 mls @ 200 mls/hr IV PREOP DIONISIO Lactated Ringer's (Lactated Ringers) 1,000 mls @ 75 mls/hr IV DIRECT DIONISIO Last Admin: 03/31/19 07:55 Dose: 75 mls/hr Documented by: Metoprolol Tartrate (Lopressor) 2.5 mg IV ONCE PRN PRN Reason: HR >110 Stop: 03/31/19 12:00 Last Admin: 03/31/19 07:55 Dose: 2.5 mg Documented by: Midazolam HCl (Versed) 2 mg IV PREOP NR Stop: 03/31/19 23:59 Last Admin: 03/31/19 08:17 Dose: 2 mg Documented by: - Brief post op/procedure progress note Date of procedure: 03/31/19 Pre-op diagnosis: left ureteral stone, dense left ureteral stricture Post-op diagnosis: same Procedure: cysto, left ESWL, left ureteroscopy, left JJ stent 6Fx 24cm Anesthesia: GETA Surgeon: TIFFANIE LYNN Condition: stable - Hospital course Hospital course: [place] 10 / zofran / macrobid - Disposition Condition at discharge: Stable Disposition: DC-01 TO HOME OR SELFCARE Short Stay Discharge Plan Follow up with: ADA TERRY MD [Primary Care Provider] - 7 Days
[2019-03-31] MEDS ORDERED: NORCO 5/325 PO PRN (11:12)
[2019-03-31] MEDS ORDERED: ZOFRAN ODT PO PRN (11:18)
[2019-03-31] MEDS ORDERED: NORCO 10/325 PO PRN (11:22)
[2019-03-31] MEDS ORDERED: NORCO 10/325 ONE (11:25)
[2019-03-31 12:17] VITALS: BP 145/82
--- NOTE | 2019-03-31 13:38 | Fluoroscopy Report ---
FLUOROSCOPY RETROGRADE UROGRAPHY HISTORY: Left kidney stone DESCRIPTION OF PROCEDURE: 2.1 minutes of fluoroscopy time was provided by radiology during retrograde urography by the urologist. 12 fluoroscopic images are presented. Atomizer Assembler film demonstrates a right ur eteral stent in place. Subsequent images demonstrate left retrograde pyelogram images demonstrate a s tricture in the mid to distal left ureter. Subsequent images demonstrate left ureteroscopy and dilata tion of the stricture was performed. A left ureteral stent was placed which adequately drains the lef t collecting system on the final image. Please correlate with the procedural report as needed. IMPRESSION: Left ureteral stricture dilatation. Left ureteral stent placement. Signer Name: Kiet Contreras Jr, MD Signed: 03/31/2019 1:34 PM Workstation Name: [id number]
--- NOTE | 2019-03-31 13:51 | Operative Report ---
PREOPERATIVE DIAGNOSES: 1. Left impacted ureteral stone. 2. Dense left ureteral stricture, status post nephrostomy. POSTOPERATIVE DIAGNOSES: 1. Left impacted ureteral stone. 2. Dense left ureteral stricture, status post nephrostomy. PROCEDURES: Left extracorporal shock wave lithotripsy, left nephrostogram, ureteroscopy, dilation of ureteral stricture, double-J stent placement (6-[place] 24 cm, staged). SURGEON: Miguel Newsome MD ANESTHESIA: General. ESTIMATED BLOOD LOSS: Minimal. FLUIDS: Crystalloid. COMPLICATIONS: No complications. INDICATIONS: This patient is a 69-year-old female known to my service, had bariatric surgery years ago with resultant recurrent urolithiasis and strictures. She has a right stent, left-sided nephrostomy tube due to a dense stricture and stone, and this is a staged procedure. DESCRIPTION OF PROCEDURE: The patient was taken to the operative suite, placed in a supine position. After adequate general anesthesia, a nephrostogram via the left tube was taken. There was an abrupt blockage at the mid ureter, which had been seen before. We focused on this area with the lithotripter. Extracorporal shock wave lithotripsy was administered with a maximum kV of 9, 1800 shocks. The lithotripter began to malfunction. At that point, we stopped lithotripsy and performed ureteroscopy. The patient was placed in a dorsal lithotomy position, left ureteroscopy was performed. First, retrograde pyelogram was obtained, again abrupt blockage could be appreciated. The gap between the retrograde and antegrade dye was approximately 4 cm. Rigid ureteroscopy, I could see an opening. I was able to cannulate it with the 0.035 Glidewire and advanced; however, I could not put enough, it continued to buckle. I then removed the ureteroscope and inserted an open-ended ureteral catheter over the wire. I was able to apply a little more tension and was able to break through the stricture. Cystoscopy was performed, exchanged the open-ended catheter for a double-J stent, could see good drainage of slightly bloody fluid coming out of the ureter out of the stent. It appeared to be in good position on fluoroscopy. She was extubated. Bladder was drained. She will go home on [place], Macrobid and Zofran. JOB# [id number] [facility]
--- NOTE | 2019-03-31 19:49 | Post Anesthesia Evaluation ---
- Post Anesthesia Evaluation Patient Participated: Yes Airway Patent: Yes Stable Respiratory Function: Yes Nausea/Vomiting: No Temp > 96.8F: Yes Pain Manageable: Yes Adequeate Hydration: Yes Anesthesia Complications: No Block Receding Appropriately: Not Applicable Patient on Ventilator: No
== END 2019-03-31 13:00 | disposition home or self-care (01) ==
LOC: OR 06:28
PROVIDERS: ATTEND Urology
DX: N13.1 Hydronephrosis with ureteral stricture, not elsewhere classified (principal); N13.2 Hydronephrosis with renal and ureteral calculous obstruction; N13.5 Crossing vessel and stricture of ureter without hydronephrosis; I12.9 Hypertensive chronic kidney disease with stage 1 through stage 4 chronic kidney disease, or unspecified chronic kidney disease; E11.22 Type 2 diabetes mellitus with diabetic chronic kidney disease; N18.9 Chronic kidney disease, unspecified; D64.9 Anemia, unspecified; I25.10 Atherosclerotic heart disease of native coronary artery without angina pectoris; G47.33 Obstructive sleep apnea (adult) (pediatric); E78.00 Pure hypercholesterolemia, unspecified; I48.91 Unspecified atrial fibrillation; K21.9 Gastro-esophageal reflux disease without esophagitis; E66.9 Obesity, unspecified; M19.90 Unspecified osteoarthritis, unspecified site; F32.9 Major depressive disorder, single episode, unspecified; F41.9 Anxiety disorder, unspecified; Z88.2 Allergy status to sulfonamides; Z79.899 Other long term (current) drug therapy; Z79.4 Long term (current) use of insulin; Z87.891 Personal history of nicotine dependence; Z98.49 Cataract extraction status, unspecified eye; Z68.38 Body mass index [BMI] 38.0-38.9, adult; Z96.0 Presence of urogenital implants; Z90.710 Acquired absence of both cervix and uterus; Z98.51 Tubal ligation status; Z98.890 Other specified postprocedural states; Z88.8 Allergy status to other drugs, medicaments and biological substances
CPT/HCPCS: 50431; 50590; 52332; 52344; 74420; 82962; 93010; A4217; C1769; C2617; J1580; J2250; J2405; J2704; J3010; J7120; Q9967; 93005; Q0162

== ENCOUNTER 2019-05-24 12:12 | Outpatient (CLI) | payer OTHER, MEDICARE ==
[2019-05-24 12:44] LABS: Hematocrit 34.4 % (30.3-42.9); Hemoglobin 11.2 gm/dl (10.1-14.3); Mean Corpuscular HGB Conc 33 % (30-34); Mean Corpuscular Volume 98 fl (79-97); Platelet Count 300 K/mm3 (140-440); Red Blood Count 3.51 M/mm3 (3.65-5.03)
[2019-05-24 12:45] LABS: Red Cell Distribution Width 22.2 % (13.2-15.2)
[2019-05-24 13:01] LABS: Calcium 8.5 mg/dL (8.4-10.2)
[2019-05-24 13:02] LABS: Bacteria,Urine 4+ /HPF (Negative); Bilirubin,Urine NEG (Negative); Blood,Urine MOD (Negative); Color,Urine Yellow (Yellow); Mucus,Urine FEW /HPF; Urobilinogen,Urine < 2.0 mg/dL (<2.0)
[2019-05-24 13:03] LABS: RBC,Urine > 182.0 /HPF (0.0-6.0); WBC,Urine > 182.0 /HPF (0.0-6.0)
[2019-05-24 14:07] LABS: Creatinine,Urine 67.8 mg/dL (0.1-20.0)
[2019-05-24 14:13] LABS: Protein/Creatinine Ratio,Urine 4.12
== END 2019-05-24 12:13 | disposition home or self-care (01) ==
LOC: LAB 12:12
PROVIDERS: ATTEND Internal Medicine Nephrology
DX: N25.81 Secondary hyperparathyroidism of renal origin (principal); N18.4 Chronic kidney disease, stage 4 (severe); I12.9 Hypertensive chronic kidney disease with stage 1 through stage 4 chronic kidney disease, or unspecified chronic kidney disease; K21.9 Gastro-esophageal reflux disease without esophagitis; I25.10 Atherosclerotic heart disease of native coronary artery without angina pectoris; Z90.710 Acquired absence of both cervix and uterus
CPT/HCPCS: 36415; 80048; 81001; 82570; 83970; 84100; 84156; 85027

== ENCOUNTER 2019-07-20 12:09 | Day surgery (SDC) | payer MEDICARE, OTHER ==
[~2019-07-20 12:09] MED LIST changes: -GENTAMICIN/NS 80 MG/100 ML 100 ML IV SCH; +IOHEXOL 300 MG/ML 50ML IV ONE; +metroNIDAZOLE/NS 500 MG/100 ML 500 MG/100 ML BAG IV NR
[2019-07-20] MEDS ORDERED: fentaNYL 100 MCG/2 ML INJ IV PRN (12:34)
[2019-07-20] MEDS ORDERED: ONDANSETRON 4 MG/2 ML INJ IV PRN (12:34)
--- NOTE | 2019-07-20 12:40 | Anesthesia Consultation ---
Anesthesia Consult and Med Hx Date of service: 07/20/19 - Airway Anesthetic Teeth Evaluation: Poor ROM Head & Neck: Adequate Mental/Hyoid Distance: Adequate Mallampati Class: Class II Intubation Access Assessment: Good - Pre-Operative Health Status ASA Pre-Surgery Classification: ASA3 Proposed Anesthetic Plan: General - Pulmonary Hx Smoking: Yes (STOPPED 1976) Hx Asthma: No Hx Respiratory Symptoms: No SOB: Yes (SOB) COPD: No Hx Sleep Apnea: Yes (DX SLEEP APNEA WITH NO CPAP USE) - Cardiovascular System Hx Hypertension: Yes (X 7 YRS) Hx Coronary Artery Disease: Yes Hx Heart Attack/AMI: No Hx Percutaneous Transluminal Coronary Angioplasty (PTCA): No Hx Cardia Arrhythmia: Yes (pA-fib) Hx Pacemaker: Yes (patient reports that she is not pacer dependent) - Central Nervous System Hx Seizures: No CVA: No Hx Psychiatric Problems: Yes (anxiety/depression) - Gastrointestinal Hx Gastroesophageal Reflux Disease: Yes (well controlled) - Endocrine Hx Renal Disease: Yes (CKD with kidney stones, nephrostomy) Hx End Stage Renal Disease: No Hx Liver Disease: No Hx Insulin Dependent Diabetes: Yes (insulin prn for glucose >200. Reports no recent insulin use.) Hx Thyroid Disease: No - Hematic Hx Anemia: Yes - Other Systems Hx Cancer: No Hx Obesity: Yes (BMI 38.5, s/p gastric bypass)
--- NOTE | 2019-07-20 12:40 | Anesthesia Day of Surgery ---
Anesthesia Day of Surgery - Day of Surgery Patient Examined: Yes Patient H&P Reviewed: Yes Patient is NPO: Yes
[2019-07-20] MEDS ORDERED: PHENYLEPHRINE/NS 1,000 MCG/10 ML SYRINGE (OR USE) IV ONE (13:00)
[2019-07-20] MEDS ORDERED: LACTATED RINGERS 1,000 ML IV SCH (13:00)
[2019-07-20] MEDS ORDERED: IOHEXOL 300 MG/ML 50ML IV ONE (13:10)
[2019-07-20] MEDS ORDERED: LIDOCAINE MPF (2%) 20 MG/1 ML VIAL 5 ML ONE (13:11)
[2019-07-20] MEDS ORDERED: PROPOFOL 200 MG/20 ML VIAL IV ONE (13:12)
[2019-07-20] MEDS ORDERED: fentaNYL 100 MCG/2 ML INJ ONE (13:12)
[2019-07-20] MEDS ORDERED: ceFAZolin/STERILE WATER 2 GM/20 ML SYRINGE IV NR (14:00)
--- NOTE | 2019-07-20 14:00 | Short Stay Summary ---
Short Stay Documentation Date of service: 07/20/19 Narrative H&P: 69 yr old female with bilat hydro, bilat strictures, bilat stone presents for stent exchange - History Past Medical History: diabetes, hypertension, hyperlipidemia Past Surgical History: Other (gastric bypass / several cystos) Social history: single - Allergies and Medications Current Medications: Allergies Sulfa (Sulfonamide Antibiotics) Allergy (Verified 09/03/18 11:09) Itching, VOMITING adhesive tape Adverse Reaction (Verified 02/01/19 16:43) SKIN IRRITATION hydromorphone HCl [From Dilaudid] Adverse Reaction (Verified 09/14/18 14:07) HALLUCINATIONS,confusion oxycodone [From Percocet] Adverse Reaction (Verified 09/03/18 11:09) Itching BANDAIDS Adverse Reaction (Uncoded 09/03/18 11:09) SKIN IRRITATION Home Medications Medication Instructions Recorded Confirmed Last Taken Type Nadolol [Corgard] 40 mg PO DAILY tablet 12/10/15 07/20/19 07/19/19 21:00 Rx Mirabegron [Myrbetriq] 50 mg PO QDAY 09/19/16 07/20/19 07/19/19 21:00 History Insulin Detemir (Nf) [Levemir 1 unit SQ QHS PRN 01/28/17 07/08/19 06/22/18 History Flextouch] Pantoprazole [Protonix] 40 mg PO QDAY 01/28/17 07/20/19 07/19/19 21:00 History ALPRAZolam [Xanax TAB] 1 mg PO PRN PRN 06/29/17 07/08/19 03/02/19 20:00 History Clopidogrel Bisulfate [Plavix] 75 mg PO DAILY 06/29/17 07/20/19 07/12/19 09:00 History Potassium Citrate (Nf) [Urocit K 5] 10 meq PO BID 06/29/17 07/20/19 07/19/19 21:00 History AtorvaSTATin [Lipitor] 20 mg PO QHS 04/16/18 07/20/19 07/19/19 21:00 History Ferrous Sulfate [Iron] 325 mg PO DAILY 04/16/18 07/20/19 07/19/19 21:00 History amLODIPine [Norvasc] 5 mg PO DAILY 04/16/18 07/20/1907/19/19 21:00 History Ondansetron [Zofran Odt] 4 mg PO Q4HR PRN #20 tab.rapdis 12/01/18 07/08/19 02/09/19 Rx HYDROcodone/APAP 5-325 [[place] 1 - 2 each PO Q6HR PRN #20 tablet 01/06/19 07/08/19 03/30/19 21:00 Rx 5/325] Ciprofloxacin HCl [Ciprofloxacin 500 mg PO Q12HR 07/08/19 07/08/19 Unknown History TAB] Metoprolol [Lopressor TAB] 50 mg PO DAILY 07/08/19 07/20/19 07/19/19 21:00 History Active Medications Cefazolin Sodium (Ancef/Sterile Water 2 Gm/20 Ml) 2 gm IV PREOP NR Stop: 07/20/19 23:00 Fentanyl (Sublimaze) 50 mcg IV Q5MIN PRN PRN Reason: Pain , Severe (7-10) Stop: 07/20/19 23:53 Lactated Ringer's (Lactated Ringers) 1,000 mls @ 100 mls/hr IV DIRECT DIONISIO Last Admin: 07/20/19 13:05 Dose: 100 mls/hr Documented by: Ondansetron HCl (Zofran) 4 mg IV ONCE PRN PRN Reason: Nausea And Vomiting - Physical exam General appearance: no acute distress, well-nourished Integumentary: no rash, no growths HEENT: Atraumatic, PERRLA Lungs: Clear to auscultation Heart: Regular rate, No murmurs Gastrointestinal: normal Rectal Exam: deferred Extremities: no ischemia, No edema - Brief post op/procedure progress note Date of procedure: 07/20/19 Pre-op diagnosis: bilat hydro, bilat strictures, bilat stones Post-op diagnosis: same Procedure: cysto, bilat stent exchange----22cm x 6F Anesthesia: GETA Surgeon: TIFFANIE LYNN Pathology: none Condition: stable - Hospital course Hospital course: ultram, [place] 10/325, macrobid on chart - Disposition Condition at discharge: Stable Disposition: DC-01 TO HOME OR SELFCARE Short Stay Discharge Plan Follow up with: ADA TERRY MD [Primary Care Provider] - 7 Days
--- NOTE | 2019-07-20 14:45 | Fluoroscopy Report ---
FLUOROSCOPY RETROGRADE UROGRAPHY HISTORY: Hydronephrosis FINDINGS: 1.8 minutes of fluoroscopy time was provided by radiology during retrograde urography by marshall zhao urologist. 4 fluoroscopic images are presented. The images demonstrate bilateral ureteral stent exc hange. No ureteral filling defect is identified. Please correlate with the procedural report as diana garrido Signer Name: Kiet Contreras Jr, MD Signed: 07/20/2019 2:41 PM Workstation Name: [id number]
--- NOTE | 2019-07-20 14:51 | Operative Report ---
PREOPERATIVE DIAGNOSES: Bilateral hydronephrosis, bilateral ureteral strictures, bilateral ureteral stones, status post bilateral stent placement. PROCEDURE: Cystoscopy, bilateral RPGs, bilateral stent exchange (6-[place] 22 cm with a short internal string). SURGEON: Miguel Newsome MD ANESTHESIA: General. ESTIMATED BLOOD LOSS: Minimal. FLUIDS: Crystalloid. COMPLICATIONS: No complications. INDICATIONS: This patient is a 69-year-old female with complicated history with gastric bypass, left atrophic kidney, diabetes, coronary artery disease, sciatic nerve. As a result of her gastric bypass, she has had chronic urolithiasis that has been refractory to medical management. She has also had ureteral strictures. Attempts to manage this without stents were unsuccessful and resulted in a nephrostomy tube placement and difficulty getting a stent back in. At this point, I discussed with her she will probably require a stent exchange for the rest of her life. Risks, benefits, and complications were explained. The patient agreed to proceed with surgical intervention. DESCRIPTION OF PROCEDURE: The patient was taken to the operative suite, placed in supine position. After adequate general anesthesia, placed in a dorsal lithotomy position, prepped and draped in a sterile fashion. Pancystourethroscopy was performed with 22-[place] Storz cystoscope. Both stents could be appreciated, normal position on fluoroscopy and at cystoscopy. Short string on both sides. Right stent was put out to the meatus. Wire was advanced into the collecting system. Stent was exchanged without difficulty. Similar procedure was performed on the left without difficulty. Bladder was drained. She was extubated and taken to recovery room in stable condition. She will go home on [place] 10/325, Ultram and Macrobid. JOB# [id number] [facility]/NT[facility]
[2019-07-20 15:05] VITALS: BP 108/55
== END 2019-07-20 12:10 | disposition home or self-care (01) ==
LOC: OR 12:09
PROVIDERS: ATTEND Urology
DX: N13.2 Hydronephrosis with renal and ureteral calculous obstruction (principal); N13.1 Hydronephrosis with ureteral stricture, not elsewhere classified; I12.9 Hypertensive chronic kidney disease with stage 1 through stage 4 chronic kidney disease, or unspecified chronic kidney disease; E11.22 Type 2 diabetes mellitus with diabetic chronic kidney disease; N18.9 Chronic kidney disease, unspecified; E66.2 Morbid (severe) obesity with alveolar hypoventilation; D64.9 Anemia, unspecified; I42.9 Cardiomyopathy, unspecified; K21.9 Gastro-esophageal reflux disease without esophagitis; I25.10 Atherosclerotic heart disease of native coronary artery without angina pectoris; M19.90 Unspecified osteoarthritis, unspecified site; F32.9 Major depressive disorder, single episode, unspecified; F41.9 Anxiety disorder, unspecified; Z88.2 Allergy status to sulfonamides; Z88.8 Allergy status to other drugs, medicaments and biological substances; Z79.899 Other long term (current) drug therapy; Z87.891 Personal history of nicotine dependence; Z68.38 Body mass index [BMI] 38.0-38.9, adult; Z96.0 Presence of urogenital implants; Z98.49 Cataract extraction status, unspecified eye; Z95.0 Presence of cardiac pacemaker; Z98.890 Other specified postprocedural states; Z98.51 Tubal ligation status; Z90.710 Acquired absence of both cervix and uterus; Z87.440 Personal history of urinary (tract) infections; Z91.81 History of falling; Z79.4 Long term (current) use of insulin; Z98.84 Bariatric surgery status
CPT/HCPCS: 52332; 74420; 82803; 82962; C1758; C1769; C2617; J2370; J2704; J3010; J7120; Q9967

== ENCOUNTER 2019-07-25 15:27 | Inpatient (IN) | payer OTHER ==
--- NOTE | 2019-07-25 15:40 | Emergency Department Report ---
Blank Doc - Documentation Documentation: 69-year-old female that presents with weakness, fall, and left eyebrow lac. S tated had a syncopal episode. This initial assessment/diagnostic orders/clinical plan/treatment(s) is/are subject to change based on patient's health status, clinical progression and re- assessment by fellow clinical providers in the ED. Further treatment and workup at subsequent clinical providers discretion. Patient/guardians urged not to elope from the ED as their condition may be serious if not clinically assessed and managed. Initial orders include: 1- Patient sent to MAIN ED for further evaluation and treatment 2- labs 3- UA 4- CT head 5- EKG
[2019-07-25 16:41] LABS: Basophils % (Auto) 0.5 % (0.0-1.8); Eosinophils # (Auto) 0.1 K/mm3 (0.0-0.4); Hematocrit 29.6 % (30.3-42.9); Hemoglobin 9.4 gm/dl (10.1-14.3); Lymphocytes # (Auto) 1.3 K/mm3 (1.2-5.4); Lymphocytes % (Auto) 20.1 % (13.4-35.0); Mean Corpuscular HGB Conc 32 % (30-34); Mean Corpuscular Volume 98 fl (79-97); Monocytes # (Auto) 0.7 K/mm3 (0.0-0.8); Monocytes % (Auto) 10.3 % (0.0-7.3); Platelet Count 161 K/mm3 (140-440); Red Blood Count 3.02 M/mm3 (3.65-5.03)
[2019-07-25 16:53] LABS: Albumin 2.6 g/dL (3.9-5); BUN/Creatinine Ratio 8; Blood Urea Nitrogen 29 mg/dL (7-17); Calcium 7.8 mg/dL (8.4-10.2); Hemolysis Index 1
[2019-07-25 16:54] LABS: Alanine Aminotransferase < 5 units/L (7-56)
[2019-07-25 17:04] LABS: Bilirubin,Urine NEG (Negative); Blood,Urine LG (Negative); Color,Urine Yellow (Yellow); Mucus,Urine FEW /HPF; Urobilinogen,Urine < 2.0 mg/dL (<2.0)
[2019-07-25 17:34] LABS: INR 1.13 (0.87-1.13); Partial Thromboplastin Time 28.2 Sec. (24.2-36.6)
--- NOTE | 2019-07-25 17:49 | Cat Scan Report ---
NONENHANCED CT SCAN OF THE HEAD: INDICATION / CLINICAL INFORMATION: 69 years Female; fall/syncope. TECHNIQUE: Routine CT head without contrast. All CT scans at this location are performed using CT dos e reduction for ALARA by means of automated exposure control. COMPARISON: None. FINDINGS: BRAIN / INTRACRANIAL CONTENTS: No acute hemorrhage, mass effect, midline shift, hydrocephalus, or acu te, large territorial infarct. No chronic infarct or focal atrophy. Normal brain volume and ventricul ar/sulcal size for age. Periventricular and deep hemispheric white matter are normal. CRANIOCERVICAL JUNCTION: No significant abnormality. ORBITS: Both ocular globes are normal. Soft tissue swelling is seen over the left upper eyelid SINUSES / MASTOIDS: No significant abnormality of the visualized paranasal sinuses or mastoid air andreea ls. ADDITIONAL FINDINGS: None. IMPRESSION: I do not see intracranial sequela from the trauma Soft tissue swelling over the left upper eyelid Signer Name: Linda Cha MD Signed: 07/25/2019 5:44 PM Workstation Name: [id number]
--- NOTE | 2019-07-25 17:53 | Cat Scan Report ---
Exam: CT cervical spine History: fall/syncope; Technique: Contiguous thin cut axial images obtained through the cervical spine. Sagittal and muro l reconstructions performed by the technologist. All CT scans at this location are performed using CT dose reduction for ALARA by means of automated exposure control. Findings: No priors. There is no evidence of fracture or traumatic subluxation. Normal prevertebral space; no fracture inv olving the bony canal Vertebral bodies are normal in height and alignment. Degenerative spondylolisthesis seen at C2-C3 disc level.: Bony spur in the left neural foramen; left foraminal stenoses Broad-based bony spur and superimposed disc protrusion at C3-C4, C4-C5, C5-C6 and C6-C7 disc levels n arrowing the neural foramina No significant degenerative change seen in the uncinate or facet joints. No significant canal stenosi s or osseous foraminal narrowing. Surrounding soft tissues are grossly normal. Impression: No signs of acute bony trauma to the cervical spine. Combination of broad-based bony spur and soft disc protrusions at C3-C4, C4-C5, C5-C6 and C6-C7 disc levels Signer Name: Linda Cha MD Signed: 07/25/2019 5:49 PM Workstation Name: [id number]
[2019-07-25] MEDS ORDERED: SODIUM CHLORIDE 0.9% 1000 ML 1,000 ML IV ONE (20:14)
[2019-07-25] MEDS ORDERED: ONDANSETRON 4 MG/2 ML INJ IV ONE (20:14)
[2019-07-25] MEDS ORDERED: cefTRIAXone/NS 1 GM/50 ML 1 GM/50 ML BAG IV ONE (20:14)
--- NOTE | 2019-07-25 20:19 | Emergency Department Report ---
ED General Adult HPI - General Chief complaint: Fall Stated complaint: FALL INJURY/WEAK/GASH ON RT EYE Time Seen by Provider: 07/25/19 15:38 Source: patient, family Mode of arrival: Wheelchair Limitations: No Limitations - History of Present Illness Initial comments: Patient is 69 years old female with history of hypertension, diabetes, chronic kidney disease and history of kidney stones. Patient prior to the emergency room by her son for evaluation of fall last night with injury to the head and to the left eye. Patient stated that she get dizzy and fell. Patient reported that she has been having diarrhea for the last 6 days. Patient described her diarrhea as watery diarrhea with no blood or mucus. Patient also denied any fever or chills. Patient denied any chest pain, shortness of breath or abdominal pain. - Related Data Home Medications Medication Instructions Recorded Confirmed Last Taken Mirabegron [Myrbetriq] 50 mg PO QDAY 09/19/16 07/20/19 07/19/19 21:00 Insulin Detemir (Nf) [Levemir 1 unit SQ QHS PRN 01/28/17 07/08/19 06/22/18 Flextouch] Pantoprazole [Protonix] 40 mg PO QDAY 01/28/17 07/20/19 07/19/19 21:00 ALPRAZolam [Xanax TAB] 1 mg PO PRN PRN 06/29/17 07/08/19 03/02/19 20:00 Clopidogrel Bisulfate [Plavix] 75 mg PO DAILY 06/29/17 07/20/19 07/12/19 09:00 Potassium Citrate (Nf) [Urocit K 5] 10 meq PO BID 06/29/17 07/20/19 07/19/19 21:00 AtorvaSTATin [Lipitor] 20 mg PO QHS 04/16/18 07/20/19 07/19/19 21:00 Ferrous Sulfate [Iron] 325 mg PO DAILY 04/16/18 07/20/19 07/19/19 21:00 amLODIPine [Norvasc] 5 mg PO DAILY 04/16/18 07/20/19 07/19/19 21:00 Ciprofloxacin HCl [Ciprofloxacin 500 mg PO Q12HR 07/08/19 07/08/19 Unknown TAB] Metoprolol [Lopressor TAB] 50 mg PO DAILY 07/08/19 07/20/1907/19/19 21:00 Previous Rx's Medication Instructions Recorded Last Taken Type Nadolol [Corgard] 40 mg PO DAILY tablet 12/10/15 07/19/19 21:00 Rx Ondansetron [Zofran Odt] 4 mg PO Q4HR PRN #20 tab.rapdis 12/01/18 02/09/19 Rx HYDROcodone/APAP 5-325 [[place] 1 - 2 each PO Q6HR PRN #20 tablet 01/06/19 03/30/19 21:00 Rx 5/325] Allergies Allergy/AdvReac Type Severity Reaction Status Date / Time Sulfa (Sulfonamide Allergy Itching, Verified 09/03/18 11:09 Antibiotics) VOMITING adhesive tape AdvReac SKIN Verified 02/01/19 16:43 IRRITATION hydromorphone HCl AdvReac HALLUCINATI Verified 09/14/18 14:07 [From Dilaudid] ONS,confusi on oxycodone [From Percocet] AdvReac Itching Verified 09/03/18 11:09 BANDAIDS AdvReac SKIN Uncoded 09/03/18 11:09 IRRITATION ED Review of Systems ROS: Stated complaint: FALL INJURY/WEAK/GASH ON RT EYE Other details as noted in HPI Comment: All other systems reviewed and negative Constitutional: denies: chills, fever Respiratory: denies: cough, shortness of breath, SOB with exertion, wheezing Cardiovascular: denies: chest pain, palpitations Gastrointestinal: nausea, diarrhea. denies: abdominal pain, vomiting, constipation, hematemesis, melena, hematochezia Neurological: weakness (generalized weakness). denies: headache Psychiatric: denies: depression ED Past Medical Hx - Past Medical History Previous Medical History?: Yes Hx Hypertension: Yes (X 7 YRS) Hx Heart Attack/AMI: No Hx Diabetes: Yes (type 2- TAKES INSULIN ONLY IF BS IG GREATER THAN 200) Hx Deep Vein Thrombosis: Yes (RT ARM 2013) Hx GERD: Yes Hx Liver Disease: No Hx Renal Disease: Yes (CKD with kidney stones, nephrostomy) Hx Arthritis: Yes Hx Seizures: No Hx Kidney Stones: Yes (HX RETAINED STENT) Hx Asthma: No Hx COPD: No Hx HIV: No Additional medical history: nephrostomy,kidney stones,kidney stents - Surgical History Hx Coronary Stent: No Hx Pacemaker: Yes (patient reports that she is not pacer dependent) Additional Surgical History: HYSTERECTOMY. HERNIA REPAIR - Social History Smoking Status: Never Smoker Substance Use Type: None - Medications Home Medications: Home Medications Medication Instructions Recorded Confirmed Last Taken Type Nadolol [Corgard] 40 mg PO DAILY tablet 12/10/15 07/20/19 07/19/19 21:00 Rx Mirabegron [Myrbetriq] 50 mg PO QDAY 09/19/16 07/20/19 07/19/19 21:00 History Insulin Detemir (Nf) [Levemir 1 unit SQ QHS PRN 01/28/17 07/08/19 06/22/18 History Flextouch] Pantoprazole [Protonix] 40 mg PO QDAY 01/28/17 07/20/19 07/19/19 21:00 History ALPRAZolam [Xanax TAB] 1 mg PO PRN PRN 06/29/17 07/08/19 03/02/19 20:00 History Clopidogrel Bisulfate [Plavix] 75 mg PO DAILY 06/29/17 07/20/19 07/12/19 09:00 History Potassium Citrate (Nf) [Urocit K 5] 10 meq PO BID 06/29/17 07/20/19 07/19/19 21:00 History AtorvaSTATin [Lipitor] 20 mg PO QHS 04/16/18 07/20/19 07/19/19 21:00 History Ferrous Sulfate [Iron] 325 mg PO DAILY 04/16/18 07/20/19 07/19/19 21:00 History amLODIPine [Norvasc] 5 mg PO DAILY 04/16/18 07/20/19 07/19/19 21:00 History Ondansetron [Zofran Odt] 4 mg PO Q4HR PRN #20 tab.rapdis 12/01/18 07/08/19 02/09/19 Rx HYDROcodone/APAP 5-325 [[place] 1 - 2 each PO Q6HR PRN #20 tablet 01/06/19 07/08/19 03/30/19 21:00 Rx 5/325] Ciprofloxacin HCl [Ciprofloxacin 500 mg PO Q12HR 07/08/19 07/08/19 Unknown History TAB] Metoprolol [Lopressor TAB] 50 mg PO DAILY 07/08/19 07/20/1919 21:00 History ED Physical Exam - General Limitations: No Limitations General appearance: alert, in no apparent distress - Head Head exam: Present: atraumatic, normocephalic, normal inspection - Eye Eye exam: Present: normal appearance - ENT ENT exam: Present: mucous membranes dry - Neck Neck exam: Present: normal inspection, full ROM. Absent: tenderness, meningismus, lymphadenopathy, thyromegaly - Respiratory Respiratory exam: Present: normal lung sounds bilaterally - Cardiovascular Cardiovascular Exam: Present: regular rate, normal rhythm, normal heart sounds - GI/Abdominal GI/Abdominal exam: Present: soft, normal bowel sounds. Absent: distended, tenderness, guarding, rebound, rigid, mass, bruit, pulsatile mass, hernia - Extremities Exam Extremities exam: Present: normal inspection, full ROM, normal capillary refill. Absent: pedal edema, calf tenderness - Back Exam Back exam: Present: normal inspection, full ROM. Absent: CVA tenderness (R), CVA tenderness (L), muscle spasm, paraspinal tenderness, vertebral tenderness - Neurological Exam Neurological exam: Present: alert, oriented X3, CN II-XII intact - Psychiatric Psychiatric exam: Present: normal mood - Skin Skin exam: Present: warm, intact, normal color ED Course Vital Signs 07/25/19 15:43 Temperature 98.8 F Pulse Rate 89 Respiratory 18 Rate Blood Pressure 102/65 O2 Sat by Pulse 100 Oximetry ED Medical Decision Making - Lab Data Result diagrams: 07/25/19 16:04 07/25/19 16:04 - EKG Data -: EKG Interpreted by Md EKG shows normal: sinus rhythm Rate: normal - EKG Data Interpretation: no acute changes - Radiology Data Radiology results: report reviewed - Medical Decision Making Patient is 69 years old female with history of hypertension, diabetes, chronic kidney disease and history of kidney stones. Patient prior to the emergency room by her son for evaluation of fall last night with injury to the head and to the left eye. Patient stated that she get dizzy and fell. Patient reported that she has been having diarrhea for the last 6 days. Patient described her di arrhea as watery diarrhea with no blood or mucus. Patient also denied any fever or chills. Patient denied any chest pain, shortness of breath or abdominal pain. Patient CT brain, CT cervical spine is negative for acute finding. Labs reviewed and showed a significant elevation in patient creatinine. Patient is in acute on chronic renal failure most likely secondary to dehydration secondary to diarrhea. Patient started on normal saline and given Zofran. I discussed the patient was Dr. Clark, he agreed to admit the patient to medical service for further management. Critical Care Time: Yes Critical care time in (mins) excluding proc time.: 30 Critical care attestation.: If time is entered above; I have spent that time in minutes in the direct care of this critically ill patient, excluding procedure time. ED Disposition Clinical Impression: UTI (urinary tract infection), Acute on chronic renal failure, Dizziness, Dehydration, Head injury Disposition: 09 OP ADMIT IP TO THIS HOSP Is pt being admited?: Yes Condition: Stable Referrals: PRIMARY CARE, [Primary Care Provider] - 3-5 Days
[2019-07-26] MEDS: SODIUM CHLORIDE 0.9% 1000 ML 1,000 ML IV SCH ×2 (02:00→19:59)
[2019-07-26 05:35] LABS: Basophils % (Auto) 0.7 % (0.0-1.8); Eosinophils # (Auto) 0.2 K/mm3 (0.0-0.4); Eosinophils % (Auto) 3.9 % (0.0-4.3); Hematocrit 27.6 % (30.3-42.9); Hemoglobin 8.6 gm/dl (10.1-14.3); Lymphocytes # (Auto) 1.2 K/mm3 (1.2-5.4); Mean Corpuscular HGB Conc 31 % (30-34); Mean Corpuscular Volume 100 fl (79-97); Monocytes # (Auto) 0.6 K/mm3 (0.0-0.8); Monocytes % (Auto) 12.3 % (0.0-7.3); Platelet Count 136 K/mm3 (140-440); Red Blood Count 2.76 M/mm3 (3.65-5.03); Red Cell Distribution Width 18.2 % (13.2-15.2)
[2019-07-26 05:41] LABS: INR 1.11 (0.87-1.13)
[2019-07-26 05:42] LABS: Partial Thromboplastin Time 35.5 Sec. (24.2-36.6)
--- NOTE | 2019-07-26 05:49 | History and Physical Report ---
History of Present Illness Date of examination: 07/25/19 Date of admission: 07/25/19 21:46 Chief complaint: Diarrhea History of present illness: Patient is a 69-year-old female with known history of hypertension, diabetes mellitus, history of kidney stones, chronic kidney disease presenting to the emergency room complaining of diarrhea which has been ongoing for the past few days. She also had a fall about 24 hours ago while she felt dizzy. She denies any loss of consciousness she denies any fever or chills, no nausea or vomiting. She denies any sick contacts and denies any recent travel. Past History Past Medical History: other (Renal stone, chronic kidney disease) Past Surgical History: Other (Kidney stents, gastric bypass surgery, pacemaker placement.) Social history: no significant social history Family history: diabetes (Diabetes mellitus in sister), other (History of heart disease in parents) Medications and Allergies Allergies Allergy/AdvReac Type Severity Reaction Status Date / Time Sulfa (Sulfonamide Allergy Itching, Verified 09/03/18 11:09 Antibiotics) VOMITING adhesive tape AdvReac SKIN Verified 02/01/19 16:43 IRRITATION hydromorphone HCl AdvReac HALLUCINATI Verified 09/14/18 14:07 [From Dilaudid] ONS,confusi on oxycodone [From Percocet] AdvReac Itching Verified 09/03/18 11:09 BANDAIDS AdvReac SKIN Uncoded 09/03/18 11:09 IRRITATION Home Medications Medication Instructions Recorded Confirmed Last Taken Type Mirabegron [Myrbetriq] 50 mg PO QDAY 09/19/16 07/26/19 07/19/19 21:00 History Insulin Detemir (Nf) [Levemir 1 unit SQ QHS PRN 01/28/17 07/08/19 06/22/18 History Flextouch] Pantoprazole [Protonix] 40 mg PO QDAY 01/28/17 07/26/19 07/19/19 21:00 History ALPRAZolam [Xanax TAB] 1 mg PO PRN PRN 06/29/17 07/08/19 03/02/19 20:00 History Clopidogrel Bisulfate [Plavix] 75 mg PO DAILY 06/29/17 07/20/19 07/12/19 09:00 History Potassium Citrate (Nf) [Urocit K 5] 10 meq PO BID 06/29/17 07/26/19 07/19/19 21:00 History AtorvaSTATin [Lipitor] 20 mg PO QHS 04/16/18 07/26/19 07/19/19 21:00 History Ferrous Sulfate [Iron] 325 mg PO DAILY 04/16/18 07/20/19 07/19/19 21:00 History amLODIPine [Norvasc] 5 mg PO DAILY 04/16/18 07/26/19 07/19/19 21:00 History Ondansetron [Zofran Odt] 4 mg PO Q4HR PRN #20 tab.rapdis 12/01/18 07/26/19 02/09/19 Rx HYDROcodone/APAP 5-325 [[place] 1 - 2 each PO Q6HR PRN #20 tablet 01/06/19 07/26/19 03/30/19 21:00 Rx 5/325] Metoprolol [Lopressor TAB] 50 mg PO DAILY 07/08/19 07/26/19 07/19/19 21:00 History AtorvaSTATin [Lipitor] 20 mg PO QHS 07/26/19 07/26/19 Unknown History HYDROcodone/APAP 10-325 [[place] 1 each PO 07/26/19 07/26/19 Unknown History 10/325] Ondansetron [Zofran ODT TAB] 07/26/19 Unknown History Pantoprazole [Protonix] 40 mg PO BID 07/26/19 07/26/19 Unknown History Active Meds: Active Medications Acetaminophen (Tylenol) 650 mg PO Q4H PRN PRN Reason: Pain MILD(1-3)/Fever >100.5/MANNING Sodium Chloride (Nacl 0.9% 1000 Ml) 1,000 mls @ 125 mls/hr IV DIRECT DIONISIO Last Admin: 07/26/19 02:00 Dose: 125 mls/hr Documented by: Ceftriaxone Sodium (Rocephin/Ns 1 Gm/50 Ml) 1 gm in 50 mls @ 100 mls/hr IV Q24HR DIONISIO; Protocol Ondansetron HCl (Zofran) 4 mg IV Q8H PRN PRN Reason: Nausea And Vomiting Sodium Chloride (Sodium Chloride Flush Syringe 10 Ml) 10 ml IV BID DIONISIO Sodium Chloride (Sodium Chloride Flush Syringe 10 Ml) 10 ml IV PRN PRN PRN Reason: LINE FLUSH Review of Systems Neurological: other (Dizziness) Exam - Constitutional Vitals: Temp Pulse Resp BP Pulse Ox 98.3 F 87 18 99/57 98 07/26/19 03:53 07/26/19 03:53 07/26/19 03:53 07/26/19 03:53 07/26/19 03:53 General appearance: Present: no acute distress - EENT Eyes: Present: PERRL, EOM intact ENT: hearing intact, clear oral mucosa, dentition normal - Neck Neck: Present: supple, normal ROM - Respiratory Respiratory effort: normal Respiratory: bilateral: CTA - Cardiovascular Rhythm: regular Heart Sounds: Present: S1 & S2 - Extremities Extremities: no ischemia, pulses intact, pulses symmetrical, No edema Peripheral Pulses: within normal limits - Abdominal General gastrointestinal: Present: soft, non-tender, non-distended, normal bowel sounds - Integumentary Integumentary: Present: clear, warm, dry, erythema (Erythema and bruises over the left eyebrow and left upper eyelid) - Musculoskeletal Musculoskeletal: strength equal bilaterally - Psychiatric Psychiatric: appropriate mood/affect, intact judgment & insight, cooperative - Neurologic Neurologic: CNII-XII intact, moves all extremities Results - Labs CBC & Chem 7: 07/26/19 04:00 07/25/19 16:04 Labs: Abnormal lab results 07/25/19 07/25/19 07/25/19 Range/Units 16:04 16:04 Unknown RBC 3.02 L (3.65-5.03) M/mm3 Hgb 9.4 L (10.1-14.3) gm/dl Hct 29.6 L (30.3-42.9) % MCV 98 H (79-97) fl RDW 18.0 H (13.2-15.2) % Plt Count (140-440) K/mm3 [place] % (Auto) 10.3 H (0.0-7.3) % Potassium 5.2 H (3.6-5.0) mmol/L Chloride 120.1 H (98-107) mmol/L Carbon Dioxide 16 L (22-30) mmol/L BUN 29 H (7-17) mg/dL Creatinine 3.8 H (0.7-1.2) mg/dL Calcium 7.8 L (8.4-10.2) mg/dL ALT < 5 L (7-56) units/L Alkaline Phosphatase 163 H (35-129) units/L Total Protein 5.7 L (6.3-8.2) g/dL Albumin 2.6 L (3.9-5) g/dL Urine WBC (Auto) 64.0 H (0.0-6.0) /HPF 07/26/19 Range/Units 04:00 RBC 2.76 L (3.65-5.03) M/mm3 Hgb 8.6 L (10.1-14.3) gm/dl Hct 27.6 L (30.3-42.9) % MCV 100 H (79-97) fl RDW 18.2 H (13.2-15.2) % Plt Count 136 L (140-440) K/mm3 [place] % (Auto) 12.3 H (0.0-7.3) % Potassium (3.6-5.0) mmol/L Chloride (98-107) mmol/L Carbon Dioxide (22-30) mmol/L BUN (7-17) mg/dL Creatinine (0.7-1.2) mg/dL Calcium (8.4-10.2) mg/dL ALT (7-56) units/L Alkaline Phosphatase (35-129) units/L Total Protein (6.3-8.2) g/dL Albumin (3.9-5) g/dL Urine WBC (Auto) (0.0-6.0) /HPF Assessment and Plan - Patient Problems (1) Acute on chronic renal failure Current Visit: Yes Status: Acute Plan to address problem: Patient started on IV fluid normal saline we will monitor BUN and creatinine. (2) Dehydration Current Visit: Yes Status: Acute Plan to address problem: Possibly secondary to volume depletion. We will continue on IV fluid. (3) Dizziness Current Visit: Yes Status: Acute Plan to address problem: She had dizziness prior to reports into the emergency room resulting in a fall. Dizziness has since resolved. (4) UTI (urinary tract infection) Current Visit: Yes Status: Acute Plan to address problem: She has been placed on empiric IV antibiotics Rocephin for UTI. (5) Anemia Current Visit: No Status: Acute Plan to address problem: Possibly chronic. We monitor CBC. (6) DVT prophylaxis Current Visit: Yes Status: Acute Plan to address problem: Patient placed on sequential compression device. (7) Full code status Current Visit: Yes Status: Acute
[2019-07-26 05:55] LABS: Calcium 7.1 mg/dL (8.4-10.2)
--- NOTE | 2019-07-26 10:07 | Progress Note ---
Assessment and Plan Assessment and plan: --Syncope Current Visit: Yes Status: Acute Plan to address problem: She had dizziness prior to reports into the emergency room resulting in a fall. Dizziness has since resolved. -- Acute on chronic renal failure Current Visit: Yes Status: Acute Plan to address problem: Patient started on IV fluid normal saline we will monitor BUN and creatinine. -- Dehydration Current Visit: Yes Status: Acute Plan to address problem: Possibly secondary to volume depletion. We will continue on IV fluid. -- UTI (urinary tract infection) Current Visit: Yes Status: Acute Plan to address problem: She has been placed on empiric IV antibiotics Rocephin for UTI. -- Anemia Current Visit: No Status: Acute Plan to address problem: Possibly chronic. We monitor CBC. --Severe mal nutrition/hypoalbuminemia Nutrition supplements and supportive care --DVT prophylaxis Current Visit: Yes Status: Acute Plan to address problem: Patient placed on sequential compression device. -- Full code status Current Visit: Yes Status: Acute Monitor closely and adjust management as needed History Interval history: Patient seen and examined medical records reviewed complains of mild dizziness In mild distress Vital signs noted Hospitalist Physical - Constitutional Vitals: Temp Pulse Resp BP Pulse Ox 98.4 F 95 H 18 106/63 99 07/26/19 08:00 07/26/19 08:00 07/26/19 08:00 07/26/19 08:00 07/26/19 08:00 General appearance: Present: mild distress, well-nourished - EENT Eyes: Present: PERRL, EOM intact - Neck Neck: Present: supple, normal ROM - Respiratory Respiratory effort: normal Respiratory: bilateral: diminished, negative: rales, rhonchi, wheezing - Cardiovascular Rhythm: regular Heart Sounds: Present: S1 & S2 - Extremities Extremities: no ischemia, No edema Peripheral Pulses: within normal limits - Abdominal General gastrointestinal: soft, non-tender, non-distended, normal bowel sounds - Integumentary Integumentary: Present: clear, warm - Psychiatric Psychiatric: appropriate mood/affect, cooperative - Neurologic Neurologic: moves all extremities Results - Labs CBC & Chem 7: 07/26/19 04:00 07/27/19 04:13 Labs: Laboratory Last Values WBC 4.8 K/mm3 (4.5-11.0) 07/26/19 04:00 RBC 2.76 M/mm3 (3.65-5.03) L 07/26/19 04:00 Hgb 8.6 gm/dl (10.1-14.3) L 07/26/19 04:00 Hct 27.6 % (30.3-42.9) L 07/26/19 04:00 MCV 100 fl (79-97) H 07/26/19 04:00 MCH 31 pg (28-32) 07/26/19 04:00 MCHC 31 % (30-34) 07/26/19 04:00 RDW 18.2 % (13.2-15.2) H 07/26/19 04:00 Plt Count 136 K/mm3 (140-440) L 07/26/19 04:00 Lymph % (Auto) 26.0 % (13.4-35.0) 07/26/19 04:00 [place] % (Auto) 12.3 % (0.0-7.3) H 07/26/19 04:00 Eos % (Auto) 3.9 % (0.0-4.3) 07/26/19 04:00 Baso % (Auto) 0.7 % (0.0-1.8) 07/26/19 04:00 Lymph # 1.2 K/mm3 (1.2-5.4) 07/26/19 04:00 [place] # 0.6 K/mm3 (0.0-0.8) 07/26/19 04:00 Eos # 0.2 K/mm3 (0.0-0.4) 07/26/19 04:00 Baso # 0.0 K/mm3 (0.0-0.1) 07/26/19 04:00 Seg Neutrophils % 57.1 % (40.0-70.0) 07/26/19 04:00 Seg Neutrophils # 2.7 K/mm3 (1.8-7.7) 07/26/19 04:00 PT 14.2 Sec. (12.2-14.9) 07/26/19 04:00 INR 1.11 (0.87-1.13) 07/26/19 04:00 APTT 35.5 Sec. (24.2-36.6) 07/26/19 04:00 Sodium 145 mmol/L (137-145) 07/26/19 04:00 Potassium 5.0 mmol/L (3.6-5.0) 07/26/19 04:00 Chloride 124.0 mmol/L (98-107) H 07/26/19 04:00 Carbon Dioxide 12 mmol/L (22-30) L 07/26/19 04:00 Anion Gap 14 mmol/L 07/26/19 04:00 BUN 27 mg/dL (7-17) H 07/26/19 04:00 Creatinine 3.4 mg/dL (0.7-1.2) H 07/26/19 04:00 Estimated GFR 16 ml/min 07/26/19 04:00 BUN/Creatinine Ratio 8 % 07/26/19 04:00 Glucose 79 mg/dL (65-100) 07/26/19 04:00 Calcium 7.1 mg/dL (8.4-10.2) L 07/26/19 04:00 Total Bilirubin 0.20 mg/dL (0.1-1.2) 07/25/19 16:04 AST 16 units/L (5-40) 07/25/19 16:04 ALT < 5 units/L (7-56) L 07/25/19 16:04 Alkaline Phosphatase 163 units/L (35-129) H 07/25/19 16:04 Troponin T < 0.010 ng/mL (0.00-0.029) 07/25/19 20:32 Total Protein 5.7 g/dL (6.3-8.2) L 07/25/19 16:04 Albumin 2.6 g/dL (3.9-5) L 07/25/19 16:04 Albumin/Globulin Ratio 0.8 % 07/25/19 16:04 Urine Color Yellow (Yellow) 07/25/19 Unknown Urine Turbidity Slightly-cloudy (Clear) 07/25/19 Unknown Urine pH 6.0 (5.0-7.0) 07/25/19 Unknown Ur Specific [place] 1.013 (1.003-1.030) 07/25/19 Unknown Urine Protein 100 mg/dl mg/dL (Negative) 07/25/19 Unknown Urine Glucose (UA) Neg mg/dL (Negative) 07/25/19 Unknown Urine Ketones Neg mg/dL (Negative) 07/25/19 Unknown Urine Blood Lg (Negative) 07/25/19 Unknown Urine Nitrite Neg (Negative) 07/25/19 Unknown Urine Bilirubin Neg (Negative) 07/25/19 Unknown Urine Urobilinogen < 2.0 mg/dL (<2.0) 07/25/19 Unknown Ur Leukocyte Esterase Lg (Negative) 07/25/19 Unknown Urine WBC (Auto) 64.0 /HPF (0.0-6.0) H 07/25/19 Unknown Urine RBC (Auto) 88.0 /HPF (0.0-6.0) 07/25/19 Unknown Urine Mucus Few /HPF 07/25/19 Unknown Active Medications - Current Medications Current Medications: Generic Name Dose Route Start Last Admin Trade Name Freq PRN Reason Stop Dose Admin Acetaminophen 650 mg 07/25/19 23:29 Tylenol PO Q4H PRN Pain MILD(1-3)/Fever >100.5/MANNING Sodium Chloride 1,000 mls @ 125 mls/hr 07/25/19 23:30 07/26/19 02:00 Nacl 0.9% 1000 Ml IV 125 mls/hr DIRECT DIONISIO Administration Ceftriaxone Sodium 1 gm in 50 mls @ 100 mls/hr 07/26/19 10:00 Rocephin/Ns 1 Gm/50 Ml IV Q24HR DIONISIO Protocol Ondansetron HCl 4 mg 07/25/19 23:29 Zofran IV Q8H PRN Nausea And Vomiting Sodium Chloride 10 ml 07/26/19 10:00 Sodium Chloride Flush Syringe 10 Ml IV BID DIONISIO Sodium Chloride 10 ml 07/25/19 23:29 Sodium Chloride Flush Syringe 10 Ml IV PRN PRN LINE FLUSH
[2019-07-26] MEDS: cefTRIAXone/NS 1 GM/50 ML 1 GM/50 ML BAG IV SCH (10:19)
--- NOTE | 2019-07-26 13:30 | Ultrasound Report ---
ULTRASOUND RENAL INDICATION / CLINICAL INFORMATION: Acute on chronic renal disease, history of ureteral stone. COMPARISON: CT abdomen pelvis dated 12/01/2018 FINDINGS: RIGHT KIDNEY: Length = 13.1 cm. [normal > 9 cm] - Parenchymal Thickness = 1.3 cm. [normal > 1.5 cm] - Echogenicity: Increased - Hydronephrosis: Mild right hydronephrosis - Cyst or mass: No significant abnormality. - Stones: None seen. LEFT KIDNEY: Length = 9.8 cm. [normal > 9 cm] - Parenchymal Thickness = 2.2 cm. [normal > 1.5 cm] - Echogenicity: Increased - Hydronephrosis: Mild left hydronephrosis - Cyst or mass: No significant abnormality. - Stones: None seen. URINARY BLADDER: No significant abnormality. FREE FLUID: None. ADDITIONAL FINDINGS: None. IMPRESSION: Mild bilateral hydronephrosis is demonstrated. Nonspecific renal parenchymal disease. Signer Name: Kiet Contreras Jr, MD Signed: 07/26/2019 1:26 PM Workstation Name: [id number]
--- NOTE | 2019-07-26 13:53 | Vascular Lab Report ---
VL carotid duplex BILAT INDICATION / CLINICAL INFORMATION: syncope. COMPARISON: None available. FINDINGS: Only mild plaque formation is demonstrated at the bifurcations. Velocity measurements and waveform an alysis indicate less than 50% stenosis of each internal carotid artery, according to Nascet criteria. Normal antegrade flow is demonstrated in both vertebral arteries. IMPRESSION: 1. No hemodynamically significant stenosis. Signer Name: Serafin Narayanan MD Signed: 07/26/2019 1:49 PM Workstation Name: [id number]
[2019-07-26] MEDS: ACETAMINOPHEN 325 MG TAB PO PRN (19:58)
[2019-07-26] MEDS: ONDANSETRON 4 MG/2 ML INJ IV PRN (19:59)
[2019-07-26] MEDS ORDERED: ALPRAZolam 1 MG TAB PO ONE (23:24)
[2019-07-27 05:26] LABS: Calcium 6.5 mg/dL (8.4-10.2)
[2019-07-27] MEDS: SODIUM CHLORIDE 0.9% 1000 ML 1,000 ML IV SCH (06:36)
[2019-07-27] MEDS ORDERED: ALPRAZolam 1 MG TAB PO PRN ×2 (08:47→22:00)
[2019-07-27] MEDS ORDERED: METOPROLOL TARTRATE 50 MG TAB PO SCH (10:00)
[2019-07-27] MEDS ORDERED: PANTOPRAZOLE 40 MG TAB PO SCH (10:00)
[2019-07-27] MEDS: ACETAMINOPHEN 325 MG TAB PO PRN (10:27)
[2019-07-27] MEDS: ONDANSETRON 4 MG/2 ML INJ IV PRN (10:29)
[2019-07-27] MEDS: cefTRIAXone/NS 1 GM/50 ML 1 GM/50 ML BAG IV SCH (10:30)
[2019-07-27 13:38] VITALS: BP 133/80
--- NOTE | 2019-07-27 16:05 | Discharge Summary ---
Providers - Providers Date of Admission: 07/25/19 21:46 Date of discharge: 07/27/19 Attending physician: VIRGINIE WHITAKER Primary care physician: SNOWBOARDER Hospitalization Reason for admission: syncope/acute on chronic kidney disease/UTI Condition: Stable Pertinent studies: CT head CT cervical spine Carotid Doppler Renal ultrasound Hospital course: Patient is a 69-year-old female with known history of hypertension, diabetes mellitus, history of kidney stones, chronic kidney disease presenting to the emergency room complaining of diarrhea which has been ongoing for the past few days. She also had a fall about 24 hours ago while she felt dizzy. She denies any loss of consciousness she denies any fever or chills, no nausea or vomiting.She denies any sick contacts and denies any recent travel. Patient was admitted,syncope w/u was done.symptomatically managed Fall precautions,received antibiotics for UTI. Symptoms improved. Today patient feels better,no new complaints,vital signs,stable. Physical exam unremarkable Discharge Diagnosis: --h/o Syncope Current Visit: Yes Status: Acute No new Episodes after admission CT head negative, carotid Doppler no acute abnormalities -- Acute on chronic renal failure Current Visit: Yes Status: Acute Patient started on IV fluid normal saline we will monitor BUN and creatinine. Follow-up nephrology, urology per schedule upon discharge --history of ureteric stent; Ultrasound mild hydronephrosis Patient recently seen Dr. Newsome Advised to follow up at scheduled -- Dehydration Current Visit: Yes Status: Acute Improved -- UTI (urinary tract infection) Current Visit: Yes Status: Acute She has been placed on empiric IV antibiotics Rocephin for UTI. Patient already has prescription for nitrofurantoin as recommended by Urologist -- Anemia Current Visit: No Status: Acute Possibly chronic. We monitor CBC. --Severe mal nutrition/hypoalbuminemia Nutrition supplements and supportive care --DVT prophylaxis Current Visit: Yes Status: Acute Patient placed on sequential compression device. Stable at discharge Disposition: [place]-01 TO HOME OR SELFCARE Time spent for discharge: 32 min Core Measure Documentation - Palliative Care Palliative Care/ Comfort Measures: Not Applicable - Core Measures Any of the following diagnoses?: none Exam - Constitutional Vitals: Temp Pulse Resp BP Pulse Ox 98.4 F 92 H 20 133/80 98 07/27/19 13:26 07/27/19 13:26 07/27/19 13:26 07/27/19 13:26 07/27/19 13:26 General appearance: Present: no acute distress, well-nourished - EENT Eyes: Present: PERRL, EOM intact - Neck Neck: Present: supple, normal ROM - Respiratory Respiratory effort: normal Respiratory: negative: rales, rhonchi, wheezing - Cardiovascular Rhythm: regular Heart Sounds: Present: S1 & S2 - Extremities Extremities: no ischemia, No edema - Abdominal General gastrointestinal: Present: soft, non-tender, non-distended, normal bowel sounds - Integumentary Integumentary: Present: clear, warm - Musculoskeletal Musculoskeletal: strength equal bilaterally - Psychiatric Psychiatric: appropriate mood/affect, cooperative - Neurologic Neurologic: CNII-XII intact, moves all extremities Plan Activity: advance as tolerated, fall precautions Diet: low salt Additional Instructions: F/U private nephrology[Kidney doctor] in 2 weeks. Fall Precautions. No new Prescriptions Follow up with: DANTE SAM MD [Primary Care Provider] - 3-5 Days TIFFANIE NEWSOME MD [Staff Physician] - 14 Days
== END 2019-07-27 16:25 | disposition home or self-care (01) | DRG 682 ==
LOC: ED 15:27 → 4A 21:46 → 2B-ACE 07-26 13:28
PROVIDERS: ADMIT Internal Medicine Geriatric Medicine; ATTEND Internal Medicine
DX: N17.9 Acute kidney failure, unspecified (principal); E43 Unspecified severe protein-calorie malnutrition; N39.0 Urinary tract infection, site not specified; E86.0 Dehydration; K21.9 Gastro-esophageal reflux disease without esophagitis; N18.9 Chronic kidney disease, unspecified; W18.39XA Other fall on same level, initial encounter; I12.9 Hypertensive chronic kidney disease with stage 1 through stage 4 chronic kidney disease, or unspecified chronic kidney disease; E11.22 Type 2 diabetes mellitus with diabetic chronic kidney disease; R55 Syncope and collapse; D64.9 Anemia, unspecified; Z87.442 Personal history of urinary calculi; Z79.01 Long term (current) use of anticoagulants; Z79.4 Long term (current) use of insulin; Z79.899 Other long term (current) drug therapy; Z88.5 Allergy status to narcotic agent; Z88.2 Allergy status to sulfonamides; Z88.8 Allergy status to other drugs, medicaments and biological substances; Z91.048 Other nonmedicinal substance allergy status; Z90.710 Acquired absence of both cervix and uterus; Y93.89 Activity, other specified; Y92.098 Other place in other non-institutional residence as the place of occurrence of the external cause; Y99.8 Other external cause status; Z83.3 Family history of diabetes mellitus; Z82.49 Family history of ischemic heart disease and other diseases of the circulatory system
CPT/HCPCS: 36415; 70450; 72125; 76770; 80048; 80053; 81001; 82962; 84484; 85025; 85610; 85730; 87086; 93005; 93010; 93880; 96374; G0378; J0696; J2405; J7030

== ENCOUNTER 2019-09-28 11:22 | Day surgery (SDC) | payer OTHER ==
[~2019-09-28 11:22] MED LIST changes: -IOHEXOL 300 MG/ML 50ML IV ONE; +ceFAZolin/Water 2 GM/20 ML 2 GM/20 ML SYRINGE IV NR; -metroNIDAZOLE/NS 500 MG/100 ML 500 MG/100 ML BAG IV NR
[2019-09-28] MEDS ORDERED: SODIUM CHLORIDE 0.9% 1000 ML 1,000 ML IV SCH (11:45)
[2019-09-28] MEDS ORDERED: fentaNYL 100 MCG/2 ML INJ IV PRN (12:15)
[2019-09-28] MEDS ORDERED: ONDANSETRON 4 MG/2 ML INJ IV PRN (12:15)
[2019-09-28] MEDS ORDERED: fentaNYL 100 MCG/2 ML INJ ONE (12:20)
[2019-09-28] MEDS ORDERED: LIDOCAINE MPF (2%) 20 MG/1 ML VIAL 5 ML ONE (12:20)
[2019-09-28] MEDS ORDERED: propofoL 200 MG/20 ML VIAL IV ONE (12:20)
--- NOTE | 2019-09-28 12:20 | Anesthesia Day of Surgery ---
Anesthesia Day of Surgery - Day of Surgery Patient Examined: Yes Patient H&P Reviewed: Yes Patient is NPO: Yes Beta Blockers: Yes
--- NOTE | 2019-09-28 12:25 | Anesthesia Consultation ---
Anesthesia Consult and Med Hx Date of service: 09/28/19 - Airway Anesthetic Teeth Evaluation: Poor ROM Head & Neck: Adequate Mental/Hyoid Distance: Adequate Mallampati Class: Class II Intubation Access Assessment: Good - Pre-Operative Health Status ASA Pre-Surgery Classification: ASA3 Proposed Anesthetic Plan: General - Pulmonary Hx Smoking: Yes (STOPPED 1976) Hx Asthma: No Hx Respiratory Symptoms: No SOB: Yes (SOB) COPD: No Hx Pneumonia: No Hx Sleep Apnea: Yes (DX SLEEP APNEA WITH NO CPAP USE) - Cardiovascular System Hx Hypertension: Yes (X 7 YRS) Hx Coronary Artery Disease: Yes Hx Heart Attack/AMI: No Hx Percutaneous Transluminal Coronary Angioplasty (PTCA): No Hx Cardia Arrhythmia: Yes (pA-fib) Hx Pacemaker: Yes (patient reports that she is not pacer dependent) - Central Nervous System Hx Seizures: No CVA: No Hx Psychiatric Problems: Yes (anxiety/depression) - Gastrointestinal Hx Gastroesophageal Reflux Disease: Yes (well controlled) - Endocrine Hx Renal Disease: Yes (CKD with kidney stones, nephrostomy) Hx End Stage Renal Disease: No Hx Liver Disease: No Hx Insulin Dependent Diabetes: Yes (insulin prn for glucose >200. Reports no recent insulin use.) Hx Thyroid Disease: No - Hematic Hx Anemia: Yes - Other Systems Hx Cancer: No Hx Obesity: Yes (BMI 38.5, s/p gastric bypass) - Additional Comments Anesthesia Medical History Comments: Was here 07/2019
[2019-09-28 12:32] LABS: Basophils % (Auto) 0.7 % (0.0-1.8); Eosinophils # (Auto) 0.1 K/mm3 (0.0-0.4); Eosinophils % (Auto) 1.9 % (0.0-4.3); Hematocrit 27.6 % (30.3-42.9); Hemoglobin 9.3 gm/dl (10.1-14.3); Lymphocytes % (Auto) 26.3 % (13.4-35.0); Mean Corpuscular HGB Conc 34 % (30-34); Mean Corpuscular Volume 103 fl (79-97); Monocytes # (Auto) 0.4 K/mm3 (0.0-0.8); Monocytes % (Auto) 10.6 % (0.0-7.3); Platelet Count 228 K/mm3 (140-440); Red Blood Count 2.69 M/mm3 (3.65-5.03)
[2019-09-28 12:37] LABS: Red Cell Distribution Width 24.1 % (13.2-15.2)
[2019-09-28 12:44] LABS: Calcium 7.4 mg/dL (8.4-10.2)
[2019-09-28] MEDS ORDERED: LACTATED RINGERS 1,000 ML IV SCH (13:00)
[2019-09-28] MEDS ORDERED: WATER FOR IRRIG STERILE 2000 ML IR ONE (13:53)
[2019-09-28] MEDS ORDERED: ONDANSETRON 4 MG/2 ML INJ ONE (14:02)
--- NOTE | 2019-09-28 14:09 | Short Stay Summary ---
Short Stay Documentation Date of service: 09/28/19 Narrative H&P: 69 yr old female with recurrent stones & UTi with hydronephrosis daughter present needs stent exchange + abd pain - History Past Medical History: hypertension, hyperlipidemia - Allergies and Medications Current Medications: Allergies Sulfa (Sulfonamide Antibiotics) Allergy (Verified 09/03/18 11:09) Itching, VOMITING adhesive tape Adverse Reaction (Verified 02/01/19 16:43) SKIN IRRITATION hydromorphone HCl [From Dilaudid] Adverse Reaction (Verified 09/14/18 14:07) HALLUCINATIONS,confusion oxycodone [From Percocet] Adverse Reaction (Verified 09/03/18 11:09) Itching BANDAIDS Adverse Reaction (Uncoded 09/03/18 11:09) SKIN IRRITATION Home Medications Medication Instructions Recorded Confirmed Last Taken Type Insulin Detemir (Nf) [Levemir 1 unit SQ QHS PRN 01/28/17 09/28/19 08/16/19 History Flextouch (Nf)] Pantoprazole [Protonix TAB] 40 mg PO QDAY 01/28/17 09/26/19 09/27/19 History ALPRAZolam [Xanax TAB] 1 mg PO PRN PRN 06/29/17 09/28/19 09/25/19 History Ondansetron [Zofran ODT TAB] 4 mg PO Q4HR PRN #20 tab.rapdis 12/01/18 09/26/19 09/27/19 Rx HYDROcodone/APAP 5-325 [[place] 1 - 2 each PO Q6HR PRN #20 tablet 01/06/19 09/26/19 03/30/19 21:00 Rx 5-325 mg TAB] AtorvaSTATin [Lipitor] 20 mg PO QHS 07/26/19 09/28/19 09/25/19 History Metoprolol Succinate [Toprol Xl] 50 mg PO DAILY 07/26/19 09/26/19 09/27/19 History Ciprofloxacin TAB 500 mg PO BID 09/23/19 09/23/19 09/27/19 History Clopidogrel [Plavix] 75 mg PO DAILY 09/23/19 09/28/19 09/22/19 History amLODIPine 5 mg PO DAILY 09/23/19 09/28/19 09/28/19 08:00 History Mirabegron [Myrbetriq] 50 mg PO QDAY 09/26/19 09/28/19 09/14/19 History traMADoL [Ultram] 50 mg PO Q6HR PRN 09/26/19 09/28/19 09/14/19 History Active Medications Fentanyl (Sublimaze) 50 mcg IV Q5MIN PRN PRN Reason: Pain , Severe (7-10) Cefazolin Sodium (Ancef/Sterile Water 2 Gm/20 Ml) 2 gm in 20 mls @ 80 mls/hr IV PREOP NR; Protocol Stop: 09/28/19 23:59 Sodium Chloride (Nacl 0.9% 1000 Ml) 1,000 mls @ 100 mls/hr IV DIRECT DIONISIO Last Admin: 09/28/19 12:31 Dose: 100 mls/hr Documented by: Lactated Ringer's (Lactated Ringers) 1,000 mls @ 100 mls/hr IV DIRECT DIONISIO Last Admin: 09/28/19 12:58 Dose: 100 mls/hr Documented by: Ondansetron HCl (Zofran) 4 mg IV ONCE PRN PRN Reason: Nausea And Vomiting - Physical exam General appearance: no acute distress, well-nourished Integumentary: no rash Lungs: Clear to auscultation Heart: Regular rate, No murmurs Gastrointestinal: normal Extremities: no ischemia Neurological: Normal gait - Brief post op/procedure progress note Date of procedure: 09/28/19 Pre-op diagnosis: hydronephrosis Post-op diagnosis: same Procedure: cysto, prg, bilat stent exchange Anesthesia: GETA Surgeon: TIFFANIE LYNN Estimated blood loss: minimal Condition: stable - Hospital course Hospital course: darrion choudhary zofran on chart - Disposition Condition at discharge: Stable Disposition: DC-01 TO HOME OR SELFCARE Short Stay Discharge Plan Follow up with: PRIMARY CARE, [Primary Care Provider] - 7 Days
--- NOTE | 2019-09-28 14:25 | Operative Report ---
PREOPERATIVE DIAGNOSES: Bilateral hydronephrosis, bilateral ureteral strictures, recurrent urinary tract infections. POSTOPERATIVE DIAGNOSES: Bilateral hydronephrosis, bilateral ureteral strictures, recurrent urinary tract infections. PROCEDURE: Cystoscopy, bilateral retrograde pyelograms, bilateral stent exchange (6-[place] 22 cm with an inch short internal string). SURGEON: Miguel Newsome MD ANESTHESIA: General. ESTIMATED BLOOD LOSS: Minimal. FLUIDS: Crystalloid. COMPLICATIONS: No complications. INDICATIONS: This patient is a 69-year-old female well known to our service with long history of ureteral stones, ureteral strictures and recurrent urinary tract infections, refractory to leaving stents out. She has had significant scarring on the left side, requiring nephrostomy tubes and difficulty getting stent back in the ureter. Today, she has had some abdominal pain and this mass effect appears to possibly be a ventral hernia. This is a new finding. She presents for surgical intervention. DESCRIPTION OF PROCEDURE: The patient was taken to the operative suite, placed in a supine position. After adequate general anesthesia, placed in a dorsal lithotomy position, prepped and draped in a sterile fashion. Pancystourethroscopy was performed with a 22-[place] Storz cystoscope. Obvious stents could be appreciated in both ureters. No tumors or stones were noted. Bilateral retrograde pyelograms were obtained with an 8-[place] Carbon catheter and 8 mL of contrast. With the stents in, no extravasation could be appreciated. Contrast could be seen in the renal pelvis. The right stent was engaged with alligator grasper, pulled out to the meatus. A new stent was exchanged over the wire without difficulty. Scope was reinserted and again the left stent was engaged and pulled out and a new stent placed over a wire. Fluoroscopy confirmed adequate position. There was a short internal string bilaterally. Bladder was drained. She was extubated and taken to recovery room. Due to this abdominal mass effect, we will obtain a CT abdomen and pelvis for further evaluation. She will go home on Zofran, Welches, and Macrobid. JOB# [id number] [facility]
--- NOTE | 2019-09-28 14:28 | Fluoroscopy Report ---
5 fluoroscopic images submitted Indication: Intraoperative localization Impression: 5 images of the abdomen were submitted for documentation purposes with radiology involve ment. Bilateral retrograde pyelogram was performed with stent exchange. A total of 12 mL of Omnipaqu e 300 was utilized for this exam. Please refer to the operative note for complete details. Fluoroscopic time: 28 seconds Signer Name: Mamadou Gomez MD Signed: 09/28/2019 2:24 PM Workstation Name: [id number]
--- NOTE | 2019-09-28 14:36 | Post Anesthesia Evaluation ---
- Post Anesthesia Evaluation Patient Participated: Yes Airway Patent: Yes Stable Respiratory Function: Yes Nausea/Vomiting: No Temp > 96.8F: Yes Pain Manageable: Yes Adequeate Hydration: Yes Anesthesia Complications: No Block Receding Appropriately: Not Applicable
--- NOTE | 2019-09-28 15:52 | Cat Scan Report ---
CT ABDOMEN AND PELVIS WITHOUT CONTRAST HISTORY: Bowel pain and recurrent UTI. Status post recent retrograde urography and bilateral ureteral stent exchange. COMPARISON: 12/01/2018 TECHNIQUE: Routine abdominal and pelvic CT exam performed without contrast. Lack of intravenous cont rast limits evaluation of the vascular and solid organs.. All CT scans at this location are performed using CT dose reduction for ALARA by means of automated exposure control. FINDINGS: CT ABDOMEN: Lung Bases: No significant abnormality. Liver: No significant abnormality. Biliary: Normal bile ducts status post cholecystectomy. Spleen: No significant abnormality. Unenlarged. Pancreas: No significant abnormality. Adrenals: No significant abnormality. Kidneys: Moderate retained contrast in mildly dilated renal collecting systems. Bilateral renal stent s. Stable chronic thickening of the right renal pelvis and proximal ureter. No urinary calculi. Stabl e bilateral renal cysts. Lymphatics: No lymphadenopathy. Vasculature: No significant abnormality. Bowel/Peritoneum: No significant abnormality. No free air. No free fluid. Appendix not visualized. No pericecal inflammation. CT PELVIC: : No significant abnormality. Status post hysterectomy. Lymphatics: No lymphadenopathy. Osseous Structures: No aggressive appearing osseous lesions. Additional Findings: Ventral abdominal mesh graft with no fluid collection or air associated with the graft. IMPRESSION: 1. Mild bilateral hydronephrosis with ureteral stents in place. No evidence of abscess or pyonephrosi s. 2. No urinary calculus. Signer Name: Espinoza Barakat MD Signed: 09/28/2019 3:47 PM Workstation Name: [id number]
[2019-09-28 16:49] VITALS: BP 126/75
== END 2019-09-28 16:45 | disposition home or self-care (01) ==
LOC: OR 11:22
PROVIDERS: ATTEND Urology
DX: N13.30 Unspecified hydronephrosis (principal); N13.5 Crossing vessel and stricture of ureter without hydronephrosis; N39.0 Urinary tract infection, site not specified; G47.33 Obstructive sleep apnea (adult) (pediatric); I25.10 Atherosclerotic heart disease of native coronary artery without angina pectoris; F41.9 Anxiety disorder, unspecified; F32.9 Major depressive disorder, single episode, unspecified; I12.9 Hypertensive chronic kidney disease with stage 1 through stage 4 chronic kidney disease, or unspecified chronic kidney disease; N18.9 Chronic kidney disease, unspecified; E11.22 Type 2 diabetes mellitus with diabetic chronic kidney disease; E66.9 Obesity, unspecified; I48.91 Unspecified atrial fibrillation; K21.9 Gastro-esophageal reflux disease without esophagitis; Z68.38 Body mass index [BMI] 38.0-38.9, adult; Z87.891 Personal history of nicotine dependence; Z88.2 Allergy status to sulfonamides; Z88.8 Allergy status to other drugs, medicaments and biological substances; Z79.4 Long term (current) use of insulin; Z79.899 Other long term (current) drug therapy; Z90.710 Acquired absence of both cervix and uterus; Z98.890 Other specified postprocedural states; Z87.440 Personal history of urinary (tract) infections
CPT/HCPCS: 36415; 52332; 74176; 74420; 80048; 82962; 85025; A4217; C1758; C1769; C2617; J0690; J2405; J2704; J3010; J7030; J7120; Q9967

== ENCOUNTER 2019-11-01 13:53 | Observation (INO) | payer OTHER, MEDICARE ==
--- NOTE | 2019-11-01 14:44 | Emergency Department Report ---
HPI - General Chief Complaint: Hypoglycemia Time Seen by Provider: 11/01/19 14:34 - HPI HPI: 69-year-old -[place] female presents to the emergency department via EMS from home with what appears to be hypoglycemia. The patient was difficult to arouse this morning and family thought that she was breathing very slowly and potentially that she was in cardiac arrest. EMS arrived and found the patient to have a pulse with some shallow respirations. They did an Accu-Chek and the blood sugar was found to be 30. She was given an amp of D50 and she improved. At the time of my examination the patient is awake, alert, oriented with no complaints. She has a past medical history of hypertension, diabetes, obstructive sleep apnea and previous history of kidney stones with nephrostomy tubes. The patient says that she takes 10 units of Lantus at night, but she did not have any breakfast this morning. Her primary care physician is a Dr. Oro. No fever, chest pain, cough. No recent travel or sick contacts at home. ED Past Medical Hx - Past Medical History Hx Hypertension: Yes (X 7 YRS) Hx Heart Attack/AMI: No Hx Congestive Heart Failure: No Hx Diabetes: Yes (type 2- TAKES INSULIN ONLY IF BS IG GREATER THAN 200) Hx Deep Vein Thrombosis: Yes (RT ARM 2013) Hx GERD: Yes Hx Liver Disease: No Hx Renal Disease: Yes (CKD with kidney stones, nephrostomy) Hx Arthritis: Yes Hx Seizures: No Hx Kidney Stones: Yes (HX RETAINED STENT) Hx Asthma: No Hx COPD: No Hx HIV: No Additional medical history: nephrostomy,kidney stones,kidney stents - Surgical History Hx Coronary Stent: No Hx Pacemaker: Yes (patient reports that she is not pacer dependent) Additional Surgical History: HYSTERECTOMY. HERNIA REPAIR - Social History Smoking Status: Never Smoker - Medications Home Medications: Home Medications Medication Instructions Recorded Confirmed Last Taken Type Insulin Detemir (Nf) [Levemir 1 unit SQ QHS PRN 01/28/17 09/28/19 08/16/19 History Flextouch (Nf)] Pantoprazole [Protonix TAB] 40 mg PO QDAY 01/28/17 09/26/19 09/27/19 History ALPRAZolam [Xanax TAB] 1 mg PO PRN PRN 06/29/17 09/28/19 09/25/19 History Ondansetron [Zofran ODT TAB] 4 mg PO Q4HR PRN #20 tab.rapdis 12/01/18 09/26/19 09/27/19 Rx HYDROcodone/APAP 5-325 [[place] 1 - 2 each PO Q6HR PRN #20 tablet 01/06/19 09/26/19 03/30/19 21:00 Rx 5-325 mg TAB] AtorvaSTATin [Lipitor] 20 mg PO QHS 07/26/19 09/28/19 09/25/19 History Metoprolol Succinate [Toprol Xl] 50 mg PO DAILY 07/26/19 09/26/19 09/27/19 History Ciprofloxacin TAB 500 mg PO BID 09/23/19 09/23/19 09/27/19 History Clopidogrel [Plavix] 75 mg PO DAILY 09/23/19 09/28/19 09/22/19 History amLODIPine 5 mg PO DAILY 09/23/19 09/28/19 09/28/19 08:00 History Mirabegron [Myrbetriq] 50 mg PO QDAY 09/26/19 09/28/19 09/14/19 History traMADoL [Ultram] 50 mg PO Q6HR PRN 09/26/19 09/28/19 09/14/19 History ED Review of Systems ROS: Stated complaint: LOW BLOOD SUGAR Other details as noted in HPI Comment: All other systems reviewed and negative Constitutional: denies: chills, fever Eyes: denies: eye pain, vision change ENT: denies: ear pain, throat pain Respiratory: denies: cough, shortness of breath Cardiovascular: denies: chest pain, palpitations Gastrointestinal: denies: abdominal pain, vomiting Genitourinary: denies: dysuria, discharge Musculoskeletal: denies: back pain, arthralgia Skin: denies: rash, lesions Neurological: denies: headache, weakness Physical Exam - Physical Exam Vital Signs: Vital Signs 11/01/19 11/01/19 14:30 14:31 Temperature 98.9 F Pulse Rate 81 Respiratory 18 18 Rate Blood Pressure 121/63 [Left] O2 Sat by Pulse 100 Oximetry Physical Exam: GENERAL: The patient is well-developed well-nourished. HENT: Normocephalic. Atraumatic. Patient has moist mucous membranes. EYES: Extraocular motions are intact. Pupils equal reactive to light bilaterally. NECK: Supple. Trachea is midline. CHEST/LUNGS: Clear to auscultation. There is no respiratory distress noted. HEART/CARDIOVASCULAR: Regular. There is no tachycardia. ABDOMEN: Abdomen is soft, nontender. Patient has normal bowel sounds. SKIN: Skin is warm and dry. NEURO: The patient is awake, alert, and oriented. The patient is cooperative. The patient has no focal neurologic deficits. Normal speech. Cranial nerves II through XII grossly intact. No pronator drift. MUSCULOSKELETAL: There is no tenderness or deformity. There is no evidence of acute injury. ED Course Vital Signs 11/01/19 11/01/19 14:30 14:31 Temperature 98.9 F Pulse Rate 81 Respiratory 18 18 Rate Blood Pressure 121/63 [Left] O2 Sat by Pulse 100 Oximetry ED Medical Decision Making - Lab Data Result diagrams: 11/01/19 16:16 11/01/19 19:30 - EKG Data -: EKG Interpreted by Me EKG shows normal: sinus rhythm, axis, intervals, QRS complexes, ST-T waves (T wave inversions to the anterior leads and flat T waves to lateral and inferior leads) Rate: normal - EKG Data When compared to previous EKG there are: no significant change Interpretation: unchanged when compared t (07/25/19) - Radiology Data Radiology results: report reviewed, image reviewed interpreted by me: Chest x-ray does not show any acute process. There are no pleural effusions, obvious pneumonia and there is no pneumothorax. NONENHANCED CT SCAN OF THE HEAD: INDICATION / CLINICAL INFORMATION: 69 years Female; Dizziness. TECHNIQUE: Routine CT head without contrast. All CT scans at this location are performed using CT dose reduction for ALARA by means of automated exposure control. COMPARISON: CT scan of the head from 07/25/2019 FINDINGS: BRAIN / INTRACRANIAL CONTENTS: No acute hemorrhage, mass effect, midline shift, hydrocephalus, or acute, large territorial infarct. No chronic infarct or focal atrophy. Normal brain volume and ventricular/sulcal size for age. No significant white matter abnormality. CRANIOCERVICAL JUNCTION: No significant abnormality. ORBITS: Soft tissue swelling left upper eyelid seen in the last CT scan has resolved completely. SINUSES / MASTOIDS: No significant abnormality of the visualized paranasal sinuses or mastoid air cells. ADDITIONAL FINDINGS: None. IMPRESSION: No acute parenchymal lesion in the brain - Medical Decision Making This patient presents to the emergency department after having an unresponsive episode this morning. At that time it appeared to be secondary to hypoglycemia with a blood sugar of 30 and the patient responded to an amp of D50. A CT scan of the head without contrast was done that does not show any bleed, shift, mass, ischemia, or any other acute process. Patient's labs shows some mild hyperkalemia, chronic kidney disease and a moderate to low bicarb level. Patient was given something to eat but did not require any further amps of D50 and her blood sugar has stayed within the normal range. Patient was given a do se of Kayexalate for the mild hyperkalemia, IV fluid resuscitation. EKG was done that does not show any signs of ST elevation MS or dysrhythmia. The patient was tested walking around the emergency department and appears unstable. Apparently the patient has had multiple recurrent falls recently. For this reason, along with the patient's unresponsive episode this morning, the patient will be admitted to the hospital for further evaluation and treatment and was accepted for admission by the hospitalist, Dr. Clark. - Differential Diagnosis TIA, Hypoglycemia, Vertigo, Dysrythmia Critical Care Time: No Critical care attestation.: If time is entered above; I have spent that time in minutes in the direct care of this critically ill patient, excluding procedure time. ED Disposition Clinical Impression: Unresponsive episode, Gait instability, Hyperkalemia, Anemia, Dizziness Disposition: OP ADMIT IP TO THIS HOSP Is pt being admited?: Yes Condition: Fair Referrals: PRIMARY CARE, [Primary Care Provider] - 3-5 Days Time of Disposition: 21:41
[2019-11-01 16:19] LABS: Basophils % (Auto) 0.4 % (0.0-1.8); Eosinophils # (Auto) 0.1 K/mm3 (0.0-0.4); Eosinophils % (Auto) 1.6 % (0.0-4.3); Hematocrit 29.1 % (30.3-42.9); Hemoglobin 9.4 gm/dl (10.1-14.3); Lymphocytes # (Auto) 0.7 K/mm3 (1.2-5.4); Lymphocytes % (Auto) 12.3 % (13.4-35.0); Mean Corpuscular HGB Conc 32 % (30-34); Mean Corpuscular Volume 111 fl (79-97); Monocytes # (Auto) 0.5 K/mm3 (0.0-0.8); Monocytes % (Auto) 8.2 % (0.0-7.3); Platelet Count 197 K/mm3 (140-440); Red Blood Count 2.62 M/mm3 (3.65-5.03); Red Cell Distribution Width 19.3 % (13.2-15.2)
[2019-11-01 16:38] LABS: Albumin 2.7 g/dL (3.9-5)
[2019-11-01] MEDS ORDERED: SODIUM POLYSTYRENE 15 GM/60 ML ORAL LIQD PO ONE (16:40)
--- NOTE | 2019-11-01 17:03 | XRay Report ---
CHEST 1 VIEW INDICATION: SOB. COMPARISON: 10/08/2018 FINDINGS: Support devices: Stable satisfactory device positioning. Heart: Within normal limits. Lungs/Pleura: No acute air space or interstitial disease. Additional findings: None. IMPRESSION: 1. No acute findings. Signer Name: Mamadou Gomez MD Signed: 11/01/2019 4:58 PM Workstation Name: [id number]
[2019-11-01 17:18] LABS: Bacteria,Urine 1+ /HPF (Negative); Bilirubin,Urine NEG (Negative); Blood,Urine MOD (Negative); Color,Urine Yellow (Yellow); Mucus,Urine FEW /HPF; Protein,Urine <15 mg/dL mg/dL (Negative); Urobilinogen,Urine < 2.0 mg/dL (<2.0)
[2019-11-01] MEDS ORDERED: SODIUM CHLORIDE 0.9% 1000 ML 1,000 ML IV ONE (17:27)
--- NOTE | 2019-11-01 18:57 | Cat Scan Report ---
NONENHANCED CT SCAN OF THE HEAD: INDICATION / CLINICAL INFORMATION: 69 years Female; Dizziness. TECHNIQUE: Routine CT head without contrast. All CT scans at this location are performed using CT dos e reduction for ALARA by means of automated exposure control. COMPARISON: CT scan of the head from 07/25/2019 FINDINGS: BRAIN / INTRACRANIAL CONTENTS: No acute hemorrhage, mass effect, midline shift, hydrocephalus, or ac enrrique, large territorial infarct. No chronic infarct or focal atrophy. Normal brain volume and ventricu lar/sulcal size for age. No significant white matter abnormality. CRANIOCERVICAL JUNCTION: No significant abnormality. ORBITS: Soft tissue swelling left upper eyelid seen in the last CT scan has resolved completely. SINUSES / MASTOIDS: No significant abnormality of the visualized paranasal sinuses or mastoid air andreea ls. ADDITIONAL FINDINGS: None. IMPRESSION: No acute parenchymal lesion in the brain Signer Name: Linda Cha MD Signed: 11/01/2019 6:53 PM Workstation Name: [id number]
[2019-11-01 20:02] LABS: Calcium 6.8 mg/dL (8.4-10.2)
[2019-11-01] MEDS ORDERED: NITROFURANTOIN MONOHYD/M-CRYST 100 MG CAP PO ONE (20:46)
[2019-11-01] MEDS ORDERED: ACETAMINOPHEN 325 MG TAB PO PRN (22:48)
[2019-11-01] MEDS ORDERED: DEXTROSE 50% IN WATER (25GM) 50 ML SYRINGE IV PRN (22:48)
[2019-11-01] MEDS ORDERED: ONDANSETRON 4 MG/2 ML INJ IV PRN (22:48)
[2019-11-01] MEDS ORDERED: SODIUM CHLORIDE 0.9% 1000 ML 1,000 ML IV SCH (23:00)
--- NOTE | 2019-11-02 00:47 | History and Physical Report ---
History of Present Illness Date of examination: 11/01/19 Date of admission: 11/01/19 21:41 Chief complaint: Altered Mental Status History of present illness: 69-year-old female with known history of diabetes mellitus, history of GERD, history of renal stents secondary to kidney stones was brought into the emergency room today after being found unresponsive. She was said to have had a blood sugar of about 30. She has received D50 prior to reporting to the emerg ency room. She also has complained of generalized body weakness. Patient indicates that she has been compliant with her medications and has just been started on Lantus insulin recently or had at dinner much Kami before taking her Lantus insulin injection. Work-up in the emergency room however reveals mild UTI, mildly elevated potassium and dehydration. She was started on IV fluid, empiric IV antibiotics for UTI. Past History Past Medical History: diabetes, GERD, other (H/O Renal Stones) Past Surgical History: hysterectomy, hernia repair Social history: smoking (Quit Tobacco use few years ago.) Family history: no significant family history Medications and Allergies Allergies Allergy/AdvReac Type Severity Reaction Status Date / Time Sulfa (Sulfonamide Allergy Itching, Verified 09/03/18 11:09 Antibiotics) VOMITING adhesive tape AdvReac SKIN Verified 02/01/19 16:43 IRRITATION hydromorphone HCl AdvReac HALLUCINATI Verified 09/14/18 14:07 [From Dilaudid] ONS,confusi on oxycodone [From Percocet] AdvReac Itching Verified 09/03/18 11:09 BANDAIDS AdvReac SKIN Uncoded 09/03/18 11:09 IRRITATION Home Medications Medication Instructions Recorded Confirmed Last Taken Type Insulin Detemir (Nf) [Levemir 1 unit SQ QHS PRN 01/28/17 09/28/19 08/16/19 Hist ory Flextouch (Nf)] Pantoprazole [Protonix TAB] 40 mg PO QDAY 01/28/17 09/26/19 09/27/19 History ALPRAZolam [Xanax TAB] 1 mg PO PRN PRN 06/29/17 09/28/19 09/25/19 History Ondansetron [Zofran ODT TAB] 4 mg PO Q4HR PRN #20 tab.rapdis 12/01/18 09/26/19 09/27/19 Rx HYDROcodone/APAP 5-325 [[place] 1 - 2 each PO Q6HR PRN #20 tablet 01/06/19 09/26/19 03/30/19 21:00 Rx 5-325 mg TAB] AtorvaSTATin [Lipitor] 20 mg PO QHS 07/26/19 09/28/19 09/25/19 History Metoprolol Succinate [Toprol Xl] 50 mg PO DAILY 07/26/19 09/26/19 09/27/19 History Ciprofloxacin TAB 500 mg PO BID 09/23/19 09/23/19 09/27/19 History Clopidogrel [Plavix] 75 mg PO DAILY 09/23/19 09/28/19 09/22/19 History amLODIPine 5 mg PO DAILY 09/23/19 09/28/19 09/28/19 08:00 History Mirabegron [Myrbetriq] 50 mg PO QDAY 09/26/19 09/28/19 09/14/19 History traMADoL [Ultram] 50 mg PO Q6HR PRN 09/26/19 09/28/19 09/14/19 History Active Meds: Active Medications Acetaminophen (Tylenol) 650 mg PO Q4H PRN PRN Reason: Pain MILD(1-3)/Fever >100.5/MANNING Dextrose (D50w (25gm) Syringe) 50 ml IV Q30MIN PRN; Protocol PRN Reason: Hypoglycemia Heparin Sodium (Porcine) (Heparin) 5,000 unit SUB-Q Q8HR DIONISIO Sodium Chloride (Nacl 0.9% 1000 Ml) 1,000 mls @ 125 mls/hr IV DIRECT DIONISIO Ceftriaxone Sodium (Rocephin/Ns 1 Gm/50 Ml) 1 gm in 50 mls @ 100 mls/hr IV Q24HR DIONISIO; Protocol Insulin Human Lispro (Humalog) 0 unit SUB-Q ACHS DIONISIO; Protocol Morphine Sulfate (Morphine) 2 mg IV Q4H PRN PRN Reason: Pain, Moderate (4-6) Ondansetron HCl (Zofran) 4 mg IV Q8H PRN PRN Reason: Nausea And Vomiting Sodium Chloride (Sodium Chloride Flush Syringe 10 Ml) 10 ml IV BID DIONISIO Sodium Chloride (Sodium Chloride Flush Syringe 10 Ml) 10 ml IV PRN PRN PRN Reason: LINE FLUSH Review of Systems Constitutional: no fever, no chills Cardiovascular: no chest pain, no palpitations Respiratory: no cough, no shortness of breath Gastrointestinal: no nausea, no vomiting, no diarrhea Genitourinary Female: no dysuria, no hematuria Musculoskeletal: no neck pain, no low back pain Integumentary: no rash, no pruritis Neurological: confusion, no headaches Exam - Constitutional Vitals: Temp Pulse Resp BP Pulse Ox 98.6 F 104 H 20 149/89 100 11/01/19 20:19 11/01/19 20:19 11/01/19 20:19 11/01/19 20:19 11/01/19 20:19 General appearance: Present: no acute distress, well-nourished - EENT Eyes: Present: PERRL, EOM intact ENT: hearing intact, clear oral mucosa, dentition normal - Neck Neck: Present: supple, normal ROM - Respiratory Respiratory effort: normal Respiratory: bilateral: CTA - Cardiovascular Rhythm: regular Heart Sounds: Present: S1 & S2 - Extremities Extremities: no ischemia, pulses intact, pulses symmetrical, No edema, Full ROM Peripheral Pulses: within normal limits - Abdominal General gastrointestinal: Present: soft, non-tender, non-distended - Integumentary Integumentary: Present: clear, warm, dry - Musculoskeletal Musculoskeletal: strength equal bilaterally - Psychiatric Psychiatric: appropriate mood/affect, intact judgment & insight, cooperative - Neurologic Neurologic: CNII-XII intact, moves all extremities Results - Labs CBC & Chem 7: 11/02/19 05:16 11/02/19 05:16 Labs: Abnormal lab results 11/01/19 11/01/19 11/01/19 Range/Units 14:38 15:44 16:16 RBC 2.62 L (3.65-5.03) M/mm3 Hgb 9.4 L (10.1-14.3) gm/dl Hct 29.1 L (30.3-42.9) % MCV 111 H (79-97) fl MCH 36 H (28-32) pg RDW 19.3 H (13.2-15.2) % Lymph % (Auto) 12.3 L (13.4-35.0) % [place] % (Auto) 8.2 H (0.0-7.3) % Lymph # 0.7 L (1.2-5.4) K/mm3 Seg Neutrophils % 77.5 H (40.0-70.0) % Potassium (3.6-5.0) mmol/L Chloride (98-107) mmol/L Carbon Dioxide (22-30) mmol/L BUN (7-17) mg/dL Creatinine (0.7-1.2) mg/dL POC Glucose 135 H 107 H (70-105) Calcium (8.4-10.2) mg/dL ALT (7-56) units/L Alkaline Phosphatase (35-129) units/L Total Protein (6.3-8.2) g/dL Albumin (3.9-5) g/dL Urine WBC (Auto) (0.0-6.0) /HPF 11/01/19 11/01/19 11/01/19 Range/Units 16:16 16:25 19:30 RBC (3.65-5.03) M/mm3 Hgb (10.1-14.3) gm/dl Hct (30.3-42.9) % MCV (79-97) fl MCH (28-32) pg RDW (13.2-15.2) % Lymph % (Auto) (13.4-35.0) % [place] % (Auto) (0.0-7.3) % Lymph # (1.2-5.4) K/mm3 Seg Neutrophils % (40.0-70.0) % Potassium 5.4 H 5.2 H (3.6-5.0) mmol/L Chloride 112.1 H 115.4 H (98-107) mmol/L Carbon Dioxide 15 L 15 L (22-30) mmol/L BUN 20 H 18 H (7-17) mg/dL Creatinine 2.0 H 1.9 H (0.7-1.2) mg/dL POC Glucose (70-105) Calcium 7.0 L 6.8 L (8.4-10.2) mg/dL ALT 6 L (7-56) units/L Alkaline Phosphatase 196 H (35-129) units/L Total Protein 5.1 L (6.3-8.2) g/dL Albumin 2.7 L (3.9-5) g/dL Urine WBC (Auto) 8.0 H (0.0-6.0) /HPF Assessment and Plan - Patient Problems (1) Unresponsive episode Current Visit: Yes Status: Acute Plan to address problem: Possibly secondary to the hypoglycemia. Blood glucose will be closely monitored. (2) Dehydration Current Visit: No Status: Acute Plan to address problem: We will continue on IV fluid and will monitor chemistry. (3) UTI (urinary tract infection) Current Visit: No Status: Acute Plan to address problem: Patient has been placed on empiric IV antibiotics. We will await urine culture result. (4) DVT prophylaxis Current Visit: No Status: Acute Plan to address problem: Patient placed on subcutaneous heparin. (5) Full code status Current Visit: No Status: Acute
[2019-11-02] MEDS: MORPHINE 2 MG/1 ML INJ IV PRN ×3 (02:08→17:01)
[2019-11-02] MEDS: HEPARIN 5,000 UNIT/1 ML VIAL SUB-Q SCH ×3 (05:50→22:27)
[2019-11-02 06:23] LABS: Basophils % (Auto) 0.7 % (0.0-1.8); Eosinophils # (Auto) 0.2 K/mm3 (0.0-0.4); Eosinophils % (Auto) 4.1 % (0.0-4.3); Hematocrit 27.5 % (30.3-42.9); Hemoglobin 9.1 gm/dl (10.1-14.3); Lymphocytes # (Auto) 0.8 K/mm3 (1.2-5.4); Lymphocytes % (Auto) 15.1 % (13.4-35.0); Mean Corpuscular HGB Conc 33 % (30-34); Mean Corpuscular Volume 108 fl (79-97); Monocytes # (Auto) 0.6 K/mm3 (0.0-0.8); Monocytes % (Auto) 11.8 % (0.0-7.3); Platelet Count 206 K/mm3 (140-440); Red Blood Count 2.55 M/mm3 (3.65-5.03); Red Cell Distribution Width 18.2 % (13.2-15.2)
[2019-11-02 06:32] LABS: INR 0.92 (0.87-1.13)
[2019-11-02 06:33] LABS: Partial Thromboplastin Time 30.8 Sec. (24.2-36.6)
[2019-11-02 06:40] LABS: Calcium 6.7 mg/dL (8.4-10.2)
[2019-11-02] MEDS: INSULIN LISPRO 100 UNIT/ML SUB-Q SCH ×4 (07:30→22:28)
[2019-11-02] MEDS ORDERED: cefTRIAXone/NS 1 GM/50 ML 1 GM/50 ML BAG IV SCH (10:00)
[2019-11-02] MEDS ORDERED: NON-FORMULARY EACH (Amlodipine 5 MG) PO SCH (10:00)
[2019-11-02] MEDS ORDERED: D5W/0.9% NACL 1,000 ML IV SCH (11:00)
[2019-11-02] MEDS ORDERED: HYDROcodone/ACETAMINOPHEN 5-325 MG TAB PO PRN (13:31)
[2019-11-02] MEDS ORDERED: ALPRAZolam 1 MG TAB PO PRN (13:31)
[2019-11-02] MEDS ORDERED: traMADol 50 MG TAB PO PRN (13:31)
[2019-11-02] MEDS ORDERED: INSULIN DETEMIR SQ PRN (13:31)
--- NOTE | 2019-11-02 13:38 | Event Note ---
Date: 11/02/19 69-year-old female with known history of diabetes mellitus, history of GERD, history of renal stents secondary to kidney stones was brought into the emergency room today after being found unresponsive. She was said to have had a blood sugar of about 30. She has received D50 prior to reporting to the emergency room. She has just been started on Lantus insulin recently or had at dinner much Kami before taking her Lantus insulin injection. Work-up in the emergency room however reveals mild UTI, mildly elevated potassium and dehydration. She was started on IV fluid, empiric IV antibiotics for UTI and admitted for further Mx. will cont iv fluid, order one dose of kayexalate, monitor BMP.
[2019-11-02] MEDS ORDERED: NON-FORMULARY EACH (Mirabegron [Myrbetriq] 50 MG) PO SCH (13:45)
[2019-11-02] MEDS ORDERED: SODIUM POLYSTYRENE 15 GM/60 ML ORAL LIQD PO ONE ×2 (14:00→18:00)
[2019-11-02] MEDS: ONDANSETRON 4 MG ODT TAB PO PRN (17:04)
[2019-11-03] MEDS: HEPARIN 5,000 UNIT/1 ML VIAL SUB-Q SCH ×2 (05:30→14:27)
[2019-11-03 07:12] LABS: Calcium 6.7 mg/dL (8.4-10.2)
--- NOTE | 2019-11-03 08:32 | Discharge Summary ---
Providers - Providers Date of Admission: 11/01/19 21:41 Date of discharge: 11/03/19 Attending physician: DAISY WYATT 11/01/19 22:48 Consult to Dietitian/Nutrition [CONS] Routine Physician Instructions: Reason For Exam: Reason for Consult: Diet education 11/02/19 15:38 Physical Therapy Evaluation and Treat [CONS] Urgent Comment: Reason For Exam: Generalized Weakness Primary care physician: CONTINUING EDUCATION DEAN Hospitalization Condition: Fair Pertinent studies: CT head CXR Hospital course: 69-year-old female with known history of diabetes mellitus, history of GERD, history of renal stents secondary to kidney stones was brought into the emergency room today after being found unresponsive. She was said to have had a blood sugar of about 30. She has received D50 prior to reporting to the emergency room. She has just been started on Lantus insulin recently or had at dinner much Kami before taking her Lantus insulin injection. Work-up in the emergency room however reveals mild UTI, mildly elevated potassium and dehydration. She was started on IV fluid, empiric IV antibiotics for UTI and admitted for further Mx. Also ordered one dose of kayexalate, monitored BMP for hyperkalemia and JULIANA. Her BG remained stable, K level normalized. She also noted to have a low vitamin B12 and folic acid along with a macrocytic anemia. She was started on replacement. she was then discharged home in stable condition with outpt f/u. Discharge diagnosis: Syncope due to hypoghycemia Hypoglycemia, due to insulin Hyperkalemia, resolved JULIANA on CKD 3, from dehydration/vasomotor nephropathy DM typ2 , dietary control for now HTN, stable UTI w/o sepsis, cont abx Vitamin B12 and folate deficiency Macrocytic anemia due to vitamin B12 and folate deficiency Physical exam: General appearance: Present: no acute distress, well-nourished - EENT Eyes: Present: PERRL, EOM intact ENT: hearing intact, clear oral mucosa, dentition normal - Neck Neck: Present: supple, normal ROM - Respiratory Respiratory effort: normal Respiratory: bilateral: CTA - Cardiovascular Rhythm: regular Heart Sounds: Present: S1 & S2 - Extremities Extremities: no ischemia, pulses intact, pulses symmetrical, No edema, Full ROM Peripheral Pulses: within normal limits - Abdominal General gastrointestinal: Present: soft, non-tender, non-distended - Integumentary Integumentary: Present: clear, warm, dry - Musculoskeletal Musculoskeletal: strength equal bilaterally - Psychiatric Psychiatric: appropriate mood/affect, intact judgment & insight, cooperative - Neurologic Neurologic: CNII-XII intact, moves all extremities Disposition: DC-01 TO HOME OR SELFCARE Time spent for discharge: 34 minutes Core Measure Documentation - Palliative Care Palliative Care/ Comfort Measures: Not Applicable - Core Measures Any of the following diagnoses?: none Exam - Constitutional Vitals: Temp Pulse Resp BP Pulse Ox 98.3 F 111 H 20 126/65 98 11/03/19 02:48 11/03/19 02:48 11/03/19 02:48 11/03/19 02:50 11/03/19 02:48 Plan Activity: advance as tolerated, fall precautions Weight Bearing Status: Weight Bear as Tolerated Diet: diabetic Special Instructions: record blood sugar diary Follow up with: PRIMARY CARE, [Primary Care Provider] - 3-5 Days Prescriptions: Folic Acid [Folvite] 1 mg PO QDAY #30 tablet Cyanocobalamin [Vitamin B-12] 1,000 mcg PO QDAY #30 tablet
[2019-11-03] MEDS ORDERED: METOPROLOL SUCCINATE XL 25 MG TAB PO SCH (10:00)
[2019-11-03] MEDS ORDERED: PANTOPRAZOLE 40 MG TAB PO SCH (10:00)
[2019-11-03] MEDS ORDERED: CLOPIDOGREL 75 MG TAB PO SCH (10:00)
[2019-11-03] MEDS ORDERED: amLODIPine 5 MG TAB PO SCH (10:00)
[2019-11-03] MEDS: INSULIN LISPRO 100 UNIT/ML SUB-Q SCH ×2 (10:48→11:30)
[2019-11-03] MEDS: MORPHINE 2 MG/1 ML INJ IV PRN (10:55)
[2019-11-03] MEDS: ONDANSETRON 4 MG ODT TAB PO PRN (10:55)
[2019-11-03] MEDS ORDERED: CYANOCOBALAMIN (VIT B-12) 1000 MCG/1 ML INJ IM SCH (13:00)
[2019-11-03] MEDS ORDERED: FOLIC ACID 1 MG in SODIUM CHLORIDE 0.9% 50 ML IV SCH (14:00)
[2019-11-03 16:21] VITALS: BP 128/65
[2019-11-04] MEDS ORDERED: CYANOCOBALAMIN (VIT B-12) 1000 MCG TAB PO SCH (10:00)
[2019-11-04] MEDS ORDERED: FOLIC ACID 1 MG TAB PO SCH (10:00)
== END 2019-11-03 17:20 | disposition home or self-care (01) ==
LOC: ED 13:53 → 2B-ACE 21:41
PROVIDERS: ADMIT Internal Medicine Geriatric Medicine; ATTEND Internal Medicine
DX: R41.89 Other symptoms and signs involving cognitive functions and awareness (principal); N39.0 Urinary tract infection, site not specified; K21.9 Gastro-esophageal reflux disease without esophagitis; R42 Dizziness and giddiness; R26.81 Unsteadiness on feet; I12.9 Hypertensive chronic kidney disease with stage 1 through stage 4 chronic kidney disease, or unspecified chronic kidney disease; E11.22 Type 2 diabetes mellitus with diabetic chronic kidney disease; N18.9 Chronic kidney disease, unspecified; M19.90 Unspecified osteoarthritis, unspecified site; Z87.891 Personal history of nicotine dependence; Z86.718 Personal history of other venous thrombosis and embolism
CPT/HCPCS: 36415; 70450; 71045; 80048; 80053; 81001; 82607; 82747; 82962; 83036; 84443; 84484; 85025; 85610; 85730; 93005; 93010; 96361; 96365; 96366; 96367; 96372; 96375; 96376; 97161; 99285; A9270; G0378; J0696; J1644; J2270; J2405; J3420; J7030; J7042; Q0162